=== PATIENT | male | born 1950 | race Caucasian/White ===

== ENCOUNTER → 2017-08-10 | Day surgery (SDC) | payer OTHER ==
[2017-07-25 13:10] VITALS: Ht 180.3 cm; Wt 79.5 kg
[~2017-08-10] VITALS: Ht 180.3 cm; Wt 79.5 kg
[~2017-08-10] MED LIST: ASPI81TA21 PO; ATOR-22 PO; DEXL60CA4 PO; IBUP-1050 PO; LIDOCAINE HCL 2% 2 ML VIAL (20MG/ML) ONE; LOSA50TA6 PO; NAPR-998 PO; PROPOFOL IV EMULSION 10 MG/ML 20 ML VIAL IV ONE; TAMS0.4C59 PO; TRIATAB3 PO; ZNTT/150 PO
--- NOTE | 2017-08-10 11:57 | Endo History and Physical ---
History & Physical Date of Service: Aug 10, 2017. Chief Complaint: Mart's,Gerd Referring Physician: Dr. 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 Past Medical History Arthritis, Male Genitourinary Prob., Reflux, High Cholesterol, Hypertension Past Surgical History Hx Cardiac Surgery: No Hx Internal Defibrillator: No Hx Pacemaker: No Hx Abdominal Surgery: No Hx of Implantable Prosthesis: No Hx Post-Op Nausea and Vomiting: No Hx Cancer Surgery: No Hx Thoracic Surgery: No Hx Orthopedic: Yes (LOWER BACK SYNOVIAL CYST REMOVAL) Hx Urinary Tract Surgery: No Family History None Social History Smoking Status: Former Smoker Hx Substance Use: No Hx Alcohol Use: No Allergies Coded Allergies: No Known Allergies (Verified , 08/10/17) Current Medications Reported Home Medications Medications Dose Route/Sig Max Daily Dose Days Date Category Dose Instructions Advil (Ibuprofen) 200 Mg Tab 400-600 Mg PO Q6H PRN 07/25/17 Reported Aleve Pm 220-25 mg (Naproxen Sodium-Diphenhydramin) 1 Tab Tab 2 Tabs PO HS 07/25/17 Reported Zantac (Ranitidine HCl) 150 Mg Tab 150 Mg PO HS 07/25/17 Reported Dexilant (Dexlansoprazole) 60 Mg Cap 60 Mg PO QAM 01/08/14 Reported TAKE 1/2HOUR PRIOR TO BREAKFAST Cozaar (Losartan Potassium) 50 Mg Tab 50 Mg PO QAM 06/04/13 Reported Flomax (Tamsulosin Hcl) 0.4 Mg Cap 0.4 Mg PO QAM 05/27/13 Reported Ecotrin Or Generic (Aspirin) 81 Mg Tab 81 Mg PO HS 05/27/13 Reported Lipitor (Atorvastatin Calcium) 20 Mg Tab 20 Mg PO QAM 05/27/13 Reported Triamterene/Hctz 37.5-25MG (Triamterene/HCTZ) 1 Tab Tab 0.5 Tab PO QAM 05/27/13 Reported Vital Signs Weight (Kilograms): 79.55 Height (Feet): 5 Height (Inches): 11 Date Time Temp Pulse Resp B/P (MAP) Pulse Ox O2 Delivery O2 Flow Rate FiO2 08/10/17 11:29 36.5 83 16 145/84 (104) 97 Room Air Physical Exam General Appearance: WD/WN, no apparent distress Respiratory/Chest: Auscultation: breath sounds normal Cardiovascular: Heart Auscultation: RRR Abdomen: Bowel Sounds: normal Inspection & Palpation: soft, non-distended, no tenderness, guarding & rebound Assessment and Plan Assessment: 67 yo CM who presents for 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 Plan: Proceed with EGD
--- NOTE | 2017-08-10 12:58 | GI REPORT ---
Procedure Date: 08/10/2017 12:35 PM Procedure: Upper GI endoscopy Indications: Follow-up of Mart's esophagus Medicines: Monitored Anesthesia Care Complications: No immediate complications. Estimated Blood Loss: Estimated blood loss: none. Procedure: Pre-Anesthesia Assessment: - Prior to the procedure, a History and Physical was performed, and patient medications and allergies were reviewed. The patient's tolerance of previous anesthesia was also reviewed. The risks and benefits of the procedure and the sedation options and risks were discussed with the patient. All questions were answered, and informed consent was obtained. Prior Anticoagulants: The patient has taken aspirin, last dose was 2 days prior to procedure. ASA Grade Assessment: III - A patient with severe systemic disease. After reviewing the risks and benefits, the patient was deemed in satisfactory condition to undergo the procedure. After obtaining informed consent, the endoscope was passed under direct vision. Throughout the procedure, the patient's blood pressure, pulse, and oxygen saturations were monitored continuously. The scope was introduced through the mouth, and advanced to the second part of duodenum. The upper GI endoscopy was accomplished without difficulty. The patient tolerated the procedure well. Findings: There were esophageal mucosal changes consistent with short-segment Mart's esophagus present at the gastroesophageal junction. The maximum longitudinal extent of these mucosal changes was 2 cm in length. Mucosa was biopsied with a cold forceps for histology. One specimen bottle was sent to pathology. A small hiatus hernia was present. A single 8 mm mucosal papule (nodule) with no bleeding and no stigmata of recent bleeding was found in the cardia. Biopsies were taken with a cold forceps for histology. The examined duodenum was normal. Impression: - Esophageal mucosal changes consistent with short-segment Mart's esophagus. Biopsied. - Small hiatus hernia. - A single mucosal papule (nodule) found in the stomach. Biopsied. - Normal examined duodenum. Recommendation: - Resume previous diet. - Continue present medications. - Await pathology results. - Return to primary care physician as previously scheduled. Mesfin Corral DO 08/10/2017 12:57:38 PM This report has been signed electronically. Note Initiated On: 08/10/2017 12:35 PM I attest to the content of the Intraoperative Record and orders documented therein, exceptions below
--- NOTE | 2017-08-10 13:14 | Anesthesiology Progress Note ---
Anesthesia Post Op Note Date & Time Aug 10, 2017 at 13:13 Vital Signs Pain Intensity: 0 Vital Signs Past 12 Hours Date Time Temp Pulse Resp B/P (MAP) Pulse Ox O2 Delivery O2 Flow Rate FiO2 08/10/17 13:09 86 16 118/86 (97) 96 Room Air 08/10/17 12:59 84 16 115/59 (77) 93 Room Air 08/10/17 11:29 36.5 83 16 145/84 (104) 97 Room Air Notes Mental Status: alert / awake / arousable, participated in evaluation Pt Amnestic to Procedure: Yes Nausea / Vomiting: adequately controlled Pain: adequately controlled Airway Patency, RR, SpO2: stable & adequate BP & HR: stable & adequate Hydration State: stable & adequate Anesthetic Complications: no major complications apparent
[2017-08-10 13:24] VITALS: BP 142/95; PULSE 70; O2SAT 96
--- NOTE | 2017-08-10 13:58 | Discharge Instructions ---
Endoscopy Patient Instructions Date / Procedure(s) Performed Aug 10, 2017. EGD Allergy Information Coded Allergies: No Known Allergies (Verified , 08/10/17) Discharge Date / Findings Aug 10, 2017. Gastric nodule s/p biopsies Mart's Esophagus s/p biopsies Medication Instructions Stopped Medication(s): took ASA last night OK to resume all medications today as prescribed Reported Home Medications Medications Dose Route/Sig Max Daily Dose Days Date Category Dose Instructions Advil (Ibuprofen) 200 Mg Tab 400-600 Mg PO Q6H PRN 07/25/17 Reported Aleve Pm 220-25 mg (Naproxen Sodium-Diphenhydramin) 1 Tab Tab 2 Tabs PO HS 07/25/17 Reported Zantac (Ranitidine HCl) 150 Mg Tab 150 Mg PO HS 07/25/17 Reported Dexilant (Dexlansoprazole) 60 Mg Cap 60 Mg PO QAM 01/08/14 Reported TAKE 1/2HOUR PRIOR TO BREAKFAST Cozaar (Losartan Potassium) 50 Mg Tab 50 Mg PO QAM 06/04/13 Reported Flomax (Tamsulosin Hcl) 0.4 Mg Cap 0.4 Mg PO QAM 05/27/13 Reported Ecotrin Or Generic (Aspirin) 81 Mg Tab 81 Mg PO HS 05/27/13 Reported Lipitor (Atorvastatin Calcium) 20 Mg Tab 20 Mg PO QAM 05/27/13 Reported Triamterene/Hctz 37.5-25MG (Triamterene/HCTZ) 1 Tab Tab 0.5 Tab PO QAM 05/27/13 Reported Provider Instructions Activity Restrictions - No exercising or heavy lifting for 24 hours. - Do not drink alcohol the day of the procedure. - Do not drive a car or operate machinery until the day after the procedure. - Do not make any important decisions or sign important papers in 24 hours after the procedure. Following Day: - Return to full activity which may include returning to work/school. Diet Start your diet with liquids and light foods (jello, soup, juice, toast). Then eat your usual diet if not nauseated. Treatment For Common After Affects For mild abdominal pain, bloating, or excessive gas: - Rest - Eat lightly - Lie on right side Follow-Up Information Follow-up with Dr. Callejas as scheduled Anesthesia Information What You Should Know You have had a procedure that required some medicine to reduce anxiety and discomfort. This treatment is called moderate sedation. After receiving the treatment, you may be sleepy, but you will be able to breathe on your own. The effects of the treatment may last for several hours. Follow these instructions along with Activity/Diet recommendations noted above: * Do NOT do anything where dizziness or clumsiness would be dangerous. * Rest quietly at home today, then you can be up and about tomorrow. * Have a responsible person stay with you the rest of today. * You may have had an I.V. today. If so, you may take the dressing off later today. Recommendations Call your doctor if: * Trouble breathing * Continuous vomiting for more than 24 hours * Temperature above 101 degrees * Severe abdominal pain or bloating * Pain not relieved by pain medicine ordered * There is increased drainage or redness from any incision * A large amount of rectal bleeding greater than 2-3 tablespoons. (If you had a polyp/s removed or have hemorrhoids, a small amount of blood - from the rectum is to be expected.) * You have any unanswered questions or concerns. IN THE EVENT OF A SERIOUS EMERGENCY, GO TO THE NEAREST EMERGENCY ROOM Your discharge instructions were prepared by provider Mesfin Corral. Patient Instructions Signature Page Brando Badillo Patient (or Guardian) Signature/Date: I have read and understand the instructions given to me by my caregivers. Caregiver/RN/Doctor Signature/Date: The above-named patient and/or guardian has received patient instructions on this date. + Original Patient Signature Page (only) stays with chart. Please make copy for patient.
== END | disposition home or self-care (01) ==
LOC: C.GI 11:06
PROVIDERS: ATTEND Internal Medicine
DX: K22.70 Barrett's esophagus without dysplasia (principal); K21.9 Gastro-esophageal reflux disease without esophagitis; K31.9 Disease of stomach and duodenum, unspecified; M19.90 Unspecified osteoarthritis, unspecified site; E78.00 Pure hypercholesterolemia, unspecified; I10 Essential (primary) hypertension; Z87.891 Personal history of nicotine dependence; Z79.82 Long term (current) use of aspirin; K44.9 Diaphragmatic hernia without obstruction or gangrene

== ENCOUNTER → 2017-11-01 | Outpatient (CLI) | payer OTHER ==
[~2017-11-01] MED LIST changes: -LIDOCAINE HCL 2% 2 ML VIAL (20MG/ML) ONE; -PROPOFOL IV EMULSION 10 MG/ML 20 ML VIAL IV ONE
[2017-11-01 13:29] LABS: BASO % 0.2 %; BASO ABS # 0.01 K/uL (0-0.2); COMPLETE YES; EOS % 1.7 %; HEMATOCRIT 44.2 % (42-52); IG% 0.2 %; LYMPH % 21.9 %; LYMPH ABS # 1.31 K/uL (1.2-3.4); MEAN CORPUSCULAR HEMOGLOBIN 31.1 pg (25-34); MEAN CORPUSCULAR HGB CONC 35.3 g/dl (32-36); MEAN PLATELET VOLUME 10.7 fL (7.4-10.4); MONO % 7.9 %; NEUT % 68.1 %; PLATELET COUNT 177 K/uL (130-400); RED BLOOD COUNT 5.02 M/uL (4.7-6.1); WHITE BLOOD COUNT 5.98 K/uL (4.8-10.8)
[2017-11-01 13:46] LABS: ALT/SGPT 39 U/L (12-78); AST/SGOT 23 U/L (15-37); BLOOD UREA NITROGEN 20 mg/dl (7-18); BUN/CREATININE RATIO 20.1 (10-20); CARBON DIOXIDE 28 mmol/L (21-32); CHLORIDE 106 mmol/L (98-107); GLUCOSE 98 mg/dl (70-99); MAGNESIUM 2.4 mg/dl (1.8-2.4); POTASSIUM 3.6 mmol/L (3.5-5.1); SODIUM 139 mmol/L (136-145)
[2017-11-01 13:50] LABS: ALB/GLOB RATIO 1.1 (0.9-2); ALKALINE PHOSPHATASE 125 U/L (45-117); CHOLESTEROL 150 mg/dl (0-200); CHOLESTEROL/HDL RATIO 2.5; HDL CHOLESTEROL 59 mg/dl; TRIGLYCERIDES 85 mg/dl (0-150); VERY LOW DENSITY LIPOPROT CALC 17 mg/dl
[2017-11-01 14:15] LABS: ESTIMATED AVERAGE GLUCOSE 105 mg/dl; HA1C FLAG Normal (Normal)
== END | disposition home or self-care (01) ==
LOC: C.LABSPEC 12:32
PROVIDERS: ATTEND Internal Medicine
DX: I10 Essential (primary) hypertension (principal); E78.5 Hyperlipidemia, unspecified; R73.9 Hyperglycemia, unspecified

== ENCOUNTER → 2018-01-13 | Outpatient (CLI) | payer OTHER ==
[~2018-01-13] MED LIST changes: +RANI150T85 PO; -ZNTT/150 PO
[2018-01-18 15:36] LABS: FECAL OCCULT BLOOD #1 NEGATIVE (NEGATIVE); FECAL OCCULT BLOOD #2 NEGATIVE (NEGATIVE); FECAL OCCULT BLOOD #3 NEGATIVE (NEGATIVE)
== END | disposition home or self-care (01) ==
LOC: C.LABSPEC 15:00
PROVIDERS: ATTEND Internal Medicine
DX: Z12.11 Encounter for screening for malignant neoplasm of colon (principal)

== ENCOUNTER 2019-12-15 00:56 | Observation (INO) ==
[2019-12-15 02:25] LABS: Basophils # (auto) 0.01 K/uL (0-0.2); Basophils % (auto) 0.2 %; Eosinophils # (auto) 0.18 K/uL (0-0.5); Eosinophils % (auto) 2.7 %; Hematocrit (blood only) 39.8 % (42-52); Hemoglobin 13.4 g/dL (14.0-18.0); Immature Granulocytes # (auto) 0.01 K/uL (0.00-0.02); Immature Granulocytes % (auto) 0.2 %; Lymphocytes % (auto) 24.1 %; Mean Corpuscular Hgb Conc 33.7 g/dL (32-36); Mean Corpuscular Volume 86.1 fL (80-100); Mean Platelet Volume 10.3 fL (7.4-10.4); Monocytes # (auto) 0.61 K/uL (0.11-0.59); Monocytes % (auto) 9.2 %; Neutrophils # (auto) 4.23 K/uL (1.4-6.5); Neutrophils % (auto) 63.6 %; Platelet Count 168 K/uL (130-400); RDW Coefficient of Variation 13.4 % (11.5-14.5); RDW Standard Deviation 41.9 fL (36.4-46.3); Red Blood Count 4.62 M/uL (4.7-6.1); White Blood Count 6.64 K/uL (4.8-10.8)
[2019-12-15 02:33] LABS: Albumin Level 3.3 gm/dl (3.4-5.0); BUN Creatinine Ratio 18.7 (10-20); Calcium 8.3 mg/dl (8.5-10.1); Creatinine Clr Calc Pharmacy 67.2 ml/min; Est GFR (African American) 79.3; Est GFR (Non-African American) 68.4; Potassium 3.5 mmol/L (3.5-5.1)
[2019-12-15 02:39] LABS: Bilirubin,Total 0.5 mg/dl (0.2-1); Globulin 3.2 gm/dl (2.5-4.0); Total Protein 6.5 gm/dl (6.4-8.2); Troponin I 0.055 ng/ml (0-0.045)
[2019-12-15 02:40] LABS: Partial Thromboplastin Time 26.6 Seconds (21.0-31.0); Prothrombin Time 10.7 Seconds (9.0-12.0)
[2019-12-15] MEDS ORDERED: FUROSEMIDE 40 MG/4 ML VIAL IV STA (02:41)
[2019-12-15] MEDS ORDERED: ASPIRIN CHEW 324 MG PO STA (02:41)
[2019-12-15] MEDS ORDERED: HEPARIN SODIUM/DEXTROSE 25,000 UNITS/500 ML BAG IV SCH (02:45)
[2019-12-15] MEDS ORDERED: HEPARIN SOD 5,000 UNIT/0.5 ML VIAL ONE (02:50)
[2019-12-15] MEDS ORDERED: Heparin BOLUS **ED Use Only IV STA (03:35)
[2019-12-15] MEDS ORDERED: Heparin Adult STANDARD Wt-Based Dextrose 5% 25,000 units/500 mL IV SCH (03:45)
[2019-12-15 03:57] LABS: Appearance Urine Cloudy (Clear); Bacteria Urine Automated Negative (Negative); Bilirubin Urine Negative (Negative); Blood Urine Negative (Negative); Cast Urine Automated 0 /lpf (0-5); Color Urine Yellow; Epithelial Cell Urine Auto 0-5 /lpf (0-5); Glucose Urine UA Negative (Negative); Ketones Urine Negative (Negative); Leukocyte Esterase Urine Negative (Negative); Nitrite Urine Negative (Negative); Protein Urine Negative (Negative); RBC Urine Automated 0-4 /hpf (0-4); Specific Gravity Urine 1.009 (1.000-1.030); Urobilinogen Urine Negative (Negative); WBC Urine Automated 0 /hpf (0-5); pH Urine 6.5 (4.5-7.5)
--- NOTE | 2019-12-15 04:19 | History & Physical Report ---
Date of Service December 15, 2019 Assessment & Plan (1) Orthopnea: Brando Arnold is a 69 y/o male with past medical history of HTN, BPH, HLD, GERD, Insomnia who presents with CC of Orthopnea. - Received Lasix 20mg IV in ED, clinically no further indication to repeat - CXR in ED performed without rad interpretation, possible there could be some pulmonary edema, but no overt pulmonary congestion, follow up on interpretation - This could be CHF based on symptoms, and will get a Transthoracic echo - mildly elevated trop 0.055 and will trend - if normal TTE, consider possible orthopnea caused by reflux as also noting chronic cough, but need to rule out/investgate CHF - Was started on Heparin Bolus in ED and thus continue with Heparin - okay to continue with home ASA 81mg daily - Nitro SL for chest pain PRN - cardiac monitoring - doubt PE as oxygenating well and no pleuritic chest pain, feels better s/p Lasix Code: Full FENGI: NPO as of now, PPI for GI coverage DVT ppx: Heparin Dispo: Obs to med/surg tele (2) Elevated troponin: as above (3) Hypertension: - continue with home losartan 50mg qday - continue with home triamterene-HCTZ daily (4) HLD (hyperlipidemia): - continue with home Atorvastatin 20mg daily (5) BPH (benign prostatic hyperplasia): - continue with home Tamsulosin 0.4mg daily (6) Difficulty sleeping: - continue with home Trazodone 50mg qHS History of Present Illness Chief Complaint: Orthopnea Primary Care Provider: Kieran Callejas MD Brando Arnold is a 69 y/o male with past medical history of HTN, BPH, HLD, GERD, Insomnia who presents with CC of Orthopnea. He notes for the past 3 days, he has been unable to lay supine without awakening short of breath. He notes that he has had a chronic cough for the past 3 weeks with productive clear sputum. He denies any chest pain or shortness of breath at rest while sitting up or with exertion. He denies any previous PR, CAD or heart disease. He notes several years ago he had an exercise cardiac stress test which was negative. He denies any nausea, vomiting, diaphoresis. He was given Lasix in the ED and notes feeling improved. He also had a slightly elevated trop at 0.055. He notes he did get the influenza vaccine and hasn't had any recent cold like symptoms. He denies any lower extremity edema or abdominal distention or weight gain. He notes he was a former smoker in his 20's without significant smoking history. Allergies Allergy/AdvReac Type Severity Reaction Status Date / Time No Known Allergies Allergy Verified 12/15/19 01:48 Home Medications Home Medications Medication Instructions Recorded Confirmed Type trazodone 50 mg tablet 50 mg PO HS 09/25/19 12/15/19 History aspirin 81 mg PO DAILY 12/15/19 12/15/19 History atorvastatin 20 mg PO DAILY 12/15/19 12/15/19 History dexlansoprazole [Dexilant] 60 mg PO DAILY 12/15/19 12/15/19 History losartan 50 mg PO DAILY 12/15/19 12/15/19 History tamsulosin 0.4 mg PO DAILY 12/15/19 12/15/19 History triamterene-hydrochlorothiazid 1 tab PO DAILY 12/15/19 12/15/19 History Past Med/Surg History Medical History Herniated nucleus pulposus, lumbar (Inactive) Hypertension Surgical History No pertinent past surgical history Social History Preferred Language: [place] Communication Ability: Effective 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 Beliefs That Will Affect Care: None Current Living Situation: Spouse Other Information That Helps Us Care for You: No Feels Safe at Home: Yes Safety Concerns: Feels Safe At This Time Smoking Status: Never smoker Do You Dip or Chew Tobacco: No ; Second Hand Exposure: No ; Hx Alcohol Use: Yes Alcohol type: other Hx Substance Use: No Review of Systems Review of Systems: All systems reviewed & are unremarkable except as noted in HPI & below Constitutional: no fever and no chills Eyes: no diplopia and no worsening vision Ear, Nose, Mouth, Throat: + nasal congestion; no sore throat Respiratory: + cough; no pain on inspiration Cardiovascular: no chest pain and no dyspnea at rest Gastrointestinal: no abdominal pain, no nausea and no vomiting Musculoskeletal: no back pain and no neck pain Neurologic: no generalized weakness and no headache(s) Physical Exam Constitutional: WD/WN, vitals as above comfortable and + combative; not ill appearing Eyes: PERRL, conjunctivae normal, anicteric sclerae ENMT: external ear and nose normal, oropharynx normal Neck: normal visual inspection and trachea midline Respiratory: normal respiratory effort; no respiratory distress and does not use accessory muscles Auscultation: + wheezes (mild posterior left lung base) Cardiovascular: Rate/Rhythm: regular rate and regular rhythm (w/occasional PVCs) Extremities: no edema Gastrointestinal (Abdomen): Inspection/Auscultation: normal bowel sounds; abdomen not distended Percussion/Palpation: abdomen soft; abdomen nontender, no guarding and abdomen not rigid Musculoskeletal: Head/Neck/Chest: normocephalic and head atraumatic Skin: no rashes, warm and dry Neurologic: moves all extremities and awake Psychiatric: A+Ox3, euthymic affect Results & Data Vital Signs (Past 12 Hours) Vital Signs Temp Pulse Resp BP Pulse Ox 12/15/19 02:29 94 H 23 144/96 H 95 12/15/19 02:01 94 12/15/19 00:58 36.7 C 83 19 154/97 H 94 Laboratory Results Laboratory Results - last 24 hr 12/15/19 12/15/19 12/15/19 01:39 01:39 01:39 WBC 6.64 RBC 4.62 L Hgb 13.4 L Hct 39.8 L MCV 86.1 MCH 29.0 MCHC 33.7 RDW Std Deviation 41.9 RDW Coeff of Stefanie 13.4 Plt Count 168 MPV 10.3 Immature Gran % (Auto) 0.2 Neut % (Auto) 63.6 Lymph % (Auto) 24.1 [place] % (Auto) 9.2 Eos % (Auto) 2.7 Baso % (Auto) 0.2 Immature Gran # (Auto) 0.01 Neut # (Auto) 4.23 Lymph # (Auto) 1.60 [place] # (Auto) 0.61 H Eos # (Auto) 0.18 Baso # (Auto) 0.01 PT 10.7 INR 1.0 APTT 26.6 PTT Ratio 1.0 Sodium 143 Potassium 3.5 Chloride 111 H Carbon Dioxide 27 Anion Gap 5.0 BUN 20 H Creatinine 1.09 Est Cr Clr Drug Dosing 67.2 Est GFR ( Amer) 79.3 Est GFR (Non-Af Amer) 68.4 BUN/Creatinine Ratio 18.7 Glucose 104 H Calcium 8.3 L Total Bilirubin 0.5 AST 19 ALT 31 Alkaline Phosphatase 106 Troponin I 0.055 H* NT-Pro-B Natriuret Pep 1215 H Total Protein 6.5 Albumin 3.3 L Globulin 3.2 Albumin/Globulin Ratio 1.0 Urine Color Urine Appearance Urine pH Ur Specific [place] Urine Protein Urine Glucose (UA) Urine Ketones Urine Blood Urine Nitrite Urine Bilirubin Urine Urobilinogen Ur Leukocyte Esterase Urine WBC (Auto) Urine RBC (Auto) U Hyaline Cast (Auto) U Epithel Cells (Auto) Urine Bacteria (Auto) 12/15/19 03:45 WBC RBC Hgb Hct MCV MCH MCHC RDW Std Deviation RDW Coeff of Stefanie Plt Count MPV Immature Gran % (Auto) Neut % (Auto) Lymph % (Auto) [place] % (Auto) Eos % (Auto) Baso % (Auto) Immature Gran # (Auto) Neut # (Auto) Lymph # (Auto) [place] # (Auto) Eos # (Auto) Baso # (Auto) PT INR APTT PTT Ratio Sodium Potassium Chloride Carbon Dioxide Anion Gap BUN Creatinine Est Cr Clr Drug Dosing Est GFR ( Amer) Est GFR (Non-Af Amer) BUN/Creatinine Ratio Glucose Calcium Total Bilirubin AST ALT Alkaline Phosphatase Troponin I NT-Pro-B Natriuret Pep Total Protein Albumin Globulin Albumin/Globulin Ratio Urine Color Yellow Urine Appearance Cloudy A Urine pH 6.5 Ur Specific [place] 1.009 Urine Protein Negative Urine Glucose (UA) Negative Urine Ketones Negative Urine Blood Negative Urine Nitrite Negative Urine Bilirubin Negative Urine Urobilinogen Negative Ur Leukocyte Esterase Negative Urine WBC (Auto) 0 Urine RBC (Auto) 0-4 U Hyaline Cast (Auto) 0 U Epithel Cells (Auto) 0-5 Urine Bacteria (Auto) Negative Medications Administered Heparin Sodium/Dextrose (Heparin Sodium/Dextrose) 25,000 units in 500 mls @ 0.02 mls/hr IV .Q24H [facility]; Protocol Stop: 01/14/20 02:44 Last Admin: 12/15/19 02:55 Dose: 1,400 units/hr, 28 mls/hr Documented by: [id number] Cosigned by: [id number] Heparin Sodium/Dextrose (Heparin Sodium/Dextrose) 25,000 units in 500 mls @ 28 mls/hr IV .[id number] [facility]; Protocol Stop: 01/14/20 03:44 Last Admin: 12/15/19 03:38 Dose: Not Given Documented by: [id number] Code Status & VTE Plan Code Status full code VTE Prophylaxis Plan VTE Prophylaxis will be ordered: Yes Supervising Physician Co-Signing Physician Notes Attending addendum: I have physically seen this patient, have supervised the medical residents activities, and agree with the H&P unless as otherwise noted. Assessment and Plan: Elevated troponin/pulmonary edema/hypertension- The patient will be admitted to telemetry for serial cardiac enzymes, serial EKG's, cardiac rhythm monitoring and a 2-D echocardiogram with Dopplers. Follow response to Lasix 20 mg IV, and re-dose as needed. Patient has already received heparin 6000 IV bolus and then started on standard heparin drip protocol by the ED staff. Continue Nitropaste 1 inch anterior chest wall every 6 hours Will continue heparin drip for now, consult cardiology for their opinion. Continue aspirin 81 mg p.o. daily, losartan 50 mg p.o. daily and triamterene HCTZ 1 tablet p.o. daily. If heart rate stays at present rate in 80s to low 90s, would start metoprolol succinate 25 mg p.o. twice daily. Did have discussion with patient regarding low-sodium diet, as he admits to having excessive amounts of sodium over the last few months Remainder of orders and notations as noted. Resident Activity Tracking Resident Involvement: Resident Care Provided Care Provided: Adult Hospital Medicine
[2019-12-15] MEDS ORDERED: ACETAMINOPHEN 325 MG TAB PO PRN (05:11)
[2019-12-15] MEDS ORDERED: ALUMINUM/MAGNESIUM SUSP 30 ML UDC PO PRN (05:11)
[2019-12-15] MEDS ORDERED: NITROGLYCERIN SL 0.4 MG/TAB TAB SL PRN (05:11)
[2019-12-15] MEDS ORDERED: ONDANSETRON INJ 2 MG/ML 2 ML VIAL IV PRN (05:11)
[2019-12-15] MEDS ORDERED: POLYETHYLENE (MIRALAX) 17 GM PACK PO PRN (05:11)
[2019-12-15] MEDS ORDERED: MAGNESIUM HYDROXIDE SUSP 30 ML UDC PO PRN (05:11)
--- NOTE | 2019-12-15 06:00 | Billing Data ---
Date of Service December 15, 2019 Coding Level of Care Code 34021 Initial Inpt Care Lvl 3
--- NOTE | 2019-12-15 06:26 | Emergency Department Note ---
Entered by Tangela Esqueda acting as a scribe for History of Present Illness General Chief complaint: Respiratory Problems Stated complaint: HAVING TROUBLE BREATHING Time Seen by Provider: 12/15/19 01:06 Source: patient History of Present Illness Provider complaint: shortness of breath Onset (ago): day(s) 3 Location: chest Radiation: non-radiation Pain Consistency: + intermittent Maximum Pain Intensity: 1 Relieved By: + other (sitting up ) Exacerbated By: + other (lying flat) Associated symptoms: + denies other symptoms, + chest pain and + other (back pain ) The patient is a 69 y/o male who presents to the emergency department for evaluation of intermittent shortness of breath that began three days ago. The patient states that for the past three nights he has been experiencing shortness of breath when he lays flat. He notes he has intermittent chest pain as well as some upper back pain. The patient denies abdominal pain, and any other symptoms. Home Medications Home Medications Medication Instructions Recorded Confirmed Type trazodone 50 mg tablet 50 mg PO HS 09/25/19 12/15/19 History aspirin 81 mg PO DAILY 12/15/19 12/15/19 History atorvastatin 20 mg PO DAILY 12/15/19 12/15/19 History dexlansoprazole [Dexilant] 60 mg PO DAILY 12/15/19 12/15/19 History losartan 50 mg PO DAILY 12/15/19 12/15/19 History tamsulosin 0.4 mg PO DAILY 12/15/19 12/15/19 History triamterene-hydrochlorothiazid 1 tab PO DAILY 12/15/19 12/15/19 History Allergies Allergy/AdvReac Type Severity Reaction Status Date / Time No Known Allergies Allergy Verified 12/15/19 01:48 Past Med/Surg History Medical History Herniated nucleus pulposus, lumbar (Inactive) Hypertension Surgical History No pertinent past surgical history Social History Preferred Language: Gibraltarian Communication Ability: Effective Vehicle Washer Required: No Beliefs That Will Affect Care: None Current Living Situation: Spouse Other Information That Helps Us Care for You: No Feels Safe at Home: Yes Safety Concerns: Feels Safe At This Time Smoking Status: Never smoker Do You Dip or Chew Tobacco: No ; Second Hand Exposure: No ; Hx Alcohol Use: Yes Alcohol type: other Hx Substance Use: No Review of Systems See HPI for pertinent positives & negatives. and A total of 10 systems reviewed and were otherwise negative Physical Exam Vital Signs Vital Signs - 24 hr 12/15/19 00:58 12/15/19 02:01 12/15/19 02:29 Temperature 36.7 C Temperature Source Oral Pulse Rate 83 94 H Pulse Rate from SpO2 Sensor 98 H Respiratory Rate 19 23 Respiratory Effort / Characteristics Non-Labored Respiratory Depth Normal Blood Pressure 154/97 H 144/96 H Blood Pressure Mean 116 101 Pulse Oximetry 94 94 95 Oxygen Delivery Method Room Air Room Air Sepsis Recent Fever Within 48 Hours No Sepsis Action Taken by Nursing No Action Required HEENT: Head - normocephalic and atraumatic Pupils are equal, round, and reactive to light. Extraocular eye muscles are intact, and sclera are anicteric. Nose - moist nasal mucosa without discharge. Mouth - moist buccal mucosa. Oropharynx is nonerythematous and there is no tonsillar exudate or edema noted. Neck: Supple; no JVD, nuchal rigidity, cervical lymphadenopathy, or auscultated bruits. Heart: Regular rate and irregular rhythm. There is a normal S1 and S2 with no murmurs, clicks, or gallops appreciated. Lungs: No wheezes or rhonchi. Rales noted. Abdomen: Soft, completely nontender, nondistended, with good bowel sounds. There are no palpable pulsatile masses or hepatosplenomegaly. There is no guarding, rigidity, or rebound noted. Extremities: No evidence of cyanosis, clubbing, or edema. There are easily palpable peripheral pulses. Skin: warm and dry with good turgor and no rashes. Course Course 0112: Past medical records reviewed. The patient was evaluated in room B08. A complete history and physical exam was performed. A twelve-lead EKG was obtained. An IV lock was initiated and labs are drawn as above. An order was placed for continuous cardiac monitoring. The patient remains in a normal sinus rhythm at 90. 0241: I checked on the patient and updated him on his results. He is agreeable to admission. I ordered heparin sodium 500 ml IV, aspirin 324 mg PO, and Lasix 20 mg IV. 0340: I [place]. [place] [facility]. He will evaluate for further management. Administered Medications Heparin Sodium/Dextrose (Heparin Sodium/Dextrose) 25,000 units in 500 mls @ 0.02 mls/hr IV .Q24H [facility]; Protocol Stop: 01/14/20 02:44 Last Titration: 12/15/19 06:01 Dose: 1,400 units/hr, 28 mls/hr Documented by: [id number] Cosigned by: [id number] Admin: 12/15/19 02:55 Dose: 1,400 units/hr, 28 mls/hr Documented by: [id number] Cosigned by: [id number] Heparin Sodium/Dextrose (Heparin Sodium/Dextrose) 25,000 units in 500 mls @ 28 mls/hr IV .[id number] [facility]; Protocol Stop: 01/14/20 03:44 Last Admin: 12/15/19 03:38 Dose: Not Given Documented by: [id number] Discontinued Medications Aspirin (Aspirin) 324 mg PO NOW STA Stop: 12/15/19 02:42 Last Admin: 12/15/19 02:53 Dose: 324 mg Documented by: [id number] Furosemide (Lasix) 20 mg IV NOW STA Stop: 12/15/19 02:42 Last Admin: 12/15/19 02:55 Dose: 20 mg Documented by: [id number] Heparin Sodium (Porcine) (Heparin Sodium (Porcine)) Confirm Administered Dose 10,000 units .ROUTE .[facility] Stop: 12/15/19 02:51 Last Admin: 12/15/19 02:55 Dose: 10,000 units Documented by: [id number] Cosigned by: [id number] Heparin Sodium (Porcine) (Heparin Iv Bolus) 6,000 units IV NOW STA Stop: 12/15/19 03:36 Last Admin: 12/15/19 03:38 Dose: Not Given Documented by: [id number] Heparin Sodium/Dextrose () 1 ea IV NOW STA; Protocol Stop: 12/15/19 02:42 Last Admin: 12/15/19 02:55 Dose: 1 ea Documented by: [id number] Critical Care Time Critical Care Time: Yes Total Critical Care Time: 45 I have personally spent 45 minutes of critical care time in the direct management of this patient. This includes bedside care, interpretation of diagnostic studies, and testing, discussion with consultants, patient, and family members, and other required patient management activities. This 45 minutes is in excess of all separately billable procedures. Medical Decision Making Differential Diagnosis Differential diagnosis: orthopnea, STEMI, acute coronary syndrome, CHF, GERD, pneumonia. Medical Records Attestation: I reviewed the patient's medical records. Home Medications Current Medication List: was personally reviewed by me Laboratory Data Attestation: I reviewed the patient's lab results. Result diagrams: 12/15/19 01:39 12/15/19 01:39 Lab Results 12/15/19 12/15/19 12/15/19 Range/Units 01:39 01:39 01:39 WBC 6.64 (4.8-10.8) K/uL RBC 4.62 L (4.7-6.1) M/uL Hgb 13.4 L (14.0-18.0) g/dL Hct 39.8 L (42-52) % MCV 86.1 (80-100) fL MCH 29.0 (25-34) pg MCHC 33.7 (32-36) g/dL RDW Std Deviation 41.9 (36.4-46.3) fL RDW Coeff of Stefanie 13.4 (11.5-14.5) % Plt Count 168 (130-400) K/uL MPV 10.3 (7.4-10.4) fL Immature Gran % (Auto) 0.2 % Neut % (Auto) 63.6 % Lymph % (Auto) 24.1 % [place] % (Auto) 9.2 % Eos % (Auto) 2.7 % Baso % (Auto) 0.2 % Immature Gran # (Auto) 0.01 (0.00-0.02) K/uL Neut # (Auto) 4.23 (1.4-6.5) K/uL Lymph # (Auto) 1.60 (1.2-3.4) K/uL [place] # (Auto) 0.61 H (0.11-0.59) K/uL Eos # (Auto) 0.18 (0-0.5) K/uL Baso # (Auto) 0.01 (0-0.2) K/uL PT 10.7 (9.0-12.0) Seconds INR 1.0 (0.9-1.1) APTT 26.6 (21.0-31.0) Seconds PTT Ratio 1.0 Sodium 143 (136-145) mmol/L Potassium 3.5 (3.5-5.1) mmol/L Chloride 111 H (98-107) mmol/L Carbon Dioxide 27 (21-32) mmol/L Anion Gap 5.0 (3-11) BUN 20 H (7-18) mg/dl Creatinine 1.09 (0.6-1.4) mg/dl Est Cr Clr Drug Dosing 67.2 ml/min Est GFR ( Amer) 79.3 Est GFR (Non-Af Amer) 68.4 BUN/Creatinine Ratio 18.7 (10-20) Glucose 104 H (70-99) mg/dl Calcium 8.3 L (8.5-10.1) mg/dl Total Bilirubin 0.5 (0.2-1) mg/dl AST 19 (15-37) U/L ALT 31 (12-78) U/L Alkaline Phosphatase 106 (45-117) U/L Troponin I 0.055 H* (0-0.045) ng/ml NT-Pro-B Natriuret Pep 1215 H (0-900) pg/ml Total Protein 6.5 (6.4-8.2) gm/dl Albumin 3.3 L (3.4-5.0) gm/dl Globulin 3.2 (2.5-4.0) gm/dl Albumin/Globulin Ratio 1.0 (0.9-2) Urine Color Urine Appearance (Clear) Urine pH (4.5-7.5) Ur Specific Laurel (1.000-1.030) Urine Protein (Negative) Urine Glucose (UA) (Negative) Urine Ketones (Negative) Urine Blood (Negative) Urine Nitrite (Negative) Urine Bilirubin (Negative) Urine Urobilinogen (Negative) Ur Leukocyte Esterase (Negative) Urine WBC (Auto) (0-5) /hpf Urine RBC (Auto) (0-4) /hpf U Hyaline Cast (Auto) (0-5) /lpf U Epithel Cells (Auto) (0-5) /lpf Urine Bacteria (Auto) (Negative) 12/15/19 Range/Units 03:45 WBC (4.8-10.8) K/uL RBC (4.7-6.1) M/uL Hgb (14.0-18.0) g/dL Hct (42-52) % MCV (80-100) fL MCH (25-34) pg MCHC (32-36) g/dL RDW Std Deviation (36.4-46.3) fL RDW Coeff of Stefanie (11.5-14.5) % Plt Count (130-400) K/uL MPV (7.4-10.4) fL Immature Gran % (Auto) % Neut % (Auto) % Lymph % (Auto) % [place] % (Auto) % Eos % (Auto) % Baso % (Auto) % Immature Gran # (Auto) (0.00-0.02) K/uL Neut # (Auto) (1.4-6.5) K/uL Lymph # (Auto) (1.2-3.4) K/uL [place] # (Auto) (0.11-0.59) K/uL Eos # (Auto) (0-0.5) K/uL Baso # (Auto) (0-0.2) K/uL PT (9.0-12.0) Seconds INR (0.9-1.1) APTT (21.0-31.0) Seconds PTT Ratio Sodium (136-145) mmol/L Potassium (3.5-5.1) mmol/L Chloride (98-107) mmol/L Carbon Dioxide (21-32) mmol/L Anion Gap (3-11) BUN (7-18) mg/dl Creatinine (0.6-1.4) mg/dl Est Cr Clr Drug Dosing ml/min Est GFR ( Amer) Est GFR (Non-Af Amer) BUN/Creatinine Ratio (10-20) Glucose (70-99) mg/dl Calcium (8.5-10.1) mg/dl Total Bilirubin (0.2-1) mg/dl AST (15-37) U/L ALT (12-78) U/L Alkaline Phosphatase (45-117) U/L Troponin I (0-0.045) ng/ml NT-Pro-B Natriuret Pep (0-900) pg/ml Total Protein (6.4-8.2) gm/dl Albumin (3.4-5.0) gm/dl Globulin (2.5-4.0) gm/dl Albumin/Globulin Ratio (0.9-2) Urine Color Yellow Urine Appearance Cloudy A (Clear) Urine pH 6.5 (4.5-7.5) Ur Specific [place] 1.009 (1.000-1.030) Urine Protein Negative (Negative) Urine Glucose (UA) Negative (Negative) Urine Ketones Negative (Negative) Urine Blood Negative (Negative) Urine Nitrite Negative (Negative) Urine Bilirubin Negative (Negative) Urine Urobilinogen Negative (Negative) Ur Leukocyte Esterase Negative (Negative) Urine WBC (Auto) 0 (0-5) /hpf Urine RBC (Auto) 0-4 (0-4) /hpf U Hyaline Cast (Auto) 0 (0-5) /lpf U Epithel Cells (Auto) 0-5 (0-5) /lpf Urine Bacteria (Auto) Negative (Negative) Imaging Data Attestation: I personally reviewed and interpreted this imaging study as follows: My Impression: Chest x-ray: Showed cardiomegaly and acute pulmonary edema. ECG Data Attestation: I personally reviewed and interpreted this ECG as follows: Indication: + SOB/dyspnea Rate (beats per minute): 99 Rhythm: + sinus rhythm ECG Findings: + PVCs (frequent multifocal ) Blood Pressure Blood Pressure Findings: Elevated blood pressure Blood Pressure Disposition: further management by hospitalist MDM Narrative The patient is a 69 y/o male who presents to the emergency department for evaluation of intermittent shortness of breath that began three days ago. The patient describes extreme orthopnea. He also describes intermittent episodes of substernal chest discomfort. EKG showed multifocal PVCs but no ischemic changes. Patient had a positive troponin and elevated BNP. Chest x-ray shows obvious pulmonary edema. Patient was medicated with IV heparin and oral aspirin. He also received IV Lasix and began to diurese. The patient remained hemodynamically stable. I discussed the case with the [facility] Hospitalist and they will evaluate for further management. Impression & Plan Non-ST elevation AK (NSTEMI), CHF (congestive heart failure), Orthopnea Discharge Plan Visit Data *Final* Discharge Date/Time: 12/15/19 04:18 Chief Complaint: Respiratory Problems Stated Complaint: HAVING TROUBLE BREATHING ED Provider: Lorena Mckeon Discharge Problem: Non-ST elevation AK (NSTEMI), CHF (congestive heart failure), Orthopnea Patient Disposition: Admitted As Inpatient Discharge Instructions Interventions: ED Discharge Assessment Last Done: 12/15/19 04:18 Discharge Problem: CHF (congestive heart failure) Qualifiers: Heart failure type: unspecified Heart failure chronicity: unspecified Qualified Code(s): I50.9 - Heart failure, unspecified The scribe's documentation has been prepared under my direction and personally reviewed by me in its entirety. I confirm that the note above accurately reflects all work, treatment, procedures, and medical decision making performed by me.
--- NOTE | 2019-12-15 06:39 | XRay Report ---
XR chest 1V portable CLINICAL HISTORY: Dyspnea COMPARISON STUDY: Chest radiograph May 17, 2015. FINDINGS: Lung volumes are normal. There is no pneumothorax or pleural effusion. Minimal left basilar opacity favors atelectasis. There is pulmonary vascular congestion with possible mild pulmonary christian a. Mild cardiomegaly is noted. IMPRESSION: Pulmonary vascular congestion with possible mild pulmonary edema. ACT 112: Negative or not required by law. Electronically signed by: Art Castillo M.D. 12/15/2019 6:38 AM
[2019-12-15] MEDS: PANTOprazole 40 MG TAB PO SCH (08:28)
[2019-12-15] MEDS: TAMSULOSIN HCL 0.4 MG CAP PO SCH (08:28)
[2019-12-15] MEDS: ATORVASTATIN 20 MG TAB PO SCH (08:28)
[2019-12-15] MEDS: LOSARTAN POTASSIUM 50 MG TAB PO SCH (08:28)
[2019-12-15] MEDS ORDERED: TRIAMTERENE/HCTZ 37.5/25MG TAB PO SCH (09:00)
[2019-12-15 09:33] LABS: Partial Thromboplastin Ratio 4.5
[2019-12-15 09:38] LABS: Partial Thromboplastin Time 122.1 Seconds (21.0-31.0)
--- NOTE | 2019-12-15 10:37 | XCELERA ---
[id number] \\[email or web address]\[id number]
--- NOTE | 2019-12-15 11:54 | Cardiology Consultation ---
Date of Consultation December 15, 2019 Assessment & Plan (1) Orthopnea: 69 yo M with PMH BPH, HLD, HTN, NSTEMI, CHF who presented to the ED for orthopnea x 3 days and was admitted to the hospital for workup and evaluation. 1) CHF with reduced EF - 2015 echo showed LVEF 50-55%. TTE this admission showing LVEF closer to 30% with global hypokinesis and moderate mitral regurgitation. - EKG showing left ventricular hypertrophy with widened QRS and prolonged QT. - possible coronary blockage causing decompensation of LVEF vs conduction abnormality. Will consider cath tomorrow vs. electrical study. - CXR showing mild pulmonary edema - I/Os and daily weights ordered - discussed at length with patient the importance of a low sodium diet in order to reduce retention of fluid and strain on heart. - diet ordered for today 2) HTN - continue home losartan 50 mg daily and Triamterene/HCTZ 37.5/25 daily. 3) Elevated troponin (downtrending) - 0.055 on admission, down to 0.051 on repeat. - unimpressive for PA (2) CHF (congestive heart failure): (3) Elevated troponin: (4) Hypertension: Supervising Physician Co-Signing Physician Notes Saw examined this patient at the bedside with Dr. Sellers and agree with the do cumentation noted above. Briefly, the patient has a several day history of orthopnea. Last night due to symptoms of severe breathing difficulty presented to the emergency room was felt to have an element of pulmonary edema. He was administered some diuretic with improvement in his breathing. It seems that prior to the past 3 days he has been feeling well. He claims to be an active individual who was able to cut wood and perform moderate activity without limiting dyspnea. He has not report any reduction in his exercise tolerance over the past year. He does appear to have a high sodium intake. However he is not changes sodium intake recently. He has no symptoms of exertional chest pain. He does have rare and fleeting episodes of chest discomfort and has been aware of some palpitations recently. He denies symptoms of dizziness, lightheadedness or syncope. No swelling in his lower extremities or peripheral edema of which he has been aware. He denies significant alcohol abuse. He has a cardiomyopathy of undetermined etiology. All he certainly in a demographic where ischemic heart disease needs to be considered, his lack of significant chest pain or angina with activity Radu me to believe he likely has a nonischemic etiology for his reduced LV function. No focal wall motion abnormalities on his echocardiogram either. No viral syndrome to suggest that ideology. No known tachy arrhythmias although he does have frequent PVCs which have been known to reduced LV function in certain individuals. No significant history of alcohol abuse. He continues to have an element of dyspnea and likely still has some pulmonary vascular congestion. I would Mr. additional dose of diuretic. We discussed options for evaluation of coronary disease and elected to undergo cardiac catheterization tomorrow. Will also measure left ventricular end- diastolic pressure which will guide diuresis. The absence of significant coronary disease or need for revascularization we will institute more intense medical therapy. We will stop his triamterene hydrochlorothiazide and initiate beta-blockade. Once euvolemic he likely would be a good candidate for changed from losartan to Entresto While his biomarkers are detectable for ischemia, I do not believe this represents an acute coronary syndrome. No recent history to suggest infarct in the recent past. His heparin will be discontinued. History of Present Illness Reason for Consultation: orthopnea Attending Physician: Viraj Vergara MD History of Present Illness 69 yo M with PMH HTN, HLD, NSTEMI, CHF who presented to the ED yesterday with acute orthopnea. Says in past 48 hours has been feeling acutely short of breath when laying flat that improves considerably when sitting up. Attests to periodic dull, achy chest pain in sternal region that does not radiate. Pain is not induced by exercise or follow any noticeable pattern. He is able to walk the dog, go up and down flights of stairs without shortness of breath or chest discomfort. He attests to having periodic palpitations that were significantly stronger and faster yesterday. He states that he has a history of an abnormal heart rhythm however I do not see anything in the chart regarding this, nor any blood thinners other than daily 81 mg ASA. Patient states that he does not follow a low sodium diet, with family members noting that he "loves salty foods". In ED he received a heparin bolus, ASA 325 and lasix 20 mg IV after CXR showed pulmonary edema. Allergies Allergy/AdvReac Type Severity Reaction Status Date / Time No Known Allergies Allergy Verified 12/15/19 01:48 Home Medications Home Medications Medication Instructions Recorded Confirmed Type trazodone 50 mg tablet 50 mg PO HS 09/25/19 12/15/19 History aspirin 81 mg PO DAILY 12/15/19 12/15/19 History atorvastatin 20 mg PO DAILY 12/15/19 12/15/19 History dexlansoprazole [Dexilant] 60 mg PO DAILY 12/15/19 12/15/19 History losartan 50 mg PO DAILY 12/15/19 12/15/19 History tamsulosin 0.4 mg PO DAILY 12/15/19 12/15/19 History triamterene-hydrochlorothiazid 1 tab PO DAILY 12/15/19 12/15/19 History Patient History Medical History Herniated nucleus pulposus, lumbar (Inactive) Hypertension Surgical History No pertinent past surgical history Social History Preferred Language: Fijian Communication Ability: Effective Car Top Bolter Required: No Beliefs That Will Affect Care: None Current Living Situation: Spouse Other Information That Helps Us Care for You: No Feels Safe at Home: Yes Safety Concerns: Feels Safe At This Time Smoking Status: Never smoker Do You Dip or Chew Tobacco: No ; Second Hand Exposure: No ; Hx Alcohol Use: Yes Alcohol type: other Hx Substance Use: No Review of Systems Constitutional: no fever and no chills Respiratory: + cough; no dyspnea, no dyspnea on exertion and no pain on inspiration Cardiovascular: + chest pain, + chest pain at rest, + orthopnea and + palpit ations; no chest pain with activity, no dyspnea on exertion and no lightheadedness Physical Exam Constitutional: cooperative; no acute distress and not ill appearing Neck: normal visual inspection Respiratory: normal respiratory effort and able to speak in complete sentences; no respiratory distress, no labored breathing, no retractions, no cough and no audible wheezes Auscultation: lungs clear to auscultation bilaterally; no crackles, no rales, no rhonchi and no wheezes Cardiovascular: Rate/Rhythm: regular rate and regular rhythm Heart Sounds: normal S1 and normal S2; no gallop, no murmur and no cardiac rub Vessels: posterior tibial pulses present Extremities: no pedal edema Results & Data Vital Signs (Past 12 Hours) Vital Signs Temp Pulse Pulse Resp BP BP Pulse Ox 12/15/19 11:20 36.6 C 99 H 20 131/88 93 12/15/19 07:35 36.7 C 91 H 18 117/82 96 12/15/19 05:11 36.1 C L 93 H 18 145/95 H 96 12/15/19 04:03 90 16 148/105 H 100 12/15/19 02:29 94 H 23 144/96 H 95 12/15/19 02:01 94 12/15/19 00:58 36.7 C 83 19 154/97 H 94 Cardiac Enzymes 12/15/19 12/15/19 Range/Units 01:39 08:56 AST 19 (15-37) U/L Troponin I 0.055 H* 0.051 H* (0-0.045) ng/ml Coagulation 12/15/19 12/15/19 Range/Units 01:39 08:56 PT 10.7 (9.0-12.0) Seconds APTT 26.6 122.1 H* (21.0-31.0) Seconds CBC 12/15/19 Range/Units 01:39 WBC 6.64 (4.8-10.8) K/uL RBC 4.62 L (4.7-6.1) M/uL Hgb 13.4 L (14.0-18.0) g/dL Hct 39.8 L (42-52) % Plt Count 168 (130-400) K/uL Neut # (Auto) 4.23 (1.4-6.5) K/uL Lymph # (Auto) 1.60 (1.2-3.4) K/uL [place] # (Auto) 0.61 H (0.11-0.59) K/uL Eos # (Auto) 0.18 (0-0.5) K/uL Baso # (Auto) 0.01 (0-0.2) K/uL Comprehensive Metabolic Panel 12/15/19 Range/Units 01:39 Sodium 143 (136-145) mmol/L Potassium 3.5 (3.5-5.1) mmol/L Chloride 111 H (98-107) mmol/L Carbon Dioxide 27 (21-32) mmol/L BUN 20 H (7-18) mg/dl Creatinine 1.09 (0.6-1.4) mg/dl Glucose 104 H (70-99) mg/dl Calcium 8.3 L (8.5-10.1) mg/dl AST 19 (15-37) U/L ALT 31 (12-78) U/L Alkaline Phosphatase 106 (45-117) U/L Total Protein 6.5 (6.4-8.2) gm/dl Albumin 3.3 L (3.4-5.0) gm/dl Intake and Output 12/14/19 12/15/19 12/15/19 22:59 06:59 14:59 Intake Total 108.733 / 108.733 80.267 / 80.267 Output Total 450 / 450 Balance -341.267 / -341.267 80.267 / 80.267 Intake: IV 108.733 / 108.733 80.267 / 80.267 HEPARIN SODIUM/DEXTROSE 25,000 108.733 / 108.733 80.267 / 80.267 units In 500 ml @ 1 UNITS/HR 0. 02 mls/hr IV .Q24H KEESHA Rx#: [id number] Output: Urine 450 / 450 Other: Weight 82.6 kg PG Care Time/CCT Total # of Minutes Spent Total Time Spent with Patient: Total time spent is greater than 50% in coordination of care (as documented) at patient's floor/unit and/or counseling patient: Coding Level of Care Code 09661 Initial Inpt Care Lvl 3 Diagnoses Orthopnea R06.01 CHF (congestive heart failure) I50.9 Heart failure chronicity: unspecified Heart failure type: unspecified Elevated troponin R79.89 Hypertension I10 Resident Activity Tracking Resident Involvement: Resident Care Provided Care Provided: Adult Hospital Medicine (1) CHF (congestive heart failure) Heart failure chronicity: unspecified Heart failure type: unspecified Qualified Code(s): I50.9 - Heart failure, unspecified
[2019-12-15] MEDS ORDERED: POTASSIUM CHLORIDE 20 MEQ TABCR PO ONE (17:00)
[2019-12-15] MEDS ORDERED: FUROSEMIDE 40 MG in SYRINGE 0 ML IV ONE (17:15)
[2019-12-15 17:33] LABS: Partial Thromboplastin Ratio 1.4; Partial Thromboplastin Time 39.2 Seconds (21.0-31.0)
--- NOTE | 2019-12-15 18:43 | Hospitalist Progress Note ---
Date of Service December 15, 2019 Assessment & Plan (1) Orthopnea: 69 yo M with PMH BPH, HLD, HTN, NSTEMI, CHF who presented to the ED for orthopnea x 3 days and was admitted to the hospital for workup and evaluation cardiology consulted and appreciating recs. 1) CHF with reduced EF - IV lasix 20 mg in the ED - CXR pulmonary congestion w/ mild pulmonary edema - 2015 echo showed LVEF 50-55%. TTE this admission showing LVEF closer to 30% with global hypokinesis and moderate mitral regurgitation. - EKG showing left ventricular hypertrophy with widened QRS and prolonged QT. - possible coronary blockage causing decompensation of LVEF vs conduction abnormality. Will consider cath tomorrow vs. electrical study. - I/Os and daily weights ordered 2) HTN - continue home losartan 50 mg daily and Triamterene/HCTZ 37.5/25 daily. 3) Elevated troponin (downtrending) - 0.055 on admission, down to 0.051 on repeat. - unimpressive for OR - heparin discontinued DVT: Heparin Code: full Dispo: Obs (2) CHF (congestive heart failure): (3) Elevated troponin: as above (4) Hypertension: - continue with home losartan 50mg qday - continue with home triamterene-HCTZ daily Supervising Physician Co-Signing Physician Notes I saw the patient and confirmed gentile portions of the history and exam. I agree with the impression and plan as noted above. Pleasant 69 y/o male who noted a cough about three weeks ago, and then more recently, about a three night history of classic orthopnea. Seat or upright, minimal symptoms and able to speak in full sentences. Supine, he becomes significantly short of breath. Some improvement with diuresis, although still symptomatic. He notes a history of "irregular beats." He reports having a Holter monitor at some point, and was told he did not have a-fib. Echo today shows marked reduction in his EF. The etiology of his cardiomyopathy is not clear. He could be ischemic; it could be viral, especially with his preceding cough. Alternatively, his cardiomyopathy could be longer standing than we think, perhaps experiencing symptoms secondary to cardiomyopathy in a 'rate-related failure.' His troponins did not rise - and no recent chest pain - so do not suspect acute ischemic event. Appreciate cardiology consultation. Tentative plan for cath tomorrow. Subjective Overall improving with less wheezing and no trouble breathing when he is sitting up but if he is to lay flat he feels that he can't get air. He also complains that he is having chronic irregular heart beats. Review of Systems Constitutional: no fever and no chills Respiratory: + cough (dry cough over the last few weeks); no sputum production admits shortness of breath when lying flat Cardiovascular: + palpitations; no chest pain Gastrointestinal: no nausea and no vomiting Genitourinary: no dysuria, no difficulty urinating and no urinary frequency Physical Exam Constitutional: WD/WN, vitals as above Eyes: PERRL, conjunctivae normal, anicteric sclerae ENMT: external ear and nose normal, oropharynx normal Neck: trachea midline, no thyromegaly Respiratory: normal respiratory effort, lungs clear to auscultation Cardiovascular: RRR, no murmur, no edema Extremities: no edema Gastrointestinal (Abdomen): normal bowel sounds, soft, nontender, no hepatosplenomegaly Skin: no rashes, warm and dry Results & Data Vital Signs (Past 12 Hours) Vital Signs Temp Pulse Pulse Resp BP Pulse Ox 12/15/19 15:33 36.6 C 90 21 112/67 95 12/15/19 15:00 93 H 12/15/19 11:20 36.6 C 99 H 20 131/88 93 12/15/19 07:35 36.7 C 91 H 18 117/82 96 Resident Activity Tracking Resident Involvement: Resident Care Provided Care Provided: Adult Hospital Medicine (1) CHF (congestive heart failure) Heart failure chronicity: unspecified Heart failure type: unspecified Qualified Code(s): I50.9 - Heart failure, unspecified
--- NOTE | 2019-12-15 19:58 | Electrocardiogram Report ---
Test Reason : Blood Pressure : / mmHG Vent. Rate : 099 BPM Atrial Rate : 099 BPM P-R Int : 166 ms QRS Dur : 118 ms QT Int : 358 ms P-R-T Axes : 059 -09 082 degrees QTc Int : 459 ms Sinus rhythm with frequent Premature ventricular complexes Possible Left atrial enlargement Nonspecific T wave abnormality Abnormal ECG When compared with ECG of 17-MAY-2015 15:31, Premature ventricular complexes are now Present Confirmed by Parag Del Cid ([id number]) on 12/15/2019 7:58:17 PM Referred By: REFERRED SELF Confirmed By:Bandar Del Cid
--- NOTE | 2019-12-15 20:00 | Electrocardiogram Report ---
Test Reason : Blood Pressure : / mmHG Vent. Rate : 090 BPM Atrial Rate : 090 BPM P-R Int : 176 ms QRS Dur : 118 ms QT Int : 400 ms P-R-T Axes : 055 -12 077 degrees QTc Int : 489 ms Sinus rhythm with marked sinus arrhythmia with frequent Premature ventricular complexes Left ventricular hypertrophy with QRS widening Nonspecific T wave abnormality Prolonged QT Abnormal ECG When compared with ECG of 15-DEC-2019 01:07, (unconfirmed) No significant change was found Confirmed by Parag Del Cid ([id number]) on 12/15/2019 8:00:24 PM Referred By: REFERRED SELF Confirmed By:Bandar Del Cid
[2019-12-15] MEDS ORDERED: TRAZODONE HCL 50 MG TAB PO SCH (21:00)
[2019-12-16 06:16] LABS: Basophils # (auto) 0.01 K/uL (0-0.2); Basophils % (auto) 0.1 %; Eosinophils # (auto) 0.13 K/uL (0-0.5); Eosinophils % (auto) 1.7 %; Hematocrit (blood only) 41.4 % (42-52); Hemoglobin 14.4 g/dL (14.0-18.0); Immature Granulocytes # (auto) 0.01 K/uL (0.00-0.02); Immature Granulocytes % (auto) 0.1 %; Lymphocytes # (auto) 1.49 K/uL (1.2-3.4); Lymphocytes % (auto) 19.5 %; Mean Corpuscular Hemoglobin 29.8 pg (25-34); Mean Corpuscular Hgb Conc 34.8 g/dL (32-36); Mean Corpuscular Volume 85.5 fL (80-100); Mean Platelet Volume 10.4 fL (7.4-10.4); Monocytes # (auto) 0.71 K/uL (0.11-0.59); Monocytes % (auto) 9.3 %; Neutrophils % (auto) 69.3 %; Platelet Count 166 K/uL (130-400); RDW Coefficient of Variation 13.3 % (11.5-14.5); RDW Standard Deviation 41.7 fL (36.4-46.3); Red Blood Count 4.84 M/uL (4.7-6.1); White Blood Count 7.65 K/uL (4.8-10.8)
[2019-12-16 06:29] LABS: Partial Thromboplastin Time 26.1 Seconds (21.0-31.0)
[2019-12-16 06:51] LABS: Albumin Level 3.3 gm/dl (3.4-5.0); BUN Creatinine Ratio 19.7 (10-20); Calcium 8.7 mg/dl (8.5-10.1); Creatinine Clr Calc Pharmacy 59.5 ml/min; Est GFR (African American) 68.5; Est GFR (Non-African American) 59.1; Potassium 3.6 mmol/L (3.5-5.1)
[2019-12-16 06:54] LABS: Albumin Globulin Ratio 0.9 (0.9-2); Bilirubin,Total 0.7 mg/dl (0.2-1); Globulin 3.5 gm/dl (2.5-4.0); Total Protein 6.8 gm/dl (6.4-8.2)
[2019-12-16] MEDS: PANTOprazole 40 MG TAB PO SCH (07:16)
[2019-12-16] MEDS: ATORVASTATIN 20 MG TAB PO SCH (07:16)
[2019-12-16] MEDS: TAMSULOSIN HCL 0.4 MG CAP PO SCH (07:17)
[2019-12-16] MEDS: LOSARTAN POTASSIUM 50 MG TAB PO SCH (07:17)
[2019-12-16] MEDS ORDERED: ASPIRIN 81 MG ECTAB PO SCH (09:00)
[2019-12-16] MEDS ORDERED: NiCARDipine HCL INJ 2.5 MG/ML 10 ML AMP ONE (10:29)
[2019-12-16] MEDS ORDERED: HEPARIN (PORCINE) 1000 UNIT/ML 10 ML (CATH LAB USE ONLY) ONE (10:29)
[2019-12-16] MEDS ORDERED: fentaNYL citrate 100 MCG/2 ML VIAL ONE (10:29)
[2019-12-16] MEDS ORDERED: MIDAZOLAM HCL 1 MG/ML 2ML VIAL ONE (10:30)
[2019-12-16] MEDS ORDERED: NITROGLYCERIN/D5W 100MCG/ML 20ML SYR ONE (10:30)
--- NOTE | 2019-12-16 11:14 | Pre Anesthesia Assessment ---
Date of Service December 16, 2019 Pre Sedation Assessment Vital Signs Temp Pulse Pulse Resp BP BP Pulse Ox 12/16/19 10:55 36.8 C 98 H 18 128/94 97 12/16/19 07:41 36.6 C 76 18 119/78 91 12/16/19 04:17 36.6 C 80 16 125/86 92 12/15/19 23:45 81 12/15/19 23:13 36.7 C 78 16 111/71 97 12/15/19 15:33 36.6 C 90 21 112/67 95 12/15/19 15:00 93 H 12/15/19 11:20 36.6 C 99 H 20 131/88 93 Cardiovascular RRR, no murmur, no edema Respiratory + respiratory effort normal Pre-Sedation Airway Assessment Smoking Status: Never smoker Hx Sleep Apnea: No Hx Difficult Intubation: No Short, Thick Neck: No Thyromental Distance: > or= 3.5 Finger Breadths Oral Cavity: + WNL Mallampati Class: III ASA: ASA2 NPO Status Date of Last Intake of Fluids: 12/16/19 Time of Last Intake of Fluids: 07:00 Date of Last Intake of Solid Food: 12/15/19 Time of Last Intake of Solid Foods: 18:00 Procedure Planning Contraindications for Sedation: none Current Medications Reviewed: Yes Notes The planned sedation has been discussed with the patient. Informed Consent was obtained. I have identified the patient, determined the appropriateness of sedation and have assessed the patient immediately prior to the procedure. All medicine(s) and interventions are by my order.
--- NOTE | 2019-12-16 11:57 | Cardiac Catheterization ---
[facility] Data: Dope Firer Cardiac Status Clinical evaluation leading to the procedure CAD Presenation: No Sxs, No angina Diagnostic Physicians Name: Parag Del Cid MD Closure Device Recommendations: Medical Therapy and/or Counseling Cardiac Cath Procedure Full Procedure Date December 16, 2019 Pre-Procedure Diagnosis Pre-Procedure Diagnosis: CHF and Cardiomyopathy AUC Score AUC Score: 7 Post-Procedure Diagnosis Post-Procedure Diagnosis: Mild CAD Procedure(s) Performed Procedure(s) Performed: Coronary Angiography and Left Heart Cath Staff Command And Control Officer Parag Del Cid MD Estimated Blood Loss Estimated Blood Loss: 5cc Medication(s) Medication(s): Fentanyl, Heparin, Lidocaine 1%, Nicardipine, Nitroglycerin and Versed Summary of Findings Procedure performed via right radial artery Equipment used: 5 [place] 4 Coronary angiography: Left main: Left main was normal in size and caliber and bifurcated normally into left anterior descending and left circumflex arteries. No significant disease in this vessel Left anterior descending: Left anterior descending was a normal sized transapical vessel with some luminal irregularities in its proximal portion prior to the takeoff of the first diagonal branch. There did appear to be approximately 50% stenosis at the origin of the first diagonal which was a medium sized vessel. There were several smaller diagonal branches more distally. There were no other discrete lesions in this vessel Left circumflex: Left circumflex was a nondominant vessel. It produced a very small first OM branch and a large second OM system. The ongoing AV groove vessel was large in caliber and produced some diminutive additional obtuse marginal branches. There were no discrete lesions in this vessel. Right coronary artery: The right coronary artery was a dominant vessel. It did have some luminal irregularities in 2 discrete stenosis. 1 stenosis in the mid vessel approximately 30%. An additional stenosis slightly more distally approximately 20%. Hemodynamics Rest Ao:: 85/56 mmHg Final Ao: 105/69 mmHg LV: 105/1 mmHg with left ventricular end-diastolic pressure of 10 mmHg Recommendations Recommendations: Medical Therapy and/or Counseling Radiation Exposure (mGy) q Contrast (mls) 25 cc Procedural Complication(s) None Disposition Dope Firer Holding/Recovery I attest to the content of the Intraoperative Record and any orders documented therein. Any exceptions are noted below. [employer] Card Cath Procedure Codes Cardiac Catheterization Procedure 1: Cardiovascular Cath Procedures: 38284 Coronaries and LHC (+/-LV) Moderate Sedation Procedure 1: Sedation/Anesthesia: 82505 Mod Sedation by the same physician;Init15 Min Child Age 5 & Up PG Care Time/CCT Total # of Minutes Spent Total Time Spent with Patient: Total time spent is greater than 50% in coordination of care (as documented) at patient's floor/unit and/or counseling patient:
--- NOTE | 2019-12-16 11:58 | Post Anesthesia Assessment ---
Date of Service December 16, 2019 Post Sedation Assessment Vital Signs Temp Pulse Pulse Resp BP BP Pulse Ox 12/16/19 10:55 36.8 C 98 H 18 128/94 97 12/16/19 07:41 36.6 C 76 18 119/78 91 12/16/19 04:17 36.6 C 80 16 125/86 92 12/15/19 23:45 81 12/15/19 23:13 36.7 C 78 16 111/71 97 12/15/19 15:33 36.6 C 90 21 112/67 95 12/15/19 15:00 93 H Recovery Score Activity: Moves 4 extremities Respiration: Deep Breath/Cough Circulation: +/-20% PreAnes Value Consciousness: Fully Awake Oxygen Saturation: > 92% On Room Air Discharge Sedation Level of Care: Fast Track Phase II Post Sedation Plan On clinical assessment, the patient appears to have tolerated the sedation without complications. Patient is recovering as anticipated. Patient will continue to be monitored by nursing and may be discharged when sedation discharge criteria are met per below protocol. Upon Completions of procedure up to 15 minutes continue every 5 minute vital signs and the P.A.R. score; then discharge to a Phase I or Fast Track to Phase II per the following guidelines: * Discharge Patient to appropriate Phase II area if PAR is 8 or greater or return to pre- procedure baseline. The post - procedure orders will be as directed. * If PAR score is less than 8 or not return to pre-procedure baseline then patient will follow Phase I monitoring till PAR is reached for Phase II. The Phase I may be done in procedure room or may call to secure a Phase I area. * If naloxone or flumazenil are used for reversal, hold in Phase I for continued monitoring from when last reversal dose was given for a minimum of 60 minutes or longer pending the nurse and/or physician discretion of patient condition before discharge to Phase II. Please call the Sedation Physician to re-evaluate and complete post-note for discharge to Phase II area. Do NOT discharge from procedure sedation or Phase 1 until post- sedation evaluation note is complete by procedure /sedation MD Sedation Discharge Instructions to be given to the patient at discharge to home.
--- NOTE | 2019-12-16 14:09 | Cardiology Progress Note ---
Date of Service December 16, 2019 Assessment & Plan (1) Nonischemic cardiomyopathy: Patient does not have coronary disease as the etiology of his reduced LV systolic function. The true etiology is unknown. It is possible this related to PVCs. I think we will need to initiate medical therapy with carvedilol and Entresto. I think a bit started on low-dose carvedilol 3.125 mg twice daily. I think his losartan can be switched to low-dose Entresto. We can monitor his heart rates, blood pressures and LV function over time. His LVEDP was normal today. I do not know if he requires a daily diuretic. I think if he keeps track of his weights and reduces the sodium in his diet we can simply monitor him and use as needed diuretics. I would intensify his atorvastatin to at least 40 mg daily. Continue daily aspirin. (2) Frequent PVCs: Hopefully with some gradual increase in beta-blockade we will see fewer PVCs. Unclear if this is an etiology or result of his cardiomyopathy. Subjective This afternoon patient generally feeling well. His breathing seems to be better and he is able to lie flat. No symptoms of chest pain. Occasional palpitations. Review of Systems Review of Systems: Per HPI Physical Exam Physical Exam: The patient is alert and oriented. Mood and affect appeared normal. He answered all questions appropriately. HEENT: Pupils are equal and reactive to light and accommodation. Extraocular movements are intact. The sclerae are anicteric. Neuro: Cranial nerves intact Lungs: Clear to auscultation bilaterally. He has good air movement without use of accessory muscles. No rales wheezes or rhonchi. Cardiac: Heart demonstrates a regular rate and rhythm. Normal S1 and S2. No murmurs on examination. Pulses: The patient has palpable radial pulses bilaterally that are equal in i ntensity Extremities: There was no evidence of hypoperfusion. There is no cyanosis or clubbing. There is no edema. Skin: I did not appreciate any rashes on examination today. Atrial fibrillation Results & Data Vital Signs (Past 12 Hours) Vital Signs Temp Pulse Pulse Resp BP BP Pulse Ox 12/16/19 13:12 75 18 122/79 94 12/16/19 13:00 81 18 112/78 96 12/16/19 12:42 88 18 125/89 95 12/16/19 12:30 94 H 12/16/19 12:27 36.4 C L 75 18 124/84 92 12/16/19 12:15 88 18 112/88 95 12/16/19 12:10 88 18 114/81 95 12/16/19 12:05 88 18 115/79 95 12/16/19 12:00 92 H 18 133/87 94 12/16/19 10:55 36.8 C 98 H 18 128/94 97 12/16/19 07:41 36.6 C 76 18 119/78 91 12/16/19 04:17 36.6 C 80 16 125/86 92 Laboratory Results Abnormal Lab Results 12/15/19 12/16/19 12/16/19 17:08 05:52 05:52 WBC 7.65 RBC 4.84 Hgb 14.4 Hct 41.4 L MCV 85.5 MCH 29.8 MCHC 34.8 RDW Std Deviation 41.7 RDW Coeff of Stefanie 13.3 Plt Count 166 MPV 10.4 Immature Gran % (Auto) 0.1 Neut % (Auto) 69.3 Lymph % (Auto) 19.5 [place] % (Auto) 9.3 Eos % (Auto) 1.7 Baso % (Auto) 0.1 Immature Gran # (Auto) 0.01 Neut # (Auto) 5.30 Lymph # (Auto) 1.49 [place] # (Auto) 0.71 H Eos # (Auto) 0.13 Baso # (Auto) 0.01 APTT 39.2 H 26.1 PTT Ratio 1.4 1.0 Sodium Potassium Chloride Carbon Dioxide Anion Gap BUN Creatinine Est Cr Clr Drug Dosing Est GFR ( Amer) Est GFR (Non-Af Amer) BUN/Creatinine Ratio Glucose Calcium Total Bilirubin AST ALT Alkaline Phosphatase Total Protein Albumin Globulin Albumin/Globulin Ratio 12/16/19 05:52 WBC RBC Hgb Hct MCV MCH MCHC RDW Std Deviation RDW Coeff of Stefanie Plt Count MPV Immature Gran % (Auto) Neut % (Auto) Lymph % (Auto) [place] % (Auto) Eos % (Auto) Baso % (Auto) Immature Gran # (Auto) Neut # (Auto) Lymph # (Auto) [place] # (Auto) Eos # (Auto) Baso # (Auto) APTT PTT Ratio Sodium 141 Potassium 3.6 Chloride 109 H Carbon Dioxide 26 Anion Gap 6.0 BUN 24 H Creatinine 1.23 Est Cr Clr Drug Dosing 59.5 Est GFR ( Amer) 68.5 Est GFR (Non-Af Amer) 59.1 BUN/Creatinine Ratio 19.7 Glucose 101 H Calcium 8.7 Total Bilirubin 0.7 AST 17 ALT 31 Alkaline Phosphatase 117 Total Protein 6.8 Albumin 3.3 L Globulin 3.5 Albumin/Globulin Ratio 0.9 Diagnostic Findings Coronary angiography performed today revealed the absence of significant obstructive coronary disease. Normal left ventricular filling pressures. ECG Additional Comments: Telemetry revealed normal sinus rhythm with frequent PVCs. PG Care Time/CCT Total # of Minutes Spent Total Time Spent with Patient: Total time spent is greater than 50% in coordination of care (as documented) at patient's floor/unit and/or counseling patient: Coding Level of Care Code 18465 Subseq Hosp Care Lvl 3 Diagnoses Nonischemic cardiomyopathy I42.8 Frequent PVCs I49.3
--- NOTE | 2019-12-16 19:59 | Discharge Summary ---
Date of Service December 16, 2019 Admission HPI Per Admitting Provider Brando Arnold is a 69 y/o male with past medical history of HTN, BPH, HLD, GERD, Insomnia who presents with CC of Orthopnea. He notes for the past 3 days, he has been unable to lay supine without awakening short of breath. He notes that he has had a chronic cough for the past 3 weeks with productive clear sputum. He denies any chest pain or shortness of breath at rest while sitting up or with exertion. He denies any previous NH, CAD or heart disease. He notes several years ago he had an exercise cardiac stress test which was negative. He denies any nausea, vomiting, diaphoresis. He was given Lasix in the ED and notes feeling improved. He also had a slightly elevated trop at 0.055. He notes he did get the influenza vaccine and hasn't had any recent cold like symptoms. He denies any lower extremity edema or abdominal distention or weight gain. He notes he was a former smoker in his 20's without significant smoking history. Admission Exam Per Admitting Provider Constitutional: WD/WN, vitals as above comfortable and + combative; not ill appearing Eyes: PERRL, conjunctivae normal, anicteric sclerae ENMT: external ear and nose normal, oropharynx normal Neck: normal visual inspection and trachea midline Respiratory: normal respiratory effort; no respiratory distress and does not use accessory muscles Auscultation: + wheezes (mild posterior left lung base) Cardiovascular: Rate/Rhythm: regular rate and regular rhythm (w/occasional PVCs) Extremities: no edema Gastrointestinal (Abdomen): Inspection/Auscultation: normal bowel sounds; abdomen not distended Percussion/Palpation: abdomen soft; abdomen nontender, no guarding and abdomen not rigid Musculoskeletal: Head/Neck/Chest: normocephalic and head atraumatic Skin: no rashes, warm and dry Neurologic: moves all extremities and awake Psychiatric: A+Ox3, euthymic affect Principal Diagnosis CHF w/ reduced EF HTN HLD Discharge Exam Constitutional: well developed well nourished HEENT: PERRL, conjunctiva normal, anicteric sclera, external ear and nose normal, trachea midline Respiratory: normal respiratory effort, lungs are clear to auscultation Cardiovascular: RRR, no m/r/g, no edema GI: normal bowel sounds, soft, nTTP, no hepatosplenomegaly Skin: no rashes, w/d/i Discharge Data Allergies Allergy/AdvReac Type Severity Reaction Status Date / Time No Known Allergies Allergy Verified 12/15/19 01:48 Consultations 12/15/19 03:42 ED Decision to Admit Stat 12/15/19 09:55 Consult Cardiology Routine Procedures Performed Operation Date: 12/16/19 11:00 Actual Procedures p Cath, Left with Cors and Vent - Jaguar Del Cid MD s Cineradiography w/Routine Exam - Jaguar Del Cid MD Ordered Studies 12/16/19 09:34 CL Cath Imgs for PACS use only Routine Hospital Course (1) Orthopnea: 69 yo M with PMH BPH, HLD, HTN, NSTEMI, CHF who presented to the ED for orthopnea x 3 days and was admitted to the hospital for workup and evaluation with cardiology. CHF with reduced EF - given IV lasix 20 mg in the ED - CXR pulmonary congestion w/ mild pulmonary edema - 2015 echo showed LVEF 50-55%. TTE this admission showing LVEF closer to 30% with global hypokinesis and moderate mitral regurgitation. - EKG showing left ventricular hypertrophy with widened QRS and prolonged QT. - cardiac cath showed 50% stenosis at the origin of the first diagonal. and 30% stenosis of mid RCA as well as 20% stenosis of distal RCA. Overall mild CAD with no intervention indicated at this time. Patient does not have coronary disease as the etiology of his reduced LV systolic function. The true etiology is unknown. It is possible this related to PVCs. - started on low-dose carvedilol 3.125 mg twice daily - Losartan switched to low-dose Entresto. - We can monitor his heart rates, blood pressures and LV function over time. - His LVEDP was normal today. - unclear if he requires a daily diuretic. - keeps track of his weights and reduces the sodium in his diet we can simply monitor him and use as needed diuretics. - Intensified atorvastatin to 40 mg daily - continue daily aspirin. Frequent PVCs Hopefully with some gradual increase in beta-blockade we will see fewer PVCs. Unclear if this is an etiology or result of his cardiomyopathy. HTN - switch HTN medications as above Elevated troponin (downtrending) - 0.055 on admission, down to 0.051 on repeat. - unimpressive for NH per cardiology (2) CHF (congestive heart failure): (3) Elevated troponin: as above (4) Hypertension: - continue as above Total Time Total Time Spent Total Time Spent (In Minutes): Discharge Plan Discharge Items Patient Disposition: Home - Self-Care Reason For Visit: DYSPNEA Discharge Diagnosis: CHF w/ reduced EF HTN Activity: Per Instructions section Non-emergency contact: Primary Care Provider and Principal Military Analyst Call non-emergency contact if: your symptoms worsen Follow-up/Referrals: Kieran Callejas MD [Primary Care Provider] - Diet: Regular Addtl Attending Provider Instructions: You were admitted for trouble breathing when he was laying flat. You had improvement after receiving Lasix which helped to reduce the amount of fluid in your lungs. You had a Echo or ultrasound of your heart that showed that your heart's function was decreased from the last Echo that was done in 2016. You had a catheterization of your heart and that showed that you had mild coronary artery disease with nothing that required intervention. In order to help with your hearts function we will stop taking Losartan and Triamterene-HCTZ. You will start you on Carvedilol, Entresto, and increase your Atorvastatin. Some patients have trouble with getting Entresto authorized and if this is the case you can restart the Losartan and Triamterin-HCTZ that you were previously on. You will weigh yourself every day and we will follow up with Dr. Del Cid the mud car worker. Pending Studies at Discharge: No Stand-Alone Forms: My [facility], Smoking Cessation Medications and DC Order Prescriptions: New carvedilol 3.125 mg tablet 3.125 mg PO BID Qty: 60 RF: 0 Entresto 24-26 mg tablet 1 tab PO BID Qty: 60 RF: 0 atorvastatin 40 mg tablet 40 mg PO DAILY Qty: 30 RF: 0 Continued trazodone 50 mg tablet 50 mg PO HS RF: 0 aspirin 81 mg Tablet,Delayed Release (Dr/Ec) 81 mg PO DAILY RF: 0 tamsulosin 0.4 mg Capsule 0.4 mg PO DAILY RF: 0 Dexilant 60 mg capsule,biphase delayed releas 60 mg PO DAILY RF: 0 Discontinued losartan 50 mg tablet 50 mg PO DAILY RF: 0 atorvastatin 20 mg tablet 20 mg PO DAILY RF: 0 triamterene-hydrochlorothiazid 37.5-25 mg Tablet 1 tab PO DAILY RF: 0 Discharge Orders: Discharge Order (Routine); Ordered 12/16/19 Ordered By: Fletcher Cobian/Other Patient Handouts: Cath Cardiac Dc Admission Data Admit Date/Time: 12/15/19 03:58 Attending Provider: Kishore Zhao Admit Provider: Son Burk Primary Care Provider: Kieran Callejas Other Providers: Viraj Vergara ; Jaguar Del Cid Other Interventions: Discharge Summary Assessment (RN) Last Done: 12/16/19 17:17 DC Date/Time DO NOT enter until pt leaves facility: 12/16/19 18:20 Supervising Physician Co-Signing Physician Notes I saw the patient and confirmed gentile portions of the history and exam. I agree with the impression and plan as noted above. I also discussed the patient with cardiology. He feels well today. No dyspnea nor orthopnea. Cardiac cath showed mild disease. The etiology of his cardiomyopathy is not clear; viral or secondary to PVC burden. He seems euvolemic today, so hold addition Lasix. Stop ARB and thiazide in favor of Entresto. Start Coreg 3.125 mg BID Increase atorvastatin to 40 mg. Cardiology follow up. Resident Activity Tracking Resident Involvement: Resident Care Provided Care Provided: Adult Hospital Medicine
== END 2019-12-16 18:20 | disposition home or self-care (01) ==
LOC: ED 00:56 → 2W 00:56 → SUATTDRO 03:58 → 2W 04:18 → 2S 12-16 12:36

== ENCOUNTER 2022-07-29 19:12 | Inpatient (IN) ==
[2022-07-29] MEDS ORDERED: MIDAZOLAM HCL 1 MG/ML 2ML VIAL ONE (19:27)
[2022-07-29] MEDS ORDERED: fentaNYL citrate 100 MCG/2 ML VIAL ONE (19:27)
[2022-07-29] MEDS ORDERED: DEXTROSE 50% 50 ML SYRINGE IV ONE ×2 (19:32)
[2022-07-29] MEDS ORDERED: POTASSIUM CHLORIDE 10 MEQ / 100ML WTR IV ONE (19:38)
[2022-07-29] MEDS ORDERED: MAGNESIUM SULFATE 1GM / D5W BAG IV ONE (19:38)
[2022-07-29] MEDS ORDERED: MAGNESIUM SULFATE / D5W 1 GM/100 ML BAG IV STA (19:39)
[2022-07-29] MEDS ORDERED: POTASSIUM CHLORIDE CRTAB 20 MEQ TABCR PO STA (19:39)
[2022-07-29] MEDS ORDERED: POTASSIUM CHLORIDE / WTR 10 MEQ/100 ML PLCT IV SCH (19:45)
--- NOTE | 2022-07-29 19:49 | Emergency Department Note ---
History of Present Illness General Chief complaint: Cardiac Assessment Source: patient and EMS Mode of arrival: EMS Limitations: no limitations History of Present Illness Provider complaint: Chest pain, palpitations This is a 71-year-old male presents emergency department with complaint of chest pain. EMS was contacted as patient does have a prior history of chest pain and was diagnosed with atrial fibrillation approximately 1 month ago. EMS initially reported heart rate was in the 220s, however patient did have a systolic blood pressure of 109 at that time. IV was established, and they called for medical c ommand. Patient's blood pressure then dropped, and EMS gave IV fluids and withheld Cardizem or other medications due to hypotension. Patient was still awake and talking, alert and oriented. On arrival here patient able to give history. States with prior episode his atrial fibrillation was found to be due to low potassium. Patient states he also has a history of recurrent low blood sugar. 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 Patient states he does take potassium and magnesium supplementation daily. He states he is not changed or missed any of his medications. Pt seen during a time of high acuity and national emergency pandemic while wearing PPE. Home Medications Medication Instructions Recorded Confirmed Type diphenhydramine 25 1 tab PO HS 04/20/21 07/29/22 History mg-acetaminophen 500 mg tablet (Tylenol PM Extra Strength) hyoscyamine sulfate 0.125 mg tablet 0.125 mg PO HS PRN abdominal pain 05/05/21 07/29/22 Rx #90 tabs tamsulosin 0.4 mg capsule 0.4 mg PO HS 08/29/21 07/29/22 History pantoprazole 40 mg tablet,delayed 40 mg PO BID #180 tabs 10/18/21 07/29/22 Rx release atorvastatin 40 mg tablet 40 mg PO QAM #90 tabs 01/16/22 07/29/22 Rx carvedilol 25 mg tablet 25 mg PO BID #180 tabs 04/14/22 07/29/22 Rx sacubitril 97 mg-valsartan 103 mg 1 tab PO BID #180 tabs 04/14/22 07/29/22 Rx tablet (Entresto) amlodipine 5 mg tablet 5 mg PO HS 05/17/22 07/29/22 History finasteride 5 mg tablet 5 mg PO QAM 05/17/22 07/29/22 History mirabegron 50 mg tablet,extended 50 mg PO QAM 05/17/22 07/29/22 History release 24 hr (Myrbetriq) oxybutynin chloride 5 mg 5 mg PO QAM 05/17/22 07/29/22 History tablet,extended release 24 hr apixaban 5 mg tablet 5 mg PO BID #60 tabs 07/03/22 07/29/22 Rx magnesium 200 mg tablet 200 mg PO DAILY 07/17/22 07/29/22 History mirtazapine 7.5 mg tablet 7.5 mg PO DAILY #90 tabs 07/25/22 07/29/22 Rx potassium 99 mg tablet 99 mg PO BID 07/29/22 07/29/22 History Allergies Allergy/AdvReac Type Severity Reaction Status Date / Time No Known Allergies Allergy Verified 07/17/22 15:46 Past Med/Surg History Medical History (Updated 07/30/22 @ 16:38 by Allison Chaves MD) Barretts esophagus BPH with obstruction/lower urinary tract symptoms Congestive heart failure Diverticular disease GERD (gastroesophageal reflux disease) Herniated nucleus pulposus, lumbar Hiatal hernia History of COVID-19 12/2021 - congestion - home test and public testing - no hospitalization - resolved Hyperlipidemia Hypertension Myocardial Infarction 11/2019--had heart cath @ [facility]--per pt reason for AR was CHF?--follows Dr. Del Cid Osteoarthritis PVC's (premature ventricular contractions) SVT (supraventricular tachycardia) Syncope Surgical History History of cardiac cath 11/2019 @ [facility]--no stents placed History of colonoscopy (04/25/21) History of esophagogastroduodenoscopy (EGD) (08/02/20) History of hernia repair at age 11 History of prostate biopsy benign History of removal of cyst off lumbar back History of right cataract surgery History of surgical procedure on mouth dental implants History of tooth extraction Family History Other No family history of adverse response to anesthesia Denies family history of Ovarian cancer Prostate cancer Breast cancer Lung cancer Colorectal cancer Social History Smoking Status: Never smoker Tobacco Type: Cigarettes Second Hand Exposure: No; Do You Dip or Chew Tobacco: No; Tobacco Cessation Education Requested by Patient: No Hx Alcohol Use: No Hx Substance Use: No Preferred Language: Cymraes Communication Ability: Effective Dye House Helper Required: No Beliefs That Will Affect Care: None marital status: Current Living Situation: Spouse current occupational status: retired 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 All systems reviewed & are unremarkable except as noted in HPI & below Physical Exam Vital Signs Vital Signs - 24 hr 07/29/22 19:58 07/29/22 19:18 07/29/22 19:28 Temperature Temperature Source Pulse Rate 231 H 230 H Respiratory Rate 29 H 28 H Blood Pressure 71/52 L 100/47 L Blood Pressure Mean 58 64 Pulse Oximetry 98 99 96 Oxygen Delivery Method Room Air Non-rebreather Non-rebreather Non-rebreather Oxygen Flow Rate 15 15 15 Sepsis Recent Fever Within 48 Hours Sepsis New/Unexplained Change in Mental Status Sepsis Action Taken by Nursing Oxygen Flow Rate - Titration 2 Pulse Oximetry Post Tiitration 94 07/29/22 19:35 07/29/22 19:40 07/29/22 20:00 Temperature Temperature Source Pulse Rate 61 52 L 52 L Respiratory Rate 26 H 16 18 Blood Pressure 92/57 L 84/56 L 85/63 L Blood Pressure Mean 68 65 70 Pulse Oximetry 98 95 93 Oxygen Delivery Method Non-rebreather Non-rebreather Nasal Cannula Oxygen Flow Rate 15 15 3 Sepsis Recent Fever Within 48 Hours Sepsis New/Unexplained Change in Mental Status Sepsis Action Taken by Nursing Oxygen Flow Rate - Titration Pulse Oximetry Post Tiitration 07/29/22 19:15 07/29/22 20:09 07/29/22 20:21 Temperature 36.5 C Temperature Source Oral Pulse Rate 57 L 55 L Respiratory Rate 22 20 Blood Pressure 94/69 L 93/59 L Blood Pressure Mean 77 70 Pulse Oximetry 92 93 Oxygen Delivery Method Nasal Cannula Nasal Cannula Oxygen Flow Rate 3 3 Sepsis Recent Fever Within 48 Hours No Sepsis New/Unexplained Change in Mental Status N/A Sepsis Action Taken by Nursing No Action Required Oxygen Flow Rate - Titration Pulse Oximetry Post Tiitration 07/29/22 20:31 07/29/22 20:46 07/29/22 21:14 Temperature Temperature Source Pulse Rate 56 L 54 L 55 L Respiratory Rate 20 22 24 Blood Pressure 87/55 L 99/75 L 123/72 Blood Pressure Mean 65 83 89 Pulse Oximetry 93 96 96 Oxygen Delivery Method Nasal Cannula Nasal Cannula Nasal Cannula Oxygen Flow Rate 3 3 3 Sepsis Recent Fever Within 48 Hours Sepsis New/Unexplained Change in Mental Status Sepsis Action Taken by Nursing Oxygen Flow Rate - Titration Pulse Oximetry Post Tiitration 07/29/22 21:30 07/29/22 22:00 07/29/22 22:01 Temperature Temperature Source Pulse Rate 52 L 55 L 53 L Respiratory Rate 20 15 18 Blood Pressure 101/69 100/66 102/70 Blood Pressure Mean 79 77 80 Pulse Oximetry 96 93 95 Oxygen Delivery Method Nasal Cannula Nasal Cannula Nasal Cannula Oxygen Flow Rate 2 2 2 Sepsis Recent Fever Within 48 Hours Sepsis New/Unexplained Change in Mental Status Sepsis Action Taken by Nursing Oxygen Flow Rate - Titration Pulse Oximetry Post Tiitration 07/29/22 22:15 Temperature Temperature Source Pulse Rate 62 Respiratory Rate 20 Blood Pressure 107/74 Blood Pressure Mean 85 Pulse Oximetry 94 Oxygen Delivery Method Nasal Cannula Oxygen Flow Rate 2 Sepsis Recent Fever Within 48 Hours Sepsis New/Unexplained Change in Mental Status Sepsis Action Taken by Nursing Oxygen Flow Rate - Titration Pulse Oximetry Post Tiitration GENERAL: alert, unwell appearing, well nourished, no distress, non-toxic EYE EXAM: normal conjunctiva, PERRL and EOM's grossly intact OROPHARYNX: no exudate, no erythema, lips, buccal mucosa, and tongue normal and mucous membranes are moist NECK: supple, no nuchal rigidity, no adenopathy, non-tender LUNGS: Clear to auscultation. Normal chest wall mechanics, no w/r/r HEART: no murmurs, S1 normal and S2 normal, tachycardic at 223 ABDOMEN: abdomen soft, non-tender, normo-active bowel sounds, no masses, no rebound or guarding. BACK: Back is symmetrical on inspection and there is no deformity, no midline tenderness, no CVA tenderness. SKIN: no rashes and no bruising UPPER EXTREMITIES: upper extremities are grossly normal. FROM. LOWER EXTREMITIES: No pitting edema. FROM. NEURO EXAM: Normal sensorium, cranial nerves II-XII grossly intact, normal speech, no gross weakness of arms, no gross weakness of legs. Gross sensation intact. Procedures Free Text Procedures Indication: Dysrhythmia, unstable Written consent was obtained after the risks and benefits were explained, including but not limited to pain, thermal burn, allergic reaction, aspiration, airway obstruction, laryngospasm, infection, hypotension, and cardiorespiratory arrest. At this time, the risks of the procedure are less than the risks of NOT performing the procedure. A time out was taken and the correct patient and procedure identified. The patient was on 100% via NC prior to the procedure. Suction, airway equipment, medications, respiratory equipment, ACLS cart, and appropriate personnel were prepared prior to the initiation of the procedure. Sedation was achieved utilizing versed and fentanyl. The biphasic defibrillator was set to 200 joules of energy and synched. After confirmation of sedation and "all clear" safety check the synchronized shock was delivered. This resulted in successful conversion of the dysrhythmia back into sinus rhythm. See nursing notes for dosages and times. There were no complications and the patient recovered uneventfully from the procedure. Course Administered Medications Apixaban (Apixaban 5 Mg Tablet) 5 mg PO BID [facility] Stop: 08/28/22 23:19 Last Admin: 07/30/22 20:14 Dose: 5 mg Documented By: Admin: 07/30/22 08:43 Dose: 5 mg Documented By: Admin: 07/29/22 23:36 Dose: 5 mg Documented By: THELMA Atorvastatin Calcium (Atorvastatin 40 Mg Tab) 40 mg PO QAM KEESHA Stop: 08/29/22 08:59 Last Admin: 07/30/22 08:43 Dose: 40 mg Documented By: Carvedilol (Carvedilol 25 Mg Tab) 25 mg PO BID KEESHA Stop: 08/28/22 23:19 Last Admin: 07/30/22 20:15 Dose: 25 mg Documented By: Admin: 07/30/22 08:41 Dose: 25 mg Documented By: Admin: 07/29/22 23:33 Dose: 25 mg Documented By: THELMA Finasteride (Finasteride 5 Mg Tab) 5 mg PO QAM KEESHA Stop: 08/29/22 08:59 Last Admin: 07/30/22 08:41 Dose: 5 mg Documented By: Flecainide Acetate (Flecainide Acetate 100 Mg Tablet) 50 mg PO Q12 KEESHA Stop: 08/29/22 11:49 Last Admin: 07/30/22 20:16 Dose: 50 mg Documented By: Admin: 07/30/22 12:28 Dose: 50 mg Documented By: Mirtazapine (Mirtazapine Tab 15 Mg Tab) 7.5 mg PO HS KEESHA Stop: 08/28/22 23:19 Last Admin: 07/30/22 20:17 Dose: 7.5 mg Documented By: Y Admin: 07/29/22 23:33 Dose: 7.5 mg Documented By: CF Oxybutynin Chloride (Oxybutynin Chloride Xl 5 Mg Tabcr) 5 mg PO QAM KEESHA Stop: 08/29/22 08:59 Last Admin: 07/30/22 08:41 Dose: 5 mg Documented By: Pantoprazole Sodium (Pantoprazole 40 Mg Tab) 40 mg PO BID KEESHA Stop: 08/28/22 23:19 Last Admin: 07/30/22 20:19 Dose: 40 mg Documented By: Admin: 07/30/22 08:41 Dose: 40 mg Documented By: Admin: 07/29/22 23:34 Dose: 40 mg Documented By: THELMA Sacubitril/Valsartan (Valsartan/Sacubitril 103/97mg Tab) 1 tab PO BID KEESHA Stop: 08/28/22 23:19 Last Admin: 07/30/22 20:21 Dose: 1 tab Documented By: Admin: 07/30/22 08:41 Dose: 1 tab Documented By: Admin: 07/29/22 23:35 Dose: 1 tab Documented By: THELMA Tamsulosin HCl (Tamsulosin Hcl 0.4 Mg Cap) 0.4 mg PO HS KEESHA Stop: 08/28/22 23:19 Last Admin: 07/30/22 20:20 Dose: 0.4 mg Documented By: Admin: 07/29/22 23:34 Dose: 0.4 mg Documented By: THELMA Discontinued Medications Dextrose (Dextrose 50% 50 Ml Syringe) Confirm Administered Dose 50 ml IV .STK- MED ONE Stop: 07/29/22 19:33 Last Admin: 07/29/22 19:32 Dose: 50 ml Documented By: LATANYA Dextrose (Dextrose 50% 50 Ml Syringe) Confirm Administered Dose 50 ml IV .STK- MED ONE Stop: 07/29/22 19:33 Last Admin: 07/29/22 19:58 Dose: Not Given Documented By: LATANYA Fentanyl Citrate (Fentanyl Citrate 100 Mcg/2 Ml Vial) Confirm Administered Dose 100 mcg .ROUTE .STK-MED ONE Stop: 07/29/22 19:28 Last Increment: 07/29/22 19:30 Dose: 50 mcg Documented By: LATANYA Potassium Chloride (K Primo / Wtr) 10 meq in 100 mls @ 100 mls/hr IV Q1H KEESHA; Protocol Stop: 07/29/22 21:44 Last Admin: 07/29/22 19:57 Dose: Not Given Documented By: LATANYA Magnesium Sulfate/Dextrose (Magnesium Sulfate / D5w) 1 gm in 100 mls @ 100 mls/hr IV NOW STA Stop: 07/29/22 20:38 Last Infusion: 07/29/22 22:25 Dose: 0 mls/hr Documented By: Admin: 07/29/22 21:25 Dose: 100 mls/hr Documented By: LATANYA Sodium Chloride (Nss 1000ml) 1,000 mls @ 999 mls/hr IV .Q1H1M ONE Stop: 07/29/22 21:35 Last Infusion: 07/29/22 20:36 Dose: 0 mls/hr Documented By: Admin: 07/29/22 19:36 Dose: 999 mls/hr Documented By: LATANYA Sodium Chloride (Nss 1000ml) 1,000 mls @ 125 mls/hr IV .Q8H KEESHA Stop: 08/28/22 21:14 Last Infusion: 07/29/22 22:58 Dose: 0 mls/hr Documented By: Admin: 07/29/22 21:25 Dose: 125 mls/hr Documented By: LATANYA Calcium Gluconate 1,000 mg/ (Dextrose) 60 mls @ 240 mls/hr IV NOW ONE Stop: 07/29/22 23:24 Last Infusion: 07/30/22 00:07 Dose: 0 mls/hr Documented By: Admin: 07/29/22 23:32 Dose: 240 mls/hr Documented By: THELMA Ioversol (Optiray 300 500ml) 97 ml IV ONCE ONE Stop: 07/29/22 21:02 Last Admin: 07/29/22 21:01 Dose: 97 ml Documented By: JEREMIE Magnesium Sulfate/Dextrose (Magnesium Sulfate 1gm / D5w Bag) Confirm Administered Dose 2 gm IV .STK-MED ONE Stop: 07/29/22 19:39 Last Admin: 07/29/22 20:25 Dose: Not Given Documented By: LATANYA Midazolam HCl (Midazolam Hcl 1 Mg/Ml 2ml Vial) Confirm Administered Dose 2 mg .ROUTE .STK-MED ONE Stop: 07/29/22 19:28 Last Increment: 07/29/22 19:30 Dose: 1 mg Documented By: LATANYA Potassium Chloride (Potassium Chloride 10 Meq / 100ml Wtr) Confirm Administered Dose 20 meq IV .STK-MED ONE Stop: 07/29/22 19:39 Last Admin: 07/29/22 19:57 Dose: Not Given Documented By: LATANYA Potassium Chloride (Potassium Chloride Crtab 20 Meq Tabcr) 40 meq PO NOW STA Stop: 07/29/22 19:40 Last Admin: 07/29/22 19:57 Dose: Not Given Documented By: LATANYA Potassium Chloride (Potassium Chloride Crtab 20 Meq Tabcr) 40 meq PO NOW STA Stop: 07/30/22 11:06 Last Admin: 07/30/22 12:28 Dose: 40 meq Documented By: Critical Care Time Critical Care Time: Yes Total Critical Care Time: 62 Critical care of 62 min performed to assess and manage high likelihood of life-threatening unstable dysrhythmia, involving labs and imaging performed with assessment to evaluate unstable diagnosis with frequent reassessment. This time includes bedside time, treatment discussions with patient/family/consultants, documentation time and excludes procedure time. Medical Decision Making Differential Diagnosis Differential diagnosis includes etiologies such as premature contractions, electrolyte abnormality, cardiac dysrhythmia, thyroid dysfunction, pulmonary embolism, infection, gastrointestinal, as well as others were entertained. Medical Records Attestation: I reviewed the patient's medical records. Home Medications Current Medication List: was personally reviewed by me Laboratory Data Attestation: I reviewed the patient's lab results. Result diagrams: 07/30/22 05:44 07/30/22 05:44 Lab Results 07/29/22 07/29/22 07/29/22 Range/Units 19:27 19:27 19:27 WBC Cancelled RBC Cancelled Hgb Cancelled POC Hgb (14.0-18.0) g/dl Hct Cancelled POC Hct (42-52) % MCV Cancelled MCH Cancelled MCHC Cancelled RDW Std Deviation Cancelled RDW Coeff of Stefanie Cancelled Plt Count Cancelled MPV Cancelled Immature Gran % (Auto) Cancelled Neut % (Auto) Cancelled Lymph % (Auto) Cancelled [place] % (Auto) Cancelled Eos % (Auto) Cancelled Baso % (Auto) Cancelled Neut # (Auto) Cancelled Lymph # (Auto) Cancelled [place] # (Auto) Cancelled Eos # (Auto) Cancelled Baso # (Auto) Cancelled Immature Gran # (Auto) Cancelled Absolute Nucleated RBC Cancelled Nucleated RBC % (auto) Cancelled Neutrophils % (Manual) Cancelled Band Neutrophils % Cancelled Lymphocytes % (Manual) Cancelled Prolymphocyte % Cancelled Reactive Lymphs % (Man) Cancelled Monocytes % (Manual) Cancelled Eosinophils % (Manual) Cancelled Basophils % (Manual) Cancelled Metamyelocytes % (Man) Cancelled Myelocytes % (Man) Cancelled Promyelocytes % (Man) Cancelled Blast Cells % (Manual) Cancelled Plasma Cell % (Manual) Cancelled Other Cells % Cancelled Nucleated RBC % Cancelled Neutrophils # (Manual) Cancelled Band Neutrophils # Cancelled Total Absolute Neuts Cancelled Lymphocytes # (Manual) Cancelled Prolymphocyte # Cancelled Reactive Lymphs # Cancelled Total Abs Lymphocytes Cancelled Monocytes # (Manual) Cancelled Eosinophils # (Manual) Cancelled Basophils # (Manual) Cancelled Metamyelocytes # (Man) Cancelled Myelocytes # (Manual) Cancelled Promyelocytes # (Man) Cancelled Blast Cells # (Man) Cancelled Plasma Cell # (Manual) Cancelled Other Cells # Cancelled Nucleated RBCs # (Man) Cancelled Hypersegmented Neuts Cancelled Hyposegmented Neuts Cancelled Hypogranular Neuts Cancelled Large Granular Lymphs Cancelled # Lrg Granular Lymphs Cancelled Hairy Cells Cancelled Smudge Cells Cancelled Toxic Granulation Cancelled Toxic Vacuolation Cancelled Dohle Bodies Cancelled Promise Rods Cancelled Platelet Estimate Cancelled Hypogranular Platelets Cancelled Clumped Platelets Cancelled Giant Platelets Cancelled Platelet Satelliting Cancelled RBC Morphology Cancelled Polychromasia Cancelled Hypochromasia Cancelled Poikilocytosis Cancelled Basophilic Stippling Cancelled Anisocytosis Cancelled Microcytosis Cancelled Macrocytosis Cancelled Spherocytes Cancelled Pappenheimer Bodies Cancelled Sickle Cells Cancelled Target Cells Cancelled Tear Drop Cells Cancelled Ovalocytes Cancelled Stomatocytes Cancelled Marcelino-Fontanet Bodies Cancelled Echinocytes Cancelled Acanthocytes (Spur) Cancelled Rouleaux Cancelled RBC Agglutinates Cancelled Schistocytes Cancelled Sezary Cell Cancelled POC Sodium (135-144) mmol/L Sodium Cancelled POC Potassium (3.3-5.0) mmol/L Potassium Cancelled POC Chloride (101-112) mmol/L Chloride Cancelled Carbon Dioxide Cancelled POC Total CO2 (24-31) mmol/L Anion Gap Cancelled POC Anion Gap (16-25) mmol/L POC BUN (7-18) mg/dl BUN Cancelled Creatinine Cancelled POC Creatinine (0.6-1.3) mg/dl Est Cr Clr Drug Dosing Cancelled Est GFR ( Amer) Cancelled Est GFR (Non-Af Amer) Cancelled BUN/Creatinine Ratio Cancelled Glucose Cancelled POC Glucose (70-99) mg/dl POC Glucose (other) (70-99) mg/dl Calcium Cancelled POC Ioniz Calcium Crystal (1.12-1.32) mmol/l Phosphorus Cancelled Magnesium Cancelled Total Bilirubin Cancelled AST Cancelled ALT Cancelled Alkaline Phosphatase Cancelled Troponin I High Sens Cancelled Total Protein Cancelled Albumin Cancelled Globulin Cancelled Albumin/Globulin Ratio Cancelled Lipase Cancelled TSH Cancelled Free T4 (0.61-1.60) ng/dl SARS-CoV-2, RNA, NAAT (NEGATIVE) Blood Parasites ID Cancelled 07/29/22 07/29/22 07/29/22 Range/Units 19:42 19:43 19:49 WBC RBC Hgb POC Hgb (14.0-18.0) g/dl Hct POC Hct (42-52) % MCV MCH MCHC RDW Std Deviation RDW Coeff of Stefanie Plt Count MPV Immature Gran % (Auto) Neut % (Auto) Lymph % (Auto) [place] % (Auto) Eos % (Auto) Baso % (Auto) Neut # (Auto) Lymph # (Auto) [place] # (Auto) Eos # (Auto) Baso # (Auto) Immature Gran # (Auto) Absolute Nucleated RBC Nucleated RBC % (auto) Neutrophils % (Manual) Band Neutrophils % Lymphocytes % (Manual) Prolymphocyte % Reactive Lymphs % (Man) Monocytes % (Manual) Eosinophils % (Manual) Basophils % (Manual) Metamyelocytes % (Man) Myelocytes % (Man) Promyelocytes % (Man) Blast Cells % (Manual) Plasma Cell % (Manual) Other Cells % Nucleated RBC % Neutrophils # (Manual) Band Neutrophils # Total Absolute Neuts Lymphocytes # (Manual) Prolymphocyte # Reactive Lymphs # Total Abs Lymphocytes Monocytes # (Manual) Eosinophils # (Manual) Basophils # (Manual) Metamyelocytes # (Man) Myelocytes # (Manual) Promyelocytes # (Man) Blast Cells # (Man) Plasma Cell # (Manual) Other Cells # Nucleated RBCs # (Man) Hypersegmented Neuts Hyposegmented Neuts Hypogranular Neuts Large Granular Lymphs # Lrg Granular Lymphs Hairy Cells Smudge Cells Toxic Granulation Toxic Vacuolation Dohle Bodies Promise Rods Platelet Estimate Hypogranular Platelets Clumped Platelets Giant Platelets Platelet Satelliting RBC Morphology Polychromasia Hypochromasia Poikilocytosis Basophilic Stippling Anisocytosis Microcytosis Macrocytosis Spherocytes Pappenheimer Bodies Sickle Cells Target Cells Tear Drop Cells Ovalocytes Stomatocytes Marcelino-Fontanet Bodies Echinocytes Acanthocytes (Spur) Rouleaux RBC Agglutinates Schistocytes Sezary Cell POC Sodium (135-144) mmol/L Sodium POC Potassium (3.3-5.0) mmol/L Potassium POC Chloride (101-112) mmol/L Chloride Carbon Dioxide POC Total CO2 (24-31) mmol/L Anion Gap POC Anion Gap (16-25) mmol/L POC BUN (7-18) mg/dl BUN Creatinine POC Creatinine (0.6-1.3) mg/dl Est Cr Clr Drug Dosing Est GFR ( Amer) Est GFR (Non-Af Amer) BUN/Creatinine Ratio Glucose POC Glucose 341 H* 348 H* (70-99) mg/dl POC Glucose (other) (70-99) mg/dl Calcium POC Ioniz Calcium Crystal (1.12-1.32) mmol/l Phosphorus Magnesium Total Bilirubin AST ALT Alkaline Phosphatase Troponin I High Sens Total Protein Albumin Globulin Albumin/Globulin Ratio Lipase TSH 6.438 H Free T4 1.20 (0.61-1.60) ng/dl SARS-CoV-2, RNA, NAAT (NEGATIVE) Blood Parasites ID 07/29/22 07/29/22 07/29/22 Range/Units 19:49 19:49 19:52 WBC 7.32 RBC 4.11 L Hgb 12.6 L POC Hgb 11.9 L (14.0-18.0) g/dl Hct 37.0 L POC Hct 35 L (42-52) % MCV 90.0 MCH 30.7 MCHC 34.1 RDW Std Deviation 43.0 RDW Coeff of Stefanie 13.1 Plt Count 164 MPV 10.2 Immature Gran % (Auto) 0.3 Neut % (Auto) 68.6 Lymph % (Auto) 21.4 [place] % (Auto) 7.0 Eos % (Auto) 2.3 Baso % (Auto) 0.4 Neut # (Auto) 5.02 Lymph # (Auto) 1.57 [place] # (Auto) 0.51 Eos # (Auto) 0.17 Baso # (Auto) 0.03 Immature Gran # (Auto) 0.02 Absolute Nucleated RBC Nucleated RBC % (auto) Neutrophils % (Manual) Band Neutrophils % Lymphocytes % (Manual) Prolymphocyte % Reactive Lymphs % (Man) Monocytes % (Manual) Eosinophils % (Manual) Basophils % (Manual) Metamyelocytes % (Man) Myelocytes % (Man) Promyelocytes % (Man) Blast Cells % (Manual) Plasma Cell % (Manual) Other Cells % Nucleated RBC % Neutrophils # (Manual) Band Neutrophils # Total Absolute Neuts Lymphocytes # (Manual) Prolymphocyte # Reactive Lymphs # Total Abs Lymphocytes Monocytes # (Manual) Eosinophils # (Manual) Basophils # (Manual) Metamyelocytes # (Man) Myelocytes # (Manual) Promyelocytes # (Man) Blast Cells # (Man) Plasma Cell # (Manual) Other Cells # Nucleated RBCs # (Man) Hypersegmented Neuts Hyposegmented Neuts Hypogranular Neuts Large Granular Lymphs # Lrg Granular Lymphs Hairy Cells Smudge Cells Toxic Granulation Toxic Vacuolation Dohle Bodies Promise Rods Platelet Estimate Hypogranular Platelets Clumped Platelets Giant Platelets Platelet Satelliting RBC Morphology Polychromasia Hypochromasia Poikilocytosis Basophilic Stippling Anisocytosis Microcytosis Macrocytosis Spherocytes Pappenheimer Bodies Sickle Cells Target Cells Tear Drop Cells Ovalocytes Stomatocytes Marcelino-Fontanet Bodies Echinocytes Acanthocytes (Spur) Rouleaux RBC Agglutinates Schistocytes Sezary Cell POC Sodium 137 (135-144) mmol/L Sodium 137 POC Potassium 6.4 H* (3.3-5.0) mmol/L Potassium 4.1 POC Chloride 105 (101-112) mmol/L Chloride 108 H Carbon Dioxide 21 POC Total CO2 23 L (24-31) mmol/L Anion Gap 8 POC Anion Gap 16.0 (16-25) mmol/L POC BUN 27 H (7-18) mg/dl BUN 18 Creatinine 1.10 POC Creatinine 1.1 (0.6-1.3) mg/dl Est Cr Clr Drug Dosing 64.7 Est GFR ( Amer) 77.3 Est GFR (Non-Af Amer) 66.7 BUN/Creatinine Ratio 16.4 Glucose 319 H* POC Glucose (70-99) mg/dl POC Glucose (other) 329 H (70-99) mg/dl Calcium 7.2 L POC Ioniz Calcium Crystal 0.98 L (1.12-1.32) mmol/l Phosphorus 3.1 Magnesium 1.9 Total Bilirubin 0.5 AST 16 ALT 17 Alkaline Phosphatase 98 Troponin I High Sens 8.9 Total Protein 5.0 L Albumin 3.1 L Globulin 1.9 L Albumin/Globulin Ratio 1.6 Lipase 18 TSH Free T4 (0.61-1.60) ng/dl SARS-CoV-2, RNA, NAAT (NEGATIVE) Blood Parasites ID 07/29/22 07/29/22 Range/Units 20:30 21:53 WBC RBC Hgb POC Hgb (14.0-18.0) g/dl Hct POC Hct (42-52) % MCV MCH MCHC RDW Std Deviation RDW Coeff of Stefanie Plt Count MPV Immature Gran % (Auto) Neut % (Auto) Lymph % (Auto) [place] % (Auto) Eos % (Auto) Baso % (Auto) Neut # (Auto) Lymph # (Auto) [place] # (Auto) Eos # (Auto) Baso # (Auto) Immature Gran # (Auto) Absolute Nucleated RBC Nucleated RBC % (auto) Neutrophils % (Manual) Band Neutrophils % Lymphocytes % (Manual) Prolymphocyte % Reactive Lymphs % (Man) Monocytes % (Manual) Eosinophils % (Manual) Basophils % (Manual) Metamyelocytes % (Man) Myelocytes % (Man) Promyelocytes % (Man) Blast Cells % (Manual) Plasma Cell % (Manual) Other Cells % Nucleated RBC % Neutrophils # (Manual) Band Neutrophils # Total Absolute Neuts Lymphocytes # (Manual) Prolymphocyte # Reactive Lymphs # Total Abs Lymphocytes Monocytes # (Manual) Eosinophils # (Manual) Basophils # (Manual) Metamyelocytes # (Man) Myelocytes # (Manual) Promyelocytes # (Man) Blast Cells # (Man) Plasma Cell # (Manual) Other Cells # Nucleated RBCs # (Man) Hypersegmented Neuts Hyposegmented Neuts Hypogranular Neuts Large Granular Lymphs # Lrg Granular Lymphs Hairy Cells Smudge Cells Toxic Granulation Toxic Vacuolation Dohle Bodies Promise Rods Platelet Estimate Hypogranular Platelets Clumped Platelets Giant Platelets Platelet Satelliting RBC Morphology Polychromasia Hypochromasia Poikilocytosis Basophilic Stippling Anisocytosis Microcytosis Macrocytosis Spherocytes Pappenheimer Bodies Sickle Cells Target Cells Tear Drop Cells Ovalocytes Stomatocytes Marcelino-Fontanet Bodies Echinocytes Acanthocytes (Spur) Rouleaux RBC Agglutinates Schistocytes [place] Cell POC Sodium (135-144) mmol/L Sodium POC Potassium (3.3-5.0) mmol/L Potassium POC Chloride (101-112) mmol/L Chloride Carbon Dioxide POC Total CO2 (24-31) mmol/L Anion Gap POC Anion Gap (16-25) mmol/L POC BUN (7-18) mg/dl BUN Creatinine POC Creatinine (0.6-1.3) mg/dl Est Cr Clr Drug Dosing Est GFR ( Amer) Est GFR (Non-Af Amer) BUN/Creatinine Ratio Glucose POC Glucose 172 H (70-99) mg/dl POC Glucose (other) (70-99) mg/dl Calcium POC Ioniz Calcium Crystal (1.12-1.32) mmol/l Phosphorus Magnesium Total Bilirubin AST ALT Alkaline Phosphatase Troponin I High Sens Total Protein Albumin Globulin Albumin/Globulin Ratio Lipase TSH Free T4 (0.61-1.60) ng/dl SARS-CoV-2, RNA, NAAT NEGATIVE (NEGATIVE) Blood Parasites ID Imaging Data Radiologist's Impression: Chest X-Ray 07/29/22 19:36 XR chest 1V portable CLINICAL HISTORY: Atypical chest pain. COMPARISON STUDY: Chest CT July 15, 2021. Chest radiograph January 10, 2022. FINDINGS: Lung volumes are diminished. This likely reflects a hypoventilatory study. Cardiomegaly is noted. Mediastinal widening is accentuated on this hypov entilatory study. No pneumothorax or pleural effusion is present. Right basilar opacities favor atelectasis. There is no consolidation. No evidence for overt pulmonary edema. IMPRESSION: 1. Suspected hypoventilatory study. Cardiomegaly. No definite acute findings. 2. Mediastinal widening, probably technical. ACT 112: Negative or not required by law. Electronically signed by: Art Castillo M.D. 07/29/2022 8:13 PM CTA chest: Findings: Lungs: There is no focal infiltrate. There is no pleural effusion or pneumothorax. The tracheobronchial tree is patent. Dependent atelectasis. Heart: Cardiomegaly. No pericardial effusion the Vasculature: No aortic dissection or inflammation. No intramural hematoma. Thyroid: Within normal limits. Mediastinum and lymph nodes: There are no pathologically enlarged mediastinal, hilar, or axillary lymph nodes. Superior abdomen: Included portions of the superior abdomen are within normal limits. Musculoskeletal: Within normal limits. Impression: No aortic dissection or aneurysm formation. No intramural hematoma. Radiologist: Yao Gilman MD ECG Data Attestation: I personally reviewed and interpreted this ECG as follows: Indication: + chest pain and + palpitations Rate (beats per minute): 231 Rhythm: + atrial fibrillation ECG Intervals/blocks: + IVCD and + Normal QT ECG [place]: + Right axis deviation ECG ST segments: + Nonspecific ST abnormalities Additional Comments: Repeat EKG following emergent cardioversion shows atrial fibrillation at a rate of 59, QRS of 146, QT 452, rightward axis, PVCs, nonspecific ST/T wave changes MDM Narrative An order was placed for continuous cardiac monitoring. The monitor shows a rate of _226_ with _a.fib__ rhythm. This is a 72-year-old male presents emergency department due to concern for chest pain and tachycardia. EMS did try adenosine 6 mg with no improvement. Patient does have prior history of atrial fibrillation. I was called urgently to room a 1 as patient had a heart rate in the 200s and was significantly hypotensive. Patient was still awake and talking, had no respiratory distress, was still complaining of chest pain. Upon obtaining additional brief history from the patient and son, we discussed cardioversion which patient has had done previously. Patient and son were in agreement. Nursing staff was obtaining additional IV access, drawing bloods, and applying pads to patient's chest for cardioversion. IV fluids were running in an attempt to improve his blood pressure in order to give him a small amount of sedation prior to the procedure. Patient did have a minor improvement in his blood pressure, he was given 50 mics of fentanyl and 1 mg of Versed. Patient was then cardioverted with 200 J with successful conversion to a slow atrial fibrillation and blood pressure began to improve. Patient was monitored in the room, and continued to improve and to return to baseline. Patient's heart rate remained in the 50s, blood pressure came up to the 90s over 50s. Initial [id number] BMP drawn by staff revealed significant hypokalemia and hypoglycemia which patient had reported caused his episode previously. Patient was given an amp of D50, and I ordered potassium and magnesium boluses. Upon a recheck BSG following cardioversion, it was significantly elevated at 340, and I discussed with nursing staff possible error. After additional discussion amongst nursing staff in the room and those who performed the blood draw, it was determined that the initial [id number] BMP was likely drawn downstream from an IV that had IV fluids running. Potas sium repletion was stopped and a repeat was obtained. This revealed elevated blood sugar likely from the recent D50 however a mildly elevated potassium. Patient continued to be given IV fluids. I did not leave the room from the time I entered until the patient had returned to baseline following the procedure. Chest x-ray reassuring. Patient reported significant improvement in his chest pain following cardioversion. We discussed continued inpatient evaluation and further monitoring. Patient is anticoagulated. Patient does not use digoxin or amiodarone. No evidence of RYAN. Was noted to have a prior history of prolonged QTC and magnesium infusion was still given. After 2 L of IV fluids and improvement in patient's blood pressure, he was decreased to a maintenance rate. Case discussed with hospitalist for additional evaluation and management. Impression & Plan Cardiac dysrhythmia, Chest pain, Hypotension Discharge Plan Visit Data Chief Complaint: Cardiac Assessment ED Provider: Nola Peterson Discharge Problem: Cardiac dysrhythmia, Chest pain, Hypotension Patient Disposition: Admitted As Inpatient Discharge Instructions Interventions: ED Discharge Assessment Last Done: 07/29/22 22:35
[2022-07-29 20:04] LABS: iSTAT Creatinine 1.1 mg/dl (0.6-1.3); iSTAT Hemoglobin 11.9 g/dl (14.0-18.0); iSTAT Ionized Calcium 0.98 mmol/l (1.12-1.32); iSTAT Potassium 6.4 mmol/L (3.3-5.0)
[2022-07-29 20:06] LABS: Basophils # (auto) 0.03 K/uL (0-0.2); Basophils % (auto) 0.4 %; Eosinophils # (auto) 0.17 K/uL (0-0.50); Eosinophils % (auto) 2.3 %; Hemoglobin 12.6 g/dl (14.0-18.0); Immature Granulocytes # (auto) 0.02 K/uL (0.00-0.02); Immature Granulocytes % (auto) 0.3 %; Lymphocytes # (auto) 1.57 K/uL (1.2-3.4); Lymphocytes % (auto) 21.4 %; Mean Corpuscular Hemoglobin 30.7 pg (25.0-34.0); Mean Corpuscular Hgb Conc 34.1 g/dL (32.0-36.0); Mean Platelet Volume 10.2 fL (9.4-12.4); Monocytes # (auto) 0.51 K/uL (0.24-0.82); Neutrophils # (auto) 5.02 K/uL (1.4-6.5); Neutrophils % (auto) 68.6 %; Platelet Count 164 K/uL (130-400); RDW Coefficient of Variation 13.1 % (11.5-14.5); Red Blood Count 4.11 M/uL (4.63-6.08); White Blood Count 7.32 K/ul (4.8-10.8)
--- NOTE | 2022-07-29 20:16 | XRay Report ---
XR chest 1V portable CLINICAL HISTORY: Atypical chest pain. COMPARISON STUDY: Chest CT July 15, 2021. Chest radiograph January 10, 2022. FINDINGS: Lung volumes are diminished. This likely reflects a hypoventilatory study. Cardiomegaly is noted. Mediastinal widening is accentuated on this hypoventilatory study. No pneumothorax or pleural effusion is present. Right basilar opacities favor atelectasis. There is no consolidation. No evidenc e for overt pulmonary edema. IMPRESSION: 1. Suspected hypoventilatory study. Cardiomegaly. No definite acute findings. 2. Mediastinal widening, probably technical. ACT 112: Negative or not required by law. Electronically signed by: Art Castillo M.D. 07/29/2022 8:13 PM
[2022-07-29] MEDS ORDERED: SODIUM CHLORIDE 0.9% 1000ML 1,000 ML IV ONE (20:35)
[2022-07-29 20:50] LABS: Thyroid Stimulating Hormone 6.438 uIu/ml (0.300-4.500)
[2022-07-29 20:53] LABS: Troponin I High Sensitivity 8.9 pg/ml (0-20)
[2022-07-29 20:59] LABS: Albumin Globulin Ratio 1.6 (0.9-2); Albumin Level 3.1 gm/dl (3.4-5.0); BUN Creatinine Ratio 16.4 (10-20); Bilirubin,Total 0.5 mg/dl (0.2-1.0); Calcium 7.2 mg/dl (8.5-10.1); Creatinine Clr Calc Pharmacy 64.7 ml/min; Est GFR (African American) 77.3 ml/min; Est GFR (Non-African American) 66.7 ml/min; Globulin 1.9 gm/dl (2.5-4.0); Magnesium 1.9 mg/dl (1.7-2.4); Phosphorus 3.1 mg/dl (2.5-4.9); Potassium 4.1 mmol/L (3.5-5.1)
[2022-07-29] MEDS ORDERED: OPTIRAY 300 500mL IV ONE (21:01)
[2022-07-29] MEDS ORDERED: SODIUM CHLORIDE 0.9% 1000ML 1,000 ML IV SCH (21:15)
[2022-07-29 21:22] LABS: T4 Free Thyroxine 1.2 ng/dl (0.61-1.60)
--- NOTE | 2022-07-29 22:17 | History & Physical Report ---
Date of Service July 29, 2022 Assessment & Plan (1) Cardiac dysrhythmia: Plan: 72-year-old male with history of hypertension, hyperlipidemia and nonischemic cardiomyopathy/CHF with resolved ejection fraction presenting with tachycardia arrhythmia, heart rate in the 230s while at home. Patient unstable upon arrival with substernal chest discomfort, shortness of breath and blood pressure in the 70s. He was medicated with midazolam and fentanyl and received synchronized cardioversion with 200 J and subsequent return to rate controlled atrial fibrillation. Patient is anticoagulated on apixaban. Had similar presentation at a hospital in [facility] in June. Patient cardioverted with return to A. fib. Also found to be profoundly hypokalemic which was repleted. Since that time he has been taking oral magnesium as well as potassium and trying to drink Gatorade more frequently for electrolytes. Patient is compliant with his medications. The only change was this morning he took his morning medication at 5:30 AM rather than at 8:00 as per usual. Recently in rate controlled atrial fibrillation. Anticoagulated with apixaban Admit to PCU Continue carvedilol -Electrolyte repletion as needed Cardiology consultation appreciated. Question need for further EP studies, ablation? (2) Nonischemic cardiomyopathy: Plan: Patient with history of nonischemic cardiomyopathy diagnosed several years ago. Prior EF of 50%. Most recent echo performed in [facility] on June 21, 2022 with EF of 57%, normal LV size and function, mildly enlarged left atrial volume and inferior basilar wall hypokinesis. Continue Entresto 1 tab p.o. twice daily Check 2D echo Continue carvedilol 25 mg p.o. twice daily Cardiology consultation appreciated (3) Atrial fibrillation: Plan: Patient with newly diagnosed atrial fibrillation approximately 1 month ago. Continue carvedilol Continue apixaban (4) HLD (hyperlipidemia): Plan: Chronic. Stable. Continue atorvastatin 40 mg p.o. every morning (5) Hypertension: Plan: Initially with hypotension in setting of unstable arrhythmia status post DC cardioversion with return to atrial fibrillation. Blood pressure presently 117/68 Continue carvedilol 25 mg p.o. twice daily with holding parameters Continue Entresto with holding parameters (6) BPH with obstruction/lower urinary tract symptoms: Plan: Chronic. Stable. Continue Flomax 0.4 mg p.o. nightly Continue finasteride 5 mg p.o. every morning Continue oxybutynin 5 mg p.o. every morning (7) GERD (gastroesophageal reflux disease): Plan: . Well-controlled with medications Continue Protonix 40 mg p.o. twice daily Insomniapatient was previously on trazodone which was discontinued during hospitalization and [facility] due to prolonged QT interval. F/E/N Prophylaxisanticoagulated with apixaban Codefull per discussion with patient Dispositionadmit to PCU History of Present Illness Chief Complaint: Arrhythmia Primary Care Provider: Huyen Villa MD Brando Badillo is a pleasant 72-year-old male with history of nonischemic cardiomyopathy with recovered EF, newly diagnosed atrial fibrillation approximately 1 month ago on Eliquis anticoagulation, hypertension, hyperlipidemia, GERD presenting with episode of tachyarrhythmia at home. Patient was in his usual state of health until this evening at 1820 when he had a syncopal event. He had elevated heart rate over 220 while at home with associated chest discomfort and tightness, shortness of breath and dizziness. EMS was called and patient was found to be in atrial fibrillation with a heart rate of [id number]. Patient's blood pressure was initially preserved then decreased. He was administered IV fluids by EMS. Upon arrival to the ER patient with rate of 231 bpm, blood pressure 71/52, respiratory rate of 29 saturating 99% on 15 L of oxygen by nonrebreather. Consent was obtained by ER physician and patient had synchronized cardioversion with 200 J with return to rate controlled atrial fibrillation. During my encounter, patient complaining of feeling tired. He denies further chest pain but still has some shortness of breath. Patient follows with cardiology, Dr. Del Cid. Last seen on 07/03/2022. He had a Holter monitor in the past which revealed frequent PVCsno atrial fibrillation and 2 episodes of SVT. Patient had a similar presentation while in [facility] where he presented with SVT. He was administered adenosine and ultimately received DC cardioversion with return to rate controlled atrial fibrillation. At that time he had significant hypokalemia which was treated. Records from this visit have been scanned into [facility] 06/22/2022. ER course: Midazolam 1 mg, fentanyl 50 mcg, D50 x1 amp (given because initial i- STAT showed severe hypoglycemia which in turn turned out to be a false read), normal saline x2 L, magnesium sulfate x1 g, calcium gluconate x1 g Allergies Allergy/AdvReac Type Severity Reaction Status Date / Time No Known Allergies Allergy Verified 07/17/22 15:46 Home Medications Medication Instructions Recorded Confirmed Type diphenhydramine 25 1 tab PO HS 04/20/21 07/29/22 History mg-acetaminophen 500 mg tablet (Tylenol PM Extra Strength) hyoscyamine sulfate 0.125 mg tablet 0.125 mg PO HS PRN abdominal pain 05/05/21 07/29/22 Rx #90 tabs tamsulosin 0.4 mg capsule 0.4 mg PO HS 08/29/21 07/29/22 History pantoprazole 40 mg tablet,delayed 40 mg PO BID #180 tabs 10/18/21 07/29/22 Rx release atorvastatin 40 mg tablet 40 mg PO QAM #90 tabs 01/16/22 07/29/22 Rx carvedilol 25 mg tablet 25 mg PO BID #180 tabs 04/14/22 07/29/22 Rx sacubitril 97 mg-valsartan 103 mg 1 tab PO BID #180 tabs 04/14/22 07/29/22 Rx tablet (Entresto) amlodipine 5 mg tablet 5 mg PO HS 05/17/22 07/29/22 History finasteride 5 mg tablet 5 mg PO QAM 05/17/22 07/29/22 History mirabegron 50 mg tablet,extended 50 mg PO QAM 05/17/22 07/29/22 History release 24 hr (Myrbetriq) oxybutynin chloride 5 mg 5 mg PO QAM 05/17/22 07/29/22 History tablet,extended release 24 hr apixaban 5 mg tablet 5 mg PO BID #60 tabs 07/03/22 07/29/22 Rx magnesium 200 mg tablet 200 mg PO DAILY 07/17/22 07/29/22 History mirtazapine 7.5 mg tablet 7.5 mg PO DAILY #90 tabs 07/25/22 07/29/22 Rx potassium 99 mg tablet 99 mg PO BID 07/29/22 07/29/22 History Past Med/Surg History Medical History (Updated 07/30/22 @ 02:32 by Natividad Calvillo DO) Barretts esophagus BPH with obstruction/lower urinary tract symptoms Congestive heart failure Diverticular disease GERD (gastroesophageal reflux disease) Herniated nucleus pulposus, lumbar Hiatal hernia History of COVID-19 12/2021 - congestion - home test and public testing - no hospitalization - resolved Hyperlipidemia Hypertension Myocardial Infarction 11/2019--had heart cath @ [facility]--per pt reason for SD was CHF?--follows Dr. Del Cid Osteoarthritis PVC's (premature ventricular contractions) Surgical History History of cardiac cath 11/2019 @ [facility]--no stents placed History of colonoscopy (04/25/21) History of esophagogastroduodenoscopy (EGD) (08/02/20) History of hernia repair at age 11 History of prostate biopsy benign History of removal of cyst off lumbar back History of right cataract surgery History of surgical procedure on mouth dental implants History of tooth extraction Family History Other No family history of adverse response to anesthesia Denies family history of Ovarian cancer Prostate cancer Breast cancer Lung cancer Colorectal cancer Social History Smoking Status: Never smoker Tobacco Type: Cigarettes Second Hand Exposure: No; Do You Dip or Chew Tobacco: No; Tobacco Cessation Education Requested by Patient: No Hx Alcohol Use: No Hx Substance Use: No Preferred Language: Nepali Communication Ability: Effective Battery Tester And Repairer Required: No Beliefs That Will Affect Care: None marital status: Current Living Situation: Spouse current occupational status: retired 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 Other Information That Helps Us Care for You: No Feels Safe at Home: Yes Safety Concerns: Feels Safe At This Time caffeine: Yes Dental Care, Regularly: Yes Physical Activity Frequency: Does not Exercise Seatbelt Use: always Sunscreen Use: No Assistive Devices: Glasses Review of Systems Review of Systems: All systems reviewed & are unremarkable except as noted in HPI & below Physical Exam Physical Exam: General: patient resting comfortably, NAD, non-toxic in appearance, AA&O x 4 Skin: warm, dry, intact, no rashes or lesions HEENT: NC/AT, PERRL, EOMI, anicteric sclera, conjunctiva without injection, external ear normal to inspection and nontender, nares patent, moist mucus membranes, dentition intact, no oropharyngeal lesions, neck supple, trachea midline, no LAD, no thyromegaly, no JVD Heart: +S1/S2, irregularly irregular, no m/r/g Lungs: equal air entry bilaterally, no rales/rhonchi/wheezes Abd: +BS, soft, NT/ND, no masses/organomegaly/ascites Ext: warm, 2+ pulses in UE/LE bilaterally, no clubbing/cyanosis or edema Neuro: nonfocal, patient AA&O x 4, speech intact, no facial droop, moving all extremities on command with equal strength 5/5 Results & Data Results & Data ([facility]) Vital Signs (Past 12 Hours) Vital Signs Temp Pulse Resp BP Pulse Ox O2 Del Method O2 Flow Rate 07/29/22 22:01 53 L 18 102/70 95 Nasal Cannula 2 07/29/22 22:00 55 L 15 100/66 93 Nasal Cannula 2 07/29/22 21:30 52 L 20 101/69 96 Nasal Cannula 2 07/29/22 21:14 55 L 24 123/72 96 Nasal Cannula 3 07/29/22 20:46 54 L 22 99/75 L 96 Nasal Cannula 3 07/29/22 20:31 56 L 20 87/55 L 93 Nasal Cannula 3 07/29/22 20:21 55 L 20 93/59 L 93 Nasal Cannula 3 07/29/22 20:09 57 L 22 94/69 L 92 Nasal Cannula 3 07/29/22 19:15 36.5 C 07/29/22 20:00 52 L 18 85/63 L 93 Nasal Cannula 3 07/29/22 19:40 52 L 16 84/56 L 95 Non-rebreather 15 07/29/22 19:35 61 26 H 92/57 L 98 Non-rebreather 15 07/29/22 19:28 230 H 28 H 100/47 L 96 Non-rebreather 15 07/29/22 19:18 231 H 29 H 71/52 L 99 Non-rebreather 15 07/29/22 19:58 98 Room Air, Non-rebreather 15 Laboratory Results Laboratory Results WBC 7.32 K/ul (4.8-10.8) 07/29/22 19:49 RBC 4.11 M/uL (4.63-6.08) L 07/29/22 19:49 Hgb 12.6 g/dl (14.0-18.0) L 07/29/22 19:49 POC Hgb 11.9 g/dl (14.0-18.0) L 07/29/22 19:52 Hct 37.0 % (40.1-51.0) L 07/29/22 19:49 POC Hct 35 % (42-52) L 07/29/22 19:52 MCV 90.0 fL (80.0-100.0) 07/29/22 19:49 MCH 30.7 pg (25.0-34.0) 07/29/22 19:49 MCHC 34.1 g/dL (32.0-36.0) 07/29/22 19:49 RDW Std Deviation 43.0 fL (36.4-46.3) 07/29/22 19:49 RDW Coeff of Stefanie 13.1 % (11.5-14.5) 07/29/22 19:49 Plt Count 164 K/uL (130-400) 07/29/22 19:49 MPV 10.2 fL (9.4-12.4) 07/29/22 19:49 Immature Gran % (Auto) 0.3 % 07/29/22 19:49 Neut % (Auto) 68.6 % 07/29/22 19:49 Lymph % (Auto) 21.4 % 07/29/22 19:49 [place] % (Auto) 7.0 % 07/29/22 19:49 Eos % (Auto) 2.3 % 07/29/22 19:49 Baso % (Auto) 0.4 % 07/29/22 19:49 Neut # (Auto) 5.02 K/uL (1.4-6.5) 07/29/22 19:49 Lymph # (Auto) 1.57 K/uL (1.2-3.4) 07/29/22 19:49 [place] # (Auto) 0.51 K/uL (0.24-0.82) 07/29/22 19:49 Eos # (Auto) 0.17 K/uL (0-0.50) 07/29/22 19:49 Baso # (Auto) 0.03 K/uL (0-0.2) 07/29/22 19:49 Immature Gran # (Auto) 0.02 K/uL (0.00-0.02) 07/29/22 19:49 Absolute Nucleated RBC Cancelled 07/29/22 19:27 Nucleated RBC % (auto) Cancelled 07/29/22 19:27 Neutrophils % (Manual) Cancelled 07/29/22 19:27 Band Neutrophils % Cancelled 07/29/22 19:27 Lymphocytes % (Manual) Cancelled 07/29/22 19:27 Prolymphocyte % Cancelled 07/29/22 19:27 Reactive Lymphs % (Man) Cancelled 07/29/22 19:27 Monocytes % (Manual) Cancelled 07/29/22 19:27 Eosinophils % (Manual) Cancelled 07/29/22 19:27 Basophils % (Manual) Cancelled 07/29/22 19:27 Metamyelocytes % (Man) Cancelled 07/29/22 19:27 Myelocytes % (Man) Cancelled 07/29/22 19:27 Promyelocytes % (Man) Cancelled 07/29/22 19:27 Blast Cells % (Manual) Cancelled 07/29/22 19:27 Plasma Cell % (Manual) Cancelled 07/29/22 19:27 Other Cells % Cancelled 07/29/22 19:27 Nucleated RBC % Cancelled 07/29/22 19:27 Neutrophils # (Manual) Cancelled 07/29/22 19:27 Band Neutrophils # Cancelled 07/29/22 19:27 Total Absolute Neuts Cancelled 07/29/22 19:27 Lymphocytes # (Manual) Cancelled 07/29/22 19:27 Prolymphocyte # Cancelled 07/29/22 19:27 Reactive Lymphs # Cancelled 07/29/22 19:27 Total Abs Lymphocytes Cancelled 07/29/22 19:27 Monocytes # (Manual) Cancelled 07/29/22 19:27 Eosinophils # (Manual) Cancelled 07/29/22 19:27 Basophils # (Manual) Cancelled 07/29/22 19:27 Metamyelocytes # (Man) Cancelled 07/29/22 19:27 Myelocytes # (Manual) Cancelled 07/29/22 19:27 Promyelocytes # (Man) Cancelled 07/29/22 19:27 Blast Cells # (Man) Cancelled 07/29/22 19:27 Plasma Cell # (Manual) Cancelled 07/29/22 19:27 Other Cells # Cancelled 07/29/22 19:27 Nucleated RBCs # (Man) Cancelled 07/29/22 19:27 Hypersegmented Neuts Cancelled 07/29/22 19:27 Hyposegmented Neuts Cancelled 07/29/22 19:27 Hypogranular Neuts Cancelled 07/29/22 19:27 Large Granular Lymphs Cancelled 07/29/22 19:27 # Lrg Granular Lymphs Cancelled 07/29/22 19:27 Hairy Cells Cancelled 07/29/22 19:27 Smudge Cells Cancelled 07/29/22 19:27 Toxic Granulation Cancelled 07/29/22 19:27 Toxic Vacuolation Cancelled 07/29/22 19:27 Dohle Bodies Cancelled 07/29/22 19:27 Promise Rods Cancelled 07/29/22 19:27 Platelet Estimate Cancelled 07/29/22 19:27 Hypogranular Platelets Cancelled 07/29/22 19:27 Clumped Platelets Cancelled 07/29/22 19:27 Giant Platelets Cancelled 07/29/22 19:27 Platelet Satelliting Cancelled 07/29/22 19:27 RBC Morphology Cancelled 07/29/22 19:27 Polychromasia Cancelled 07/29/22 19:27 Hypochromasia Cancelled 07/29/22 19:27 Poikilocytosis Cancelled 07/29/22 19:27 Basophilic Stippling Cancelled 07/29/22 19:27 Anisocytosis Cancelled 07/29/22 19:27 Microcytosis Cancelled 07/29/22 19:27 Macrocytosis Cancelled 07/29/22 19:27 Spherocytes Cancelled 07/29/22 19:27 Pappenheimer Bodies Cancelled 07/29/22 19:27 Sickle Cells Cancelled 07/29/22 19:27 Target Cells Cancelled 07/29/22 19:27 Tear Drop Cells Cancelled 07/29/22 19:27 Ovalocytes Cancelled 07/29/22 19:27 Stomatocytes Cancelled 07/29/22 19:27 [place] Bodies Cancelled 07/29/22 19:27 Echinocytes Cancelled 07/29/22 19:27 Acanthocytes (Spur) Cancelled 07/29/22 19:27 Rouleaux Cancelled 07/29/22 19:27 RBC Agglutinates Cancelled 07/29/22 19:27 Schistocytes Cancelled 07/29/22 19:27 Sezary Cell Cancelled 07/29/22 19:27 POC Sodium 137 mmol/L (135-144) 07/29/22 19:52 Sodium 137 mmol/L (136-145) 07/29/22 19:49 POC Potassium 6.4 mmol/L (3.3-5.0) H* 07/29/22 19:52 Potassium 4.1 mmol/L (3.5-5.1) 07/29/22 19:49 POC Chloride 105 mmol/L (101-112) 07/29/22 19:52 Chloride 108 mmol/L (98-107) H 07/29/22 19:49 Carbon Dioxide 21 mmol/L (21-32) 07/29/22 19:49 POC Total CO2 23 mmol/L (24-31) L 07/29/22 19:52 Anion Gap 8 (3-11) 07/29/22 19:49 POC Anion Gap 16.0 mmol/L (16-25) 07/29/22 19:52 POC BUN 27 mg/dl (7-18) H 07/29/22 19:52 BUN 18 mg/dl (6-23) 07/29/22 19:49 Creatinine 1.10 mg/dl (0.6-1.4) 07/29/22 19:49 POC Creatinine 1.1 mg/dl (0.6-1.3) 07/29/22 19:52 Est Cr Clr Drug Dosing 64.7 ml/min 07/29/22 19:49 Est GFR ( Amer) 77.3 ml/min 07/29/22 19:49 Est GFR (Non-Af Amer) 66.7 ml/min 07/29/22 19:49 BUN/Creatinine Ratio 16.4 (10-20) 07/29/22 19:49 Glucose 319 mg/dl (70-99(Fasting)) H* 07/29/22 19:49 POC Glucose 172 mg/dl (70-99) H 07/29/22 21:53 POC Glucose (other) 329 mg/dl (70-99) H 07/29/22 19:52 Calcium 7.2 mg/dl (8.5-10.1) L 07/29/22 19:49 POC Ioniz Calcium Crystal 0.98 mmol/l (1.12-1.32) L 07/29/22 19:52 Phosphorus 3.1 mg/dl (2.5-4.9) 07/29/22 19:49 Magnesium 1.9 mg/dl (1.7-2.4) 07/29/22 19:49 Total Bilirubin 0.5 mg/dl (0.2-1.0) 07/29/22 19:49 AST 16 U/L (13-39) 07/29/22 19:49 ALT 17 U/L (7-52) 07/29/22 19:49 Alkaline Phosphatase 98 U/L (34-104) 07/29/22 19:49 Troponin I High Sens 8.9 pg/ml (0-20) 07/29/22 19:49 Total Protein 5.0 gm/dl (6.0-8.3) L 07/29/22 19:49 Albumin 3.1 gm/dl (3.4-5.0) L 07/29/22 19:49 Globulin 1.9 gm/dl (2.5-4.0) L 07/29/22 19:49 Albumin/Globulin Ratio 1.6 (0.9-2) 07/29/22 19:49 Lipase 18 U/L (11-82) 07/29/22 19:49 TSH 6.438 uIu/ml (0.300-4.500) H 07/29/22 19:49 Free T4 1.20 ng/dl (0.61-1.60) 07/29/22 19:49 SARS-CoV-2, RNA, NAAT NEGATIVE (NEGATIVE) 07/29/22 20:30 Blood Parasites ID Cancelled 07/29/22 19:27 Impressions Chest X-Ray 07/29/22 19:36 XR chest 1V portable CLINICAL HISTORY: Atypical chest pain. COMPARISON STUDY: Chest CT July 15, 2021. Chest radiograph January 10, 2022. FINDINGS: Lung volumes are diminished. This likely reflects a hypoventilatory study. Cardiomegaly is noted. Mediastinal widening is accentuated on this hypoventilatory study. No pneumothorax or pleural effusion is present. Right basilar opacities favor atelectasis. There is no consolidation. No evidence for overt pulmonary edema. IMPRESSION: 1. Suspected hypoventilatory study. Cardiomegaly. No definite acute findings. 2. Mediastinal widening, probably technical. ACT 112: Negative or not required by law. Electronically signed by: Art Castillo M.D. 07/29/2022 8:13 PM Diagnostic Findings CTA: Per stat readlungs: There is no focal infiltrate. There is no pleural effusion or pneumothorax. The tracheobronchial tree is patent. Dependent atelectasis. Heart: Cardiomegaly. No pericardial effusion. Vasculature: No aortic dissection or aneurysm formation. No intramural thrombus. Thyroid: Within normal limits. Mediastinum and lymph nodes: There are no pathologically enlarged mediastinal, hilar, or axillary lymph nodes. Superior abdomen: The included portions of the superior abdomen are within normal limits. Musc uloskeletal: Within normal limits Impression: No aortic dissection or aneurysm formation. No intramural hematoma PG Care Time/CCT Total # of Minutes Spent Total Time Spent with Patient: Total time spent is greater than 50% in coordination of care (as documented) at patient's floor/unit and/or counseling patient: Coding Level of Care Code 80022 Initial Inpt Care Lvl 3 Diagnoses Cardiac dysrhythmia I49.9 Nonischemic cardiomyopathy I42.8 Atrial fibrillation I48.91 HLD (hyperlipidemia) E78.5 Hypertension I10 BPH with obstruction/lower urinary tract symptoms N40.1; N13.8 GERD (gastroesophageal reflux disease) K21.9
[2022-07-29] MEDS ORDERED: STAT IV STA (22:57)
[2022-07-29] MEDS ORDERED: ACETAMINOPHEN 325 MG TAB PO PRN (22:57)
[2022-07-29] MEDS ORDERED: CALCIUM GLUCONATE 10% 1,000 MG in DEXTROSE 5% 50 ML IV ONE (23:10)
[2022-07-29] MEDS: MIRTAZAPINE TAB 15 MG TAB PO SCH (23:33)
[2022-07-29] MEDS: carvediloL 25 MG TAB PO SCH (23:33)
[2022-07-29] MEDS: TAMSULOSIN HCL 0.4 MG CAP PO SCH (23:34)
[2022-07-29] MEDS: PANTOprazole 40 MG TAB PO SCH (23:34)
[2022-07-29] MEDS: VALSARTAN/SACUBITRIL 103/97MG TAB PO SCH (23:35)
[2022-07-29] MEDS: APIXABAN 5 MG TABLET PO SCH (23:36)
[2022-07-30 06:49] LABS: Hematocrit (blood only) 35.9 % (40.1-51.0); Hemoglobin 12.3 g/dl (14.0-18.0); Mean Corpuscular Hemoglobin 30.7 pg (25.0-34.0); Mean Corpuscular Hgb Conc 34.3 g/dL (32.0-36.0); Mean Corpuscular Volume 89.5 fL (80.0-100.0); Mean Platelet Volume 10.3 fL (9.4-12.4); Platelet Count 143 K/uL (130-400); RDW Coefficient of Variation 13.2 % (11.5-14.5); RDW Standard Deviation 43.3 fL (36.4-46.3); Red Blood Count 4.01 M/uL (4.63-6.08); White Blood Count 7.61 K/ul (4.8-10.8)
[2022-07-30 06:59] LABS: Albumin Level 3.1 gm/dl (3.4-5.0); BUN Creatinine Ratio 18.6 (10-20); Bilirubin Direct 0.1 mg/dl (0-0.2); Bilirubin,Total 0.4 mg/dl (0.2-1.0); Calcium 7.9 mg/dl (8.5-10.1); Creatinine Clr Calc Pharmacy 81.5 ml/min; Est GFR (African American) 99.7 ml/min; Magnesium 2.3 mg/dl (1.7-2.4); Potassium 3.7 mmol/L (3.5-5.1); Total Protein 5.3 gm/dl (6.0-8.3)
[2022-07-30] MEDS: FINASTERIDE 5 MG TAB PO SCH ×2 (08:41→20:16)
[2022-07-30] MEDS: carvediloL 25 MG TAB PO SCH ×2 (08:41→20:15)
[2022-07-30] MEDS: VALSARTAN/SACUBITRIL 103/97MG TAB PO SCH ×2 (08:41→20:21)
[2022-07-30] MEDS: PANTOprazole 40 MG TAB PO SCH ×2 (08:41→20:19)
[2022-07-30] MEDS: OXYBUTYNIN CHLORIDE XL 5 MG TABCR PO SCH (08:41)
[2022-07-30] MEDS: APIXABAN 5 MG TABLET PO SCH ×2 (08:43→20:14)
[2022-07-30] MEDS: ATORVASTATIN 40 MG TAB PO SCH (08:43)
[2022-07-30] MEDS ORDERED: APIXABAN 5 MG TABLET PO SCH (09:00)
[2022-07-30] MEDS ORDERED: PANTOprazole 40 MG TAB PO SCH (09:00)
[2022-07-30] MEDS ORDERED: carvediloL 25 MG TAB PO SCH (09:00)
[2022-07-30] MEDS ORDERED: VALSARTAN/SACUBITRIL 103/97MG TAB PO SCH (09:00)
--- NOTE | 2022-07-30 09:39 | CT Scan Report ---
CT ANGIOGRAPHY OF THE CHEST DISSECTION PROTOCOL CLINICAL HISTORY: Chest pain, dysrhythmia, abn cxr COMPARISON STUDY: Chest CT July 15, 2021. Chest radiograph performed earlier today. TECHNIQUE: Before and following the IV administration of 97 mL of Optiray, helical axial images of th e chest were obtained. Maximal intensity projections and sagittal and coronal reformats were viewed on an independent 3D workstation. IV contrast was administered without complication. Automated expo sure control was utilized for the study. A dose lowering technique was utilized adhering to the prin ciples of VLADIMIR. CT DOSE: 787.53 mGy.cm FINDINGS: Caliber of the thoracic aorta is normal. There is no intramural hematoma. There is no thor acic aortic dissection. Mild cardiomegaly is noted. There is no pericardial effusion. No central pulm onary emboli. Remainder of pulmonary arteries suboptimally assessed. No pneumothorax or pleural effus ion is present. Mild interlobular septal thickening is present. Subpleural opacities within lungs fav or atelectasis. There is no consolidation to suggest pneumonia. There are no suspicious pulmonary nod ules. No acute fractures within the visualized bony thorax. Visualized portions of the upper abdomen are unremarkable. IMPRESSION: 1. No thoracic aortic dissection. 2. Mild cardiomegaly. 3. Mild interstitial pulmonary edema. ACT 112: Negative or not required by law. Electronically signed by: Art Castillo M.D. 07/30/2022 9:36 AM
[2022-07-30] MEDS ORDERED: POTASSIUM CHLORIDE CRTAB 20 MEQ TABCR PO STA (11:05)
--- NOTE | 2022-07-30 11:38 | Cardiology Consultation ---
Date of Consultation July 30, 2022 History of Present Illness Reason for Consultation: Symptomatic atrial fibrillation Attending Physician: Allison Chaves MD History of Present Illness Patient had atrial fibrillation 6 weeks ago in [place] and was transferred to [place] for November work-up. It sounds like he converted back to sinus rhythm on his own that did not require cardioversion. He had a stress echo and an echo which normal. He was placed on beta-blockers. He saw Dr. Del Cid in after discharge who recommended he remain on anticoagulation. When he has atrial fibrillation he tends to have lightheaded and tunnel presyncopal. She had an episode again yesterday and out of the blue. In the emergency room he was in atrial fibrillation overnight using alert and back to sinus rhythm. He was also noted to have PVCs and Short runs of ventricular ectopy. Today he feels back to himself He was he was in no acute distress. He denies any chest pain or chest pressure. Denies any shortness of breath. He does appear to have signs and symptoms of obstructive sleep apnea. He snores, not well rested in the morning, and needs a nap in the afternoon. At times it sounds like he has caught himself obstructing his airway when he has been breathing. He has no lower extremity edema. Denies any claudication. He denies any orthopnea. Vascular system otherwise negative Allergies Allergy/AdvReac Type Severity Reaction Status Date / Time No Known Allergies Allergy Verified 07/17/22 15:46 Home Medications Medication Instructions Recorded Confirmed Type diphenhydramine 25 1 tab PO HS 04/20/21 07/29/22 History mg-acetaminophen 500 mg tablet (Tylenol PM Extra Strength) hyoscyamine sulfate 0.125 mg tablet 0.125 mg PO HS PRN abdominal pain 05/05/21 07/29/22 Rx #90 tabs tamsulosin 0.4 mg capsule 0.4 mg PO HS 08/29/21 07/29/22 History pantoprazole 40 mg tablet,delayed 40 mg PO BID #180 tabs 10/18/21 07/29/22 Rx release atorvastatin 40 mg tablet 40 mg PO QAM #90 tabs 01/16/22 07/29/22 Rx carvedilol 25 mg tablet 25 mg PO BID #180 tabs 04/14/22 07/29/22 Rx sacubitril 97 mg-valsartan 103 mg 1 tab PO BID #180 tabs 04/14/22 07/29/22 Rx tablet (Entresto) amlodipine 5 mg tablet 5 mg PO HS 05/17/22 07/29/22 History finasteride 5 mg tablet 5 mg PO QAM 05/17/22 07/29/22 History mirabegron 50 mg tablet,extended 50 mg PO QAM 05/17/22 07/29/22 History release 24 hr (Myrbetriq) oxybutynin chloride 5 mg 5 mg PO QAM 05/17/22 07/29/22 History tablet,extended release 24 hr apixaban 5 mg tablet 5 mg PO BID #60 tabs 07/03/22 07/29/22 Rx magnesium 200 mg tablet 200 mg PO DAILY 07/17/22 07/29/22 History mirtazapine 7.5 mg tablet 7.5 mg PO DAILY #90 tabs 07/25/22 07/29/22 Rx potassium 99 mg tablet 99 mg PO BID 07/29/22 07/29/22 History Patient History Medical History Barretts esophagus BPH with obstruction/lower urinary tract symptoms Congestive heart failure Diverticular disease GERD (gastroesophageal reflux disease) Herniated nucleus pulposus, lumbar Hiatal hernia History of COVID-19 12/2021 - congestion - home test and public testing - no hospitalization - resolved Hyperlipidemia Hypertension Myocardial Infarction 11/2019--had heart cath @ [facility]--per pt reason for CT was CHF?--follows Dr. Del Cid Osteoarthritis PVC's (premature ventricular contractions) Surgical History History of cardiac cath 11/2019 @ [facility]--no stents placed History of colonoscopy (04/25/21) History of esophagogastroduodenoscopy (EGD) (08/02/20) History of hernia repair at age 11 History of prostate biopsy benign History of removal of cyst off lumbar back History of right cataract surgery History of surgical procedure on mouth dental implants History of tooth extraction Family History Other No family history of adverse response to anesthesia Denies family history of Ovarian cancer Prostate cancer Breast cancer Lung cancer Colorectal cancer Social History Smoking Status: Never smoker Tobacco Type: Cigarettes Second Hand Exposure: No; Do You Dip or Chew Tobacco: No; Tobacco Cessation Education Requested by Patient: No Hx Alcohol Use: No Hx Substance Use: No Preferred Language: Swazi Communication Ability: Effective Customer Project Manager Required: No Beliefs That Will Affect Care: None marital status: Current Living Situation: Spouse current occupational status: retired 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 HEENT: 2+ upstrokes no evidence of carotid bruits Lungs: Clear to auscultation bilaterally no rales rhonchi wheezing HEART: Heart sounds are regular, no murmur or gallop or rub is heard. Abdomen soft nontender nondistended positive bowel sounds Extremities: No clubbing cyanosis or edema Assessment and Plan (1) Nonischemic cardiomyopathy: Resolved (2) Frequent PVCs: (3) CHF (congestive heart failure): (4) Atrial fibrillation: His LV function appears preserved based on his echocardiogram. Outpatient stress Was normal. He is clearly very symptomatic with his atrial fibrillation. I would consider an antiarrhythmic at this point. I will discuss Flecainide with Dr. Del Cid as this would be able reasonable option along with his ongoing use of beta-blockers. Not only with this suppresses atrial fibrillation but also suppresses ventricular ectopy. He is back in sinus rhythm today. He will remain on anticoagulation. They had a long list of questions which I helped answer for them. He denies any heart failure symptoms. he will need an outpatient sleep study as he clearly has obstructive sleep apnea. He is willing to complete this. Further recommendations will be forthcoming
[2022-07-30] MEDS: FLECAINIDE ACETATE 100 MG TABLET PO SCH ×2 (12:28→20:16)
--- NOTE | 2022-07-30 15:05 | Electrocardiogram Report ---
Test Reason : Blood Pressure : / mmHG Vent. Rate : 059 BPM Atrial Rate : 081 BPM P-R Int : 000 ms QRS Dur : 146 ms QT Int : 452 ms P-R-T Axes : 000 218 160 degrees QTc Int : 447 ms Atrial fibrillation with slow ventricular response with premature ventricular or aberrantly conducted complexes Right bundle branch block T wave abnormality, consider inferior ischemia Abnormal ECG When compared with ECG of 15-JUL-2021 14:28, Atrial fibrillation has replaced Sinus rhythm Right bundle branch block is now Present Confirmed by Maxx Olivo ([id number]) on 07/30/2022 3:05:04 PM Referred By: REFERRED SELF Confirmed By:Maxx Olivo
--- NOTE | 2022-07-30 16:39 | Hospitalist Progress Note ---
Date of Service July 30, 2022 Assessment & Plan (1) SVT (supraventricular tachycardia): Plan: 72-year-old male with history of hypertension, hyperlipidemia and nonischemic cardiomyopathy/CHF with resolved ejection fraction presenting with tachycardia arrhythmia, heart rate in the 230s while at home. Patient unstable upon arrival with substernal chest discomfort, shortness of breath and blood pressure in the 70s. He was medicated with midazolam and fentanyl and received synchronized cardioversion with 200 J and subsequent return to rate controlled atrial fibrillation. Patient is anticoagulated on apixaban. Had similar presentation at a hospital in [facility] in June. Patient cardioverted with return to A. fib. Also found to be profoundly hypokalemic which was repleted. Since that time he has been taking oral magnesium as well as potassium and trying to drink Gatorade more frequently for electrolytes. Patient is compliant with his medications. The only change was this morning he took his morning medication at 5:30 AM rather than at 8:00 as per usual. -presented with SVT and syncope, unstable and had urgent DCCV in ER with return to Afib and then back to NSR later This is second time he required urgent CV in the last month for similar ECHO with mildly reduced EF, anterior wall motion abnormality Appreciate Cardio consult--eval for EP study needed start flecainide will keep lytes optimized -continue ELiquis for afib -continue Coreg (2) Atrial fibrillation: Plan: Patient with newly diagnosed atrial fibrillation approximately 1 month ago. Continue carvedilol Continue apixaban (3) Syncope: Plan: as above, 2/2 unstable tachyarrhythmia (4) Nonischemic cardiomyopathy: Plan: Patient with history of nonischemic cardiomyopathy diagnosed several years ago. Prior EF of 50%. Most recent echo performed in [facility] on June 21, 2022 with EF of 57%, normal LV size and function, mildly enlarged left atrial volume and inferior basilar wall hypokinesis. Continue Entresto 1 tab p.o. twice daily Continue carvedilol 25 mg p.o. twice daily Cardiology consultation appreciated (5) HLD (hyperlipidemia): Plan: Chronic. Stable. Continue atorvastatin 40 mg p.o. every morning (6) Hypertension: Plan: Initially with hypotension in setting of unstable arrhythmia status post DC cardioversion with return to atrial fibrillation. Blood pressure now normal Continue carvedilol 25 mg p.o. 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 Stable. Continue Flomax 0.4 mg p.o. nightly Continue finasteride 5 mg p.o. every morning Continue oxybutynin 5 mg p.o. every morning (8) GERD (gastroesophageal reflux disease): Plan: . Well-controlled with medications Continue Protonix 40 mg p.o. twice daily Insomniapatient was previously on trazodone which was discontinued during hospitalization and [facility] due to prolonged QT interval. Prophylaxisanticoagulated with apixaban Codefull per discussion with patient Dispositionadmit to PCU Admission and Anticipated Discharge Date Admission Date: July 29, 2022 Subjective Pt reports feeling better, no CP or OSB, no nauusea. Tele with NSR normal rates Discussed care with Cardiology Review of Systems Review of Systems: All systems reviewed & are unremarkable except as noted in HPI & below Physical Exam Constitutional: WD/WN, vitals as above ENMT: external ear and nose normal, oropharynx normal Neck: trachea midline, no thyromegaly Respiratory: normal respiratory effort, lungs clear to auscultation Cardiovascular: RRR, no murmur, no edema Chest (Breasts): Chest: normal inspection of chest Gastrointestinal (Abdomen): normal bowel sounds, soft, nontender, no hepatosplenomegaly Musculoskeletal: Extremities: extremities normal to inspection; no cyanosis and no clubbing Skin: no rashes, warm and dry Neurologic: moves all extremities and awake; no focal motor deficits Psychiatric: A+Ox3, euthymic affect Lymphatic: no lymphedema Results & Data Results & Data ([facility]) Vital Signs (Past 12 Hours) Vital Signs Temp Pulse Pulse Resp BP Pulse Ox O2 Del Method 07/30/22 15:38 78 18 115/73 94 Room Air 07/30/22 12:22 36.6 C 79 18 112/75 95 Room Air 07/30/22 08:00 36.9 C 79 18 129/86 94 Room Air 07/30/22 08:00 75 Laboratory Results 07/30/22 07/30/22 07/29/22 Range/Units 05:44 05:44 21:53 WBC 7.61 RBC 4.01 L Hgb 12.3 L POC Hgb (14.0-18.0) g/dl Hct 35.9 L POC Hct (42-52) % MCV 89.5 MCH 30.7 MCHC 34.3 RDW Std Deviation 43.3 RDW Coeff of Stefanie 13.2 Plt Count 143 MPV 10.3 Immature Gran % (Auto) Neut % (Auto) Lymph % (Auto) Bill[place] % (Auto) Eos % (Auto) Baso % (Auto) Neut # (Auto) Lymph # (Auto) Bill[place] # (Auto) Eos # (Auto) Baso # (Auto) Immature Gran # (Auto) Absolute Nucleated RBC Nucleated RBC % (auto) Neutrophils % (Manual) Band Neutrophils % Lymphocytes % (Manual) Prolymphocyte % Reactive Lymphs % (Man) Monocytes % (Manual) Eosinophils % (Manual) Basophils % (Manual) Metamyelocytes % (Man) Myelocytes % (Man) Promyelocytes % (Man) Blast Cells % (Manual) Plasma Cell % (Manual) Other Cells % Nucleated RBC % Neutrophils # (Manual) Band Neutrophils # Total Absolute Neuts Lymphocytes # (Manual) Prolymphocyte # Reactive Lymphs # Total Abs Lymphocytes Monocytes # (Manual) Eosinophils # (Manual) Basophils # (Manual) Metamyelocytes # (Man) Myelocytes # (Manual) Promyelocytes # (Man) Blast Cells # (Man) Plasma Cell # (Manual) Other Cells # Nucleated RBCs # (Man) Hypersegmented Neuts Hyposegmented Neuts Hypogranular Neuts Large Granular Lymphs # Lrg Granular Lymphs Hairy Cells Smudge Cells Toxic Granulation Toxic Vacuolation Dohle Bodies Promise Rods Platelet Estimate Hypogranular Platelets Clumped Platelets Giant Platelets Platelet Satelliting RBC Morphology Polychromasia Hypochromasia Poikilocytosis Basophilic Stippling Anisocytosis Microcytosis Macrocytosis Spherocytes Pappenheimer Bodies Sickle Cells Target Cells Tear Drop Cells Ovalocytes Stomatocytes Marcelino-Bairdford Bodies Echinocytes Acanthocytes (Spur) Rouleaux RBC Agglutinates Schistocytes Sezary Cell POC Sodium (135-144) mmol/L Sodium 139 POC Potassium (3.3-5.0) mmol/L Potassium 3.7 POC Chloride (101-112) mmol/L Chloride 111 H Carbon Dioxide 24 POC Total CO2 (24-31) mmol/L Anion Gap 4 POC Anion Gap (16-25) mmol/L POC BUN (7-18) mg/dl BUN 16 Creatinine 0.86 POC Creatinine (0.6-1.3) mg/dl Est Cr Clr Drug Dosing 81.5 Est GFR ( Amer) 99.7 Est GFR (Non-Af Amer) 86.0 BUN/Creatinine Ratio 18.6 Glucose 159 H POC Glucose 172 H (70-99) mg/dl POC Glucose (other) (70-99) mg/dl Calcium 7.9 L POC Ioniz Calcium Crystal (1.12-1.32) mmol/l Phosphorus Magnesium 2.3 Total Bilirubin 0.4 Direct Bilirubin 0.1 (0-0.2) mg/dl AST 13 ALT 16 Alkaline Phosphatase 98 Troponin I High Sens Total Protein 5.3 L Albumin 3.1 L Globulin Albumin/Globulin Ratio Lipase TSH Free T4 (0.61-1.60) ng/dl SARS-CoV-2, RNA, NAAT (NEGATIVE) Blood Parasites ID 07/29/22 07/29/22 07/29/22 Range/Units 20:30 19:52 19:49 WBC 7.32 RBC 4.11 L Hgb 12.6 L POC Hgb 11.9 L (14.0-18.0) g/dl Hct 37.0 L POC Hct 35 L (42-52) % MCV 90.0 MCH 30.7 MCHC 34.1 RDW Std Deviation 43.0 RDW Coeff of Stefanie 13.1 Plt Count 164 MPV 10.2 Immature Gran % (Auto) 0.3 Neut % (Auto) 68.6 Lymph % (Auto) 21.4 Billings % (Auto) 7.0 Eos % (Auto) 2.3 Baso % (Auto) 0.4 Neut # (Auto) 5.02 Lymph # (Auto) 1.57 Billings # (Auto) 0.51 Eos # (Auto) 0.17 Baso # (Auto) 0.03 Immature Gran # (Auto) 0.02 Absolute Nucleated RBC Nucleated RBC % (auto) Neutrophils % (Manual) Band Neutrophils % Lymphocytes % (Manual) Prolymphocyte % Reactive Lymphs % (Man) Monocytes % (Manual) Eosinophils % (Manual) Basophils % (Manual) Metamyelocytes % (Man) Myelocytes % (Man) Promyelocytes % (Man) Blast Cells % (Manual) Plasma Cell % (Manual) Other Cells % Nucleated RBC % Neutrophils # (Manual) Band Neutrophils # Total Absolute Neuts Lymphocytes # (Manual) Prolymphocyte # Reactive Lymphs # Total Abs Lymphocytes Monocytes # (Manual) Eosinophils # (Manual) Basophils # (Manual) Metamyelocytes # (Man) Myelocytes # (Manual) Promyelocytes # (Man) Blast Cells # (Man) Plasma Cell # (Manual) Other Cells # Nucleated RBCs # (Man) Hypersegmented Neuts Hyposegmented Neuts Hypogranular Neuts Large Granular Lymphs # Lrg Granular Lymphs Hairy Cells Smudge Cells Toxic Granulation Toxic Vacuolation Dohle Bodies Promise Rods Platelet Estimate Hypogranular Platelets Clumped Platelets Giant Platelets Platelet Satelliting RBC Morphology Polychromasia Hypochromasia Poikilocytosis Basophilic Stippling Anisocytosis Microcytosis Macrocytosis Spherocytes Pappenheimer Bodies Sickle Cells Target Cells Tear Drop Cells Ovalocytes Stomatocytes Marcelino-Bairdford Bodies Echinocytes Acanthocytes (Spur) Rouleaux RBC Agglutinates Schistocytes Sezary Cell POC Sodium 137 (135-144) mmol/L Sodium POC Potassium 6.4 H* (3.3-5.0) mmol/L Potassium POC Chloride 105 (101-112) mmol/L Chloride Carbon Dioxide POC Total CO2 23 L (24-31) mmol/L Anion Gap POC Anion Gap 16.0 (16-25) mmol/L POC BUN 27 H (7-18) mg/dl BUN Creatinine POC Creatinine 1.1 (0.6-1.3) mg/dl Est Cr Clr Drug Dosing Est GFR ( Amer) Est GFR (Non-Af Amer) BUN/Creatinine Ratio Glucose POC Glucose (70-99) mg/dl POC Glucose (other) 329 H (70-99) mg/dl Calcium POC Ioniz Calcium Crystal 0.98 L (1.12-1.32) mmol/l Phosphorus Magnesium Total Bilirubin Direct Bilirubin (0-0.2) mg/dl AST ALT Alkaline Phosphatase Troponin I High Sens Total Protein Albumin Globulin Albumin/Globulin Ratio Lipase TSH Free T4 (0.61-1.60) ng/dl SARS-CoV-2, RNA, NAAT NEGATIVE (NEGATIVE) Blood Parasites ID 07/29/22 07/29/22 07/29/22 Range/Units 19:49 19:49 19:43 WBC RBC Hgb POC Hgb (14.0-18.0) g/dl Hct POC Hct (42-52) % MCV MCH MCHC RDW Std Deviation RDW Coeff of Stefanie Plt Count MPV Immature Gran % (Auto) Neut % (Auto) Lymph % (Auto) Bill[place] % (Auto) Eos % (Auto) Baso % (Auto) Neut # (Auto) Lymph # (Auto) [place] # (Auto) Eos # (Auto) Baso # (Auto) Immature Gran # (Auto) Absolute Nucleated RBC Nucleated RBC % (auto) Neutrophils % (Manual) Band Neutrophils % Lymphocytes % (Manual) Prolymphocyte % Reactive Lymphs % (Man) Monocytes % (Manual) Eosinophils % (Manual) Basophils % (Manual) Metamyelocytes % (Man) Myelocytes % (Man) Promyelocytes % (Man) Blast Cells % (Manual) Plasma Cell % (Manual) Other Cells % Nucleated RBC % Neutrophils # (Manual) Band Neutrophils # Total Absolute Neuts Lymphocytes # (Manual) Prolymphocyte # Reactive Lymphs # Total Abs Lymphocytes Monocytes # (Manual) Eosinophils # (Manual) Basophils # (Manual) Metamyelocytes # (Man) Myelocytes # (Manual) Promyelocytes # (Man) Blast Cells # (Man) Plasma Cell # (Manual) Other Cells # Nucleated RBCs # (Man) Hypersegmented Neuts Hyposegmented Neuts Hypogranular Neuts Large Granular Lymphs # Lrg Granular Lymphs Hairy Cells Smudge Cells Toxic Granulation Toxic Vacuolation Dohle Bodies Promise Rods Platelet Estimate Hypogranular Platelets Clumped Platelets Giant Platelets Platelet Satelliting RBC Morphology Polychromasia Hypochromasia Poikilocytosis Basophilic Stippling Anisocytosis Microcytosis Macrocytosis Spherocytes Pappenheimer Bodies Sickle Cells Target Cells Tear Drop Cells Ovalocytes Stomatocytes Marcelino-Bairdford Bodies Echinocytes Acanthocytes (Spur) Rouleaux RBC Agglutinates Schistocytes Sezary Cell POC Sodium (135-144) mmol/L Sodium 137 POC Potassium (3.3-5.0) mmol/L Potassium 4.1 POC Chloride (101-112) mmol/L Chloride 108 H Carbon Dioxide 21 POC Total CO2 (24-31) mmol/L Anion Gap 8 POC Anion Gap (16-25) mmol/L POC BUN (7-18) mg/dl BUN 18 Creatinine 1.10 POC Creatinine (0.6-1.3) mg/dl Est Cr Clr Drug Dosing 64.7 Est GFR ( Amer) 77.3 Est GFR (Non-Af Amer) 66.7 BUN/Creatinine Ratio 16.4 Glucose 319 H* POC Glucose 348 H* (70-99) mg/dl POC Glucose (other) (70-99) mg/dl Calcium 7.2 L POC Ioniz Calcium Crystal (1.12-1.32) mmol/l Phosphorus 3.1 Magnesium 1.9 Total Bilirubin 0.5 Direct Bilirubin (0-0.2) mg/dl AST 16 ALT 17 Alkaline Phosphatase 98 Troponin I High Sens 8.9 Total Protein 5.0 L Albumin 3.1 L Globulin 1.9 L Albumin/Globulin Ratio 1.6 Lipase 18 TSH 6.438 H Free T4 1.20 (0.61-1.60) ng/dl SARS-CoV-2, RNA, NAAT (NEGATIVE) Blood Parasites ID 07/29/22 07/29/22 07/29/22 Range/Units 19:42 19:27 19:27 WBC RBC Hgb POC Hgb (14.0-18.0) g/dl Hct POC Hct (42-52) % MCV MCH MCHC RDW Std Deviation RDW Coeff of Stefanie Plt Count MPV Immature Gran % (Auto) Neut % (Auto) Lymph % (Auto) Bill[place] % (Auto) Eos % (Auto) Baso % (Auto) Neut # (Auto) Lymph # (Auto) [place] # (Auto) Eos # (Auto) Baso # (Auto) Immature Gran # (Auto) Absolute Nucleated RBC Nucleated RBC % (auto) Neutrophils % (Manual) Band Neutrophils % Lymphocytes % (Manual) Prolymphocyte % Reactive Lymphs % (Man) Monocytes % (Manual) Eosinophils % (Manual) Basophils % (Manual) Metamyelocytes % (Man) Myelocytes % (Man) Promyelocytes % (Man) Blast Cells % (Manual) Plasma Cell % (Manual) Other Cells % Nucleated RBC % Neutrophils # (Manual) Band Neutrophils # Total Absolute Neuts Lymphocytes # (Manual) Prolymphocyte # Reactive Lymphs # Total Abs Lymphocytes Monocytes # (Manual) Eosinophils # (Manual) Basophils # (Manual) Metamyelocytes # (Man) Myelocytes # (Manual) Promyelocytes # (Man) Blast Cells # (Man) Plasma Cell # (Manual) Other Cells # Nucleated RBCs # (Man) Hypersegmented Neuts Hyposegmented Neuts Hypogranular Neuts Large Granular Lymphs # Lrg Granular Lymphs Hairy Cells Smudge Cells Toxic Granulation Toxic Vacuolation Dohle Bodies Promise Rods Platelet Estimate Hypogranular Platelets Clumped Platelets Giant Platelets Platelet Satelliting RBC Morphology Polychromasia Hypochromasia Poikilocytosis Basophilic Stippling Anisocytosis Microcytosis Macrocytosis Spherocytes Pappenheimer Bodies Sickle Cells Target Cells Tear Drop Cells Ovalocytes Stomatocytes Marcelino-Bairdford Bodies Echinocytes Acanthocytes (Spur) Rouleaux RBC Agglutinates Schistocytes Sezary Cell POC Sodium (135-144) mmol/L Sodium Cancelled POC Potassium (3.3-5.0) mmol/L Potassium Cancelled POC Chloride (101-112) mmol/L Chloride Cancelled Carbon Dioxide Cancelled POC Total CO2 (24-31) mmol/L Anion Gap Cancelled POC Anion Gap (16-25) mmol/L POC BUN (7-18) mg/dl BUN Cancelled Creatinine Cancelled POC Creatinine (0.6-1.3) mg/dl Est Cr Clr Drug Dosing Cancelled Est GFR ( Amer) Cancelled Est GFR (Non-Af Amer) Cancelled BUN/Creatinine Ratio Cancelled Glucose Cancelled POC Glucose 341 H* (70-99) mg/dl POC Glucose (other) (70-99) mg/dl Calcium Cancelled POC Ioniz Calcium Crystal (1.12-1.32) mmol/l Phosphorus Cancelled Magnesium Cancelled Total Bilirubin Cancelled Direct Bilirubin (0-0.2) mg/dl AST Cancelled ALT Cancelled Alkaline Phosphatase Cancelled Troponin I High Sens Cancelled Total Protein Cancelled Albumin Cancelled Globulin Cancelled Albumin/Globulin Ratio Cancelled Lipase Cancelled TSH Cancelled Free T4 (0.61-1.60) ng/dl SARS-CoV-2, RNA, NAAT (NEGATIVE) Blood Parasites ID 07/29/22 Range/Units 19:27 WBC Cancelled RBC Cancelled Hgb Cancelled POC Hgb (14.0-18.0) g/dl Hct Cancelled POC Hct (42-52) % MCV Cancelled MCH Cancelled MCHC Cancelled RDW Std Deviation Cancelled RDW Coeff of Stefanie Cancelled Plt Count Cancelled MPV Cancelled Immature Gran % (Auto) Cancelled Neut % (Auto) Cancelled Lymph % (Auto) Cancelled Bill[place] % (Auto) Cancelled Eos % (Auto) Cancelled Baso % (Auto) Cancelled Neut # (Auto) Cancelled Lymph # (Auto) Cancelled Bill[place] # (Auto) Cancelled Eos # (Auto) Cancelled Baso # (Auto) Cancelled Immature Gran # (Auto) Cancelled Absolute Nucleated RBC Cancelled Nucleated RBC % (auto) Cancelled Neutrophils % (Manual) Cancelled Band Neutrophils % Cancelled Lymphocytes % (Manual) Cancelled Prolymphocyte % Cancelled Reactive Lymphs % (Man) Cancelled Monocytes % (Manual) Cancelled Eosinophils % (Manual) Cancelled Basophils % (Manual) Cancelled Metamyelocytes % (Man) Cancelled Myelocytes % (Man) Cancelled Promyelocytes % (Man) Cancelled Blast Cells % (Manual) Cancelled Plasma Cell % (Manual) Cancelled Other Cells % Cancelled Nucleated RBC % Cancelled Neutrophils # (Manual) Cancelled Band Neutrophils # Cancelled Total Absolute Neuts Cancelled Lymphocytes # (Manual) Cancelled Prolymphocyte # Cancelled Reactive Lymphs # Cancelled Total Abs Lymphocytes Cancelled Monocytes # (Manual) Cancelled Eosinophils # (Manual) Cancelled Basophils # (Manual) Cancelled Metamyelocytes # (Man) Cancelled Myelocytes # (Manual) Cancelled Promyelocytes # (Man) Cancelled Blast Cells # (Man) Cancelled Plasma Cell # (Manual) Cancelled Other Cells # Cancelled Nucleated RBCs # (Man) Cancelled Hypersegmented Neuts Cancelled Hyposegmented Neuts Cancelled Hypogranular Neuts Cancelled Large Granular Lymphs Cancelled # Lrg Granular Lymphs Cancelled Hairy Cells Cancelled Smudge Cells Cancelled Toxic Granulation Cancelled Toxic Vacuolation Cancelled Dohle Bodies Cancelled Promise Rods Cancelled Platelet Estimate Cancelled Hypogranular Platelets Cancelled Clumped Platelets Cancelled Giant Platelets Cancelled Platelet Satelliting Cancelled RBC Morphology Cancelled Polychromasia Cancelled Hypochromasia Cancelled Poikilocytosis Cancelled Basophilic Stippling Cancelled Anisocytosis Cancelled Microcytosis Cancelled Macrocytosis Cancelled Spherocytes Cancelled Pappenheimer Bodies Cancelled Sickle Cells Cancelled Target Cells Cancelled Tear Drop Cells Cancelled Ovalocytes Cancelled Stomatocytes Cancelled Marcelino-Bairdford Bodies Cancelled Echinocytes Cancelled Acanthocytes (Spur) Cancelled Rouleaux Cancelled RBC Agglutinates Cancelled Schistocytes Cancelled Sezary Cell Cancelled POC Sodium (135-144) mmol/L Sodium POC Potassium (3.3-5.0) mmol/L Potassium POC Chloride (101-112) mmol/L Chloride Carbon Dioxide POC Total CO2 (24-31) mmol/L Anion Gap POC Anion Gap (16-25) mmol/L POC BUN (7-18) mg/dl BUN Creatinine POC Creatinine (0.6-1.3) mg/dl Est Cr Clr Drug Dosing Est GFR ( Amer) Est GFR (Non-Af Amer) BUN/Creatinine Ratio Glucose POC Glucose (70-99) mg/dl POC Glucose (other) (70-99) mg/dl Calcium POC Ioniz Calcium Crystal (1.12-1.32) mmol/l Phosphorus Magnesium Total Bilirubin Direct Bilirubin (0-0.2) mg/dl AST ALT Alkaline Phosphatase Troponin I High Sens Total Protein Albumin Globulin Albumin/Globulin Ratio Lipase TSH Free T4 (0.61-1.60) ng/dl SARS-CoV-2, RNA, NAAT (NEGATIVE) Blood Parasites ID Cancelled PG Care Time/CCT Total # of Minutes Spent Total Time Spent with Patient: Total time spent is greater than 50% in coordination of care (as documented) at patient's floor/unit and/or counseling patient: Coding Level of Care Code 74894 Subseq Hosp Care Lvl 3 Diagnoses SVT (supraventricular tachycardia) I47.1 Atrial fibrillation I48.91 Syncope R55 Nonischemic cardiomyopathy I42.8 HLD (hyperlipidemia) E78.5 Hypertension I10 BPH with obstruction/lower urinary tract symptoms N40.1; N13.8 GERD (gastroesophageal reflux disease) K21.9
[2022-07-30] MEDS: MIRTAZAPINE TAB 15 MG TAB PO SCH (20:17)
[2022-07-30] MEDS: TAMSULOSIN HCL 0.4 MG CAP PO SCH (20:20)
[2022-07-30] MEDS ORDERED: TAMSULOSIN HCL 0.4 MG CAP PO SCH (21:00)
[2022-07-30] MEDS ORDERED: MIRTAZAPINE TAB 15 MG TAB PO SCH (21:00)
--- NOTE | 2022-07-31 01:17 | Emergency Department Note ---
Pre Sedation Assessment Vital Signs HR 230 BP 71/52 Cardiovascular RRR, no murmur, no edema + tachycardic + S1 normal and + S2 normal + PMI normal no JVD no pedal edema Respiratory normal respiratory effort, lungs clear to auscultation + respiratory effort normal; no respiratory distress and no labored breathing + clear to auscultation bilaterally Pre-Sedation Airway Assessment Smoking Status: Never smoker Hx Sleep Apnea: No Hx Difficult Intubation: No Mallampati Class: II ASA: ASA3 Notes Emergent verbal consent obtained for sedation and cardioversion given unstable vital signs with obvious dysrhythmia. Son at bedside also verbalized understanding and was in agreement.
--- NOTE | 2022-07-31 01:19 | Emergency Department Note ---
Post Sedation Assessment Recovery Score Activity: Moves 4 extremities Respiration: Deep Breath/Cough Circulation: +/-20% PreAnes Value Consciousness: Fully Awake Oxygen Saturation: > 92% On Room Air Discharge Sedation Level of Care: Phase I Post Sedation Plan On clinical assessment, the patient appears to have tolerated the sedation without complications. Patient is recovering as anticipated. Patient will continue to be monitored by nursing and may be discharged when sedation discharge criteria are met per below protocol. Upon Completions of procedure up to 15 minutes continue every 5 minute vital signs and the P.A.R. score; then discharge to a Phase I or Fast Track to Phase II per the following guidelines: * Discharge Patient to appropriate Phase II area if PAR is 8 or greater or return to pre- procedure baseline. The post - procedure orders will be as directed. * If PAR score is less than 8 or not return to pre-procedure baseline then patient will follow Phase I monitoring till PAR is reached for Phase II. The Phase I may be done in procedure room or may call to secure a Phase I area. * If naloxone or flumazenil are used for reversal, hold in Phase I for continued monitoring from when last reversal dose was given for a minimum of 60 minutes or longer pending the nurse and/or physician discretion of patient condition before discharge to Phase II. Please call the Sedation Physician to re-evaluate and complete post-note for discharge to Phase II area. Do NOT discharge from procedure sedation or Phase 1 until post- sedation evaluation note is complete by procedure /sedation MD Sedation Discharge Instructions to be given to the patient at discharge to home. Sedation Data Time Out Team Members Agree on the Following: Correct Patient and Correct Procedure Sedation Times Sedation Start Date: 07/29/22 Sedation Start Time: 19:30 Sedation End Date: 07/29/22 Sedation End Time: 19:58 Total Sedation Time: 28 Procedure Times Procedure Start Time:: 19:30 Procedure End Time: 19:33
[2022-07-31] MEDS: APIXABAN 5 MG TABLET PO SCH (08:38)
[2022-07-31] MEDS: FINASTERIDE 5 MG TAB PO SCH (08:38)
[2022-07-31] MEDS: VALSARTAN/SACUBITRIL 103/97MG TAB PO SCH (08:38)
[2022-07-31] MEDS: ATORVASTATIN 40 MG TAB PO SCH (08:38)
[2022-07-31] MEDS: carvediloL 25 MG TAB PO SCH (08:38)
[2022-07-31] MEDS: FLECAINIDE ACETATE 100 MG TABLET PO SCH (08:38)
[2022-07-31] MEDS: OXYBUTYNIN CHLORIDE XL 5 MG TABCR PO SCH (08:38)
[2022-07-31] MEDS: PANTOprazole 40 MG TAB PO SCH (08:39)
[2022-07-31 11:33] LABS: BUN Creatinine Ratio 16.5 (10-20); Calcium 8.5 mg/dl (8.5-10.1); Est GFR (African American) 96.6 ml/min; Est GFR (Non-African American) 83.3 ml/min; Magnesium 2.1 mg/dl (1.7-2.4); Potassium 3.6 mmol/L (3.5-5.1)
[2022-07-31] MEDS ORDERED: POTASSIUM CHLORIDE CRTAB 20 MEQ TABCR PO STA (12:03)
--- NOTE | 2022-07-31 12:57 | Discharge Summary ---
Date of Service July 31, 2022 Admission HPI Per Admitting Provider Brando Badillo is a pleasant 72-year-old male with history of nonischemic cardiomyopathy with recovered EF, newly diagnosed atrial fibrillation approximately 1 month ago on Eliquis anticoagulation, hypertension, h yperlipidemia, GERD presenting with episode of tachyarrhythmia at home. Patient was in his usual state of health until this evening at 1820 when he had a syncopal event. He had elevated heart rate over 220 while at home with associated chest discomfort and tightness, shortness of breath and dizziness. EMS was called and patient was found to be in atrial fibrillation with a heart rate of [id number]. Patient's blood pressure was initially preserved then decreased. He was administered IV fluids by EMS. Upon arrival to the ER patient with rate of 231 bpm, blood pressure 71/52, respiratory rate of 29 saturating 99% on 15 L of oxygen by nonrebreather. Consent was obtained by ER physician and patient had synchronized cardioversion with 200 J with return to rate controlled atrial fibrillation. During my encounter, patient complaining of feeling tired. He denies further chest pain but still has some shortness of breath. Patient follows with cardiology, Dr. Del Cid. Last seen on 07/03/2022. He had a Holter monitor in the past which revealed frequent PVCsno atrial fibrillation and 2 episodes of SVT. Patient had a similar presentation while in [facility] where he presented with SVT. He was administered adenosine and ultimately received DC cardioversion with return to rate controlled atrial fibrillation. At that time he had significant hypokalemia which was treated. Records from this visit have been scanned into [employer] 06/22/2022. ER course: Midazolam 1 mg, fentanyl 50 mcg, D50 x1 amp (given because initial i- STAT showed severe hypoglycemia which in turn turned out to be a false read), normal saline x2 L, magnesium sulfate x1 g, calcium gluconate x1 g Principal Diagnosis SVT, Rapid atrial fibrillation, Syncope Discharge Exam Constitutional WD/WN, vitals as above ENMT external ear and nose normal, oropharynx normal Neck trachea midline, no thyromegaly Respiratory normal respiratory effort, lungs clear to auscultation Cardiovascular RRR, no murmur, no edema Chest (Breasts) Chest: normal inspection of chest Gastrointestinal (Abdomen) normal bowel sounds, soft, nontender, no hepatosplenomegaly Musculoskeletal Extremities: extremities normal to inspection; no cyanosis and no clubbing Skin no rashes, warm and dry Neurologic moves all extremities and awake; no focal motor deficits Psychiatric A+Ox3, euthymic affect Lymphatic no lymphedema Discharge Data Allergies Allergy/AdvReac Type Severity Reaction Status Date / Time No Known Allergies Allergy Verified 08/03/22 23:58 Consultations 07/29/22 22:05 ED Decision to Admit Stat 07/29/22 22:57 Consult Cardiology Routine Ordered Studies 07/29/22 20:26 CT angio chest dissec wo/w con Urgent ECHO Hospital Course (1) SVT (supraventricular tachycardia): 72-year-old male with history of hypertension, hyperlipidemia and nonischemic cardiomyopathy/CHF with resolved ejection fraction presenting with unstable tachyarrhythmia, heart rate in the 230s while at home with an episode of syncope. Patient unstable upon arrival with substernal chest discomfort, shortness of breath and systolic blood pressure in the 70s. He was medicated with midazolam and fentanyl and received synchronized cardioversion with 200 J and subsequent return to rate controlled atrial fibrillation. Patient is anticoagulated on apixaban. Had similar presentation at a hospital in [facility] in June. Patient cardioverted with return to A. fib. Also found to be profoundly hypokalemic which was repleted. Since that time he has been taking oral magnesium as well as potassium and trying to drink Gatorade more frequently for electrolytes. Patient is compliant with his medications. -presented with SVT and syncope, unstable and had urgent DCCV in ER with return to Afib and then back to NSR later This is second time he required urgent CV in the last month for similar ECHO with mildly reduced EF, anterior wall motion abnormality Appreciate Cardio consult--eval for EP study needed-is to be arranged as an outpatient started flecainide as an antiarrhythmic No further episodes of SVT or Afib on tele after admission for 48 hrs will- keep lytes optimized-Rx KCl 20 meq po daily on discharge (was taking OTC KCl which was equivalent of only 2.5 meq daily) -continue ELiquis for afib -continue Coreg -f/u with Dr. Del Cid for EP study and possible ablation as outpt (2) Atrial fibrillation: Patient with newly diagnosed atrial fibrillation approximately 1 month ago. Continue carvedilol Continue apixaban -started on flecainide as above (3) Syncope: as above, 2/2 unstable tachyarrhythmia, hypotension advised no driving (4) Nonischemic cardiomyopathy: Patient with history of nonischemic cardiomyopathy diagnosed several years ago. Prior EF of 50%. Most recent echo performed in [facility] on June 21, 2022 with EF of 57%, normal LV size and function, mildly enlarged left atrial volume and inferior basilar wall hypokinesis. ECHO here as above Continue Entresto 1 tab p.o. twice daily Continue carvedilol 25 mg p.o. twice daily Cardiology consultation appreciated (5) HLD (hyperlipidemia): Chronic. Stable. Continue atorvastatin 40 mg p.o. every morning (6) Hypertension: Initially with hypotension in setting of unstable arrhythmia status post DC cardioversion with return to atrial fibrillation. Blood pressure now normal Continue carvedilol 25 mg p.o. 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 Stable. Continue Flomax 0.4 mg p.o. nightly Continue finasteride 5 mg p.o. every morning Continue oxybutynin 5 mg p.o. every morning -f/u with Urology as outpt (8) GERD (gastroesophageal reflux disease): . Well-controlled with medications Continue Protonix 40 mg p.o. twice daily Insomniapatient was previously on trazodone which was discontinued during hospitalization and [facility] due to prolonged QT interval. Prophylaxisanticoagulated with apixaban Codefull per discussion with patient Dispositiondc to home Total Time Total Time Spent Total Time Spent (In Minutes): 45 min Total Time Includes: Examination of the Patient, Discharge Planning, Medication Reconciliation and Communication With Other Providers (Cardiology) Discharge Plan Discharge Items Patient Disposition: Home - Self-Care Reason For Visit: RAPID ATRIAL FIBRILLATION Discharge Diagnosis: SVT, Rapid atrial fibrillation, Syncope Activity: As commented below Bathing: No limitations Exercise/Sports: As tolerated Driving/Machine Use: No driving Non-emergency contact: Primary Care Provider Call non-emergency contact if: you have any medication questions and your symptoms worsen Follow-up/Referrals: Parag Del Cid MD [Physician] - (Follow up as directed by Dr. Del Cid) Huyen Villa MD [Primary Care Provider] - 08/08/22 12:15 pm (Follow up within 1-2 weeks. With Faby Kuhn) Diet: Heart Healthy and Low Sodium (2gm) Addtl Attending Provider Instructions: You were admitted after passing out from SVT (a heart arrhythmia). You required urgent electrical cardioversion to get your heart back to a normal rhythm. You were started on a medication called flecainide to keep this from happening again, but you may need an Electrophysiologic study to see if there is a more permanent treatment surgically to fix your problem to prevent it from happening again. Your potassium levels to tend to run in the low-normal range and in order to optimize this to prevent arrhythmias, you will be started on a potassium supplement daily. You should also ask your PCP about getting a formal sleep study done to rule out obstructive sleep apnea. This can predispose you to getting atrial fibrillation. Pending Studies at Discharge: No Stand-Alone Forms: My [facility], Smoking Cessation Medications and DC Order Prescriptions: New flecainide 50 mg tablet 50 mg PO Q12H Qty: 60 0RF potassium chloride 20 mEq tablet extended release 20 meq PO DAILY Qty: 30 0RF Continued hyoscyamine sulfate 0.125 mg tablet 0.125 mg PO HS PRN (Reason: abdominal pain) Qty: 90 3RF pantoprazole 40 mg tablet,delayed release (DR/EC) 40 mg PO BID Qty: 180 4RF atorvastatin 40 mg tablet 40 mg PO QAM Qty: 90 3RF carvedilol 25 mg tablet 25 mg PO BID Qty: 180 3RF Rx Instructions: must administer with a meal/food Entresto 97-103 mg tablet 1 tab PO BID Qty: 180 3RF mirtazapine 7.5 mg tablet 7.5 mg PO DAILY Qty: 90 2RF magnesium 200 mg tablet 200 mg PO DAILY tamsulosin 0.4 mg capsule 0.4 mg PO HS diphenhydramine-acetaminophen [Tylenol PM Extra Strength] 25-500 mg Tablet 1 tab PO HS amlodipine 5 mg tablet 5 mg PO HS oxybutynin chloride 5 mg tablet extended release 24 hr 5 mg PO QAM finasteride 5 mg tablet 5 mg PO QAM Myrbetriq 50 mg tablet extended release 24 hr 50 mg PO QAM Discontinued potassium 99 mg Tablet 99 mg PO BID No Action apixaban 5 mg tablet 5 mg PO BID Qty: 180 3RF Discharge Orders: Discharge Order (Routine); Ordered 07/31/22 Ordered By: Allison Chaves Admission Data Admit Date/Time: 07/29/22 22:16 Attending Provider: Allison Chaves Admit Provider: Natividad Calvillo Primary Care Provider: Huyen Villa Other Providers: Natividad Calvillo ; Maxx Olivo Other Interventions: Discharge Summary Assessment (RN) Last Done: 07/31/22 13:02 Coding Level of Care Code D/C DAY MANAGEMENT >30 MINS Diagnoses SVT (supraventricular tachycardia) I47.1 Atrial fibrillation I48.91 Syncope R55 Nonischemic cardiomyopathy I42.8 HLD (hyperlipidemia) E78.5 Hypertension I10 BPH with obstruction/lower urinary tract symptoms N40.1; N13.8 GERD (gastroesophageal reflux disease) K21.9
== END 2022-07-31 17:27 | disposition home or self-care (01) | DRG 309 ==
LOC: ED 19:12 → SUATTDRO 22:16 → 4W 22:16
DX: Z79.01 Long term (current) use of anticoagulants; E87.6 Hypokalemia; N40.1 Benign prostatic hyperplasia with lower urinary tract symptoms; Z79.1 Long term (current) use of non-steroidal anti-inflammatories (NSAID); G47.00 Insomnia, unspecified; I50.20 Unspecified systolic (congestive) heart failure; I11.0 Hypertensive heart disease with heart failure; R55 Syncope and collapse; K21.9 Gastro-esophageal reflux disease without esophagitis; I42.8 Other cardiomyopathies; G47.33 Obstructive sleep apnea (adult) (pediatric); Z79.899 Other long term (current) drug therapy; I48.91 Unspecified atrial fibrillation; I95.89 Other hypotension; E78.5 Hyperlipidemia, unspecified; I47.1 Supraventricular tachycardia; I25.2 Old myocardial infarction

== ENCOUNTER 2022-08-18 16:40 | Observation (INO) ==
[2022-08-18 18:22] LABS: Basophils # (auto) 0.02 K/uL (0-0.2); Basophils % (auto) 0.3 %; Eosinophils # (auto) 0.15 K/uL (0-0.50); Eosinophils % (auto) 2.3 %; Hemoglobin 14.8 g/dl (14.0-18.0); Immature Granulocytes # (auto) 0.01 K/uL (0.00-0.02); Immature Granulocytes % (auto) 0.2 %; Lymphocytes # (auto) 1.57 K/uL (1.2-3.4); Mean Corpuscular Hemoglobin 30.8 pg (25.0-34.0); Mean Corpuscular Hgb Conc 35.2 g/dL (32.0-36.0); Mean Corpuscular Volume 87.3 fL (80.0-100.0); Monocytes # (auto) 0.62 K/uL (0.24-0.82); Monocytes % (auto) 9.5 %; Neutrophils # (auto) 4.18 K/uL (1.4-6.5); Neutrophils % (auto) 63.7 %; Platelet Count 185 K/uL (130-400); RDW Coefficient of Variation 12.9 % (11.5-14.5); RDW Standard Deviation 41.2 fL (36.4-46.3); Red Blood Count 4.81 M/uL (4.63-6.08); White Blood Count 6.55 K/ul (4.8-10.8)
[2022-08-18 18:33] LABS: Albumin Globulin Ratio 1.2 (0.9-2); Albumin Level 4.1 gm/dl (3.4-5.0); BUN Creatinine Ratio 20.5 (10-20); Bilirubin,Total 0.5 mg/dl (0.2-1.0); Creatinine Clr Calc Pharmacy 79.6 ml/min; Est GFR (African American) 98.8 ml/min; Est GFR (Non-African American) 85.2 ml/min; Globulin 3.3 gm/dl (2.5-4.0); Potassium 3.8 mmol/L (3.5-5.1); Total Protein 7.4 gm/dl (6.0-8.3)
[2022-08-18 18:39] LABS: Partial Thromboplastin Ratio 1.2; Partial Thromboplastin Time 31.7 Seconds (21.0-31.0); Prothrombin Time 10.5 Seconds (9.0-12.0)
[2022-08-18 18:50] LABS: Troponin I High Sensitivity 7.8 pg/ml (0-20)
--- NOTE | 2022-08-18 19:18 | Emergency Department Note ---
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 Patient with a 1 month history of issues with tachycardia. He has been cardioverted twice in the last month for SVT. He has plans to follow-up with Briseyda however this week while going on a walk he developed palpitations significant shortness of breath and fatigue. Apple watch at that time did capture arrhythmia. This was reviewed by his PCP and cosmetic sales today who noted that this is highly concerning for ventricular tachycardia and he was sent to the ER for evaluation. On my evaluation patient is calm cooperative no distress. He is not in any tachycardia at the moment. Labs are unremarkable and her troponin is negative. There is no evidence that he is having cardiac ischemia nor is he currently in V. tach. I discussed the case over the phone with Dr. Del Cid who already knows him well. Plan is to hospitalize on monitor overnight, stop the flecainide given the risks of causing V. tach and in morning determine best course of action whether ICD, vest, medication changes. Hospitalist in to evaluate further. Patient has a current shortness of breath or chest pain. Symptoms not consistent with dissection. His medications include Eliquis and with unremarkable vitals I do not feel this is consistent with PE. No evidence of cardiac ischemia. No evidence of infectious etiology at this time either. El ectrolytes stable Prior Medical Record and Triage/Nursing Notes reviewed by Me Additional history obtained from Dr. Del Cid of cardiology Differentials:Premature contractions, electrolyte abnormality, cardiac dysrhythmia, thyroid dysfunction, pulmonary embolism, infection, gastrointestinal, as well as other pathologies. Vital Signs: reviewed and remarkable for no significant abnormalities Labs:Reviewed and remarkable for no significant abnormalities EKG:Indication palpitations. As per my interpretation. Sinus bradycardia at 51 bpm and a QTC of 423. There is no ectopy nor ischemia. There is an intraventricular delay likely right bundle branch block. When compared to EKG from August 03, 2022 the heart rate has decreased but otherwise morphology is similar. Consults:Dr. Del Cid of [facility] cardiology, [facility] Plan: Disposition:Hospitalization. Condition: Good History of Present Illness:72-year-old gentleman arrives for evaluation of arrhythmia. Patient notes that 3 days ago he noted palpitations while going on a walk. This lasted about 20 minutes. He states he felt quite fatigued and short of breath during this. His apple watch showed a tachycardia. He showed the tachycardia to his PCP today who started to a cosmetic sales who advised to come directly to the ER. Patient states he has been feeling tired for the last 2 weeks. He relates this is secondary to having started flecainide after another tacky arrhythmia that required cardioversion. Patient states that he has been dealing with SVT and the plan is to get an ablation at [place] in the next week or 2. He denies any current chest pain, syncope, nausea, vomiting, fevers, chills, shortness of breath, back pain, tia pain or any other concerning signs or symptoms. He has had no recent strokelike symptoms. He is on Eliquis. No recent falls or head injuries. Denies any headache. No change to his medications since this event. He took no medications prior to arrival other than his daily medications. Nothing makes better or worse. ROS: See above HPI for pertinent positives & negatives. A total of 10 systems reviewed and were otherwise negative. Past Medical History:See Below Past Surgical History:See Below Family History:See Below Social History:See Below Home Medications:See Below Allergies:See Below Vitals:Blood Pressure: 135/91, Pulse 76, RR 20, T 36.8C, O2 97% on RA Physical Exam: GENERAL: Patient is well appearing and in no acute distress. EYES: No scleral icterus, unremarkable pupils. ENT: Mucous membranes moist, no nasal congestion. NECK: No masses appreciated, nomeningismus, trachea is midline. RESPIRATORY: No dyspnea. Clear to auscultation and equal bilaterally. No wheeze, no rhonchi. CARDIOVASCULAR: Regular rate and rhythm.No murmurs, rubs, gallops appreciated. GASTROINTESTINAL: Abdomen soft, non-tender, no peritonitis.Bowel sounds positive.No masses appreciated. BACK: No midline tenderness, no CVA tenderness EXTREMITIES: Normal motion all extremities, no cyanosis, no edema. NEUROLOGIC: Alert and oriented, no acute motor or sensory deficits, no focal weakness, cranial nerves grossly intact. SKIN: No rash, no jaundice, no diaphoresis. PSYCH: Appropriate GCS: 15 ED Course: Times/Reassessments: Stable no distress no further palpitation or arrhythmia Pierce Brian MD Past Med/Surg History Medical History Barretts esophagus BPH with obstruction/lower urinary tract symptoms Congestive heart failure Diverticular disease GERD (gastroesophageal reflux disease) Herniated nucleus pulposus, lumbar Hiatal hernia History of COVID-19 Hyperlipidemia Hypertension Myocardial Infarction Osteoarthritis PVC's (premature ventricular contractions) SVT (supraventricular tachycardia) Syncope Surgical History History of cardiac cath History of colonoscopy (04/25/21) History of esophagogastroduodenoscopy (EGD) (08/02/20) History of hernia repair History of prostate biopsy History of removal of cyst History of right cataract surgery History of surgical procedure on mouth History of tooth extraction Family History Other No family history of adverse response to anesthesia Denies family history of Ovarian cancer Prostate cancer Breast cancer Lung cancer Colorectal cancer Social History Smoking Status: Former smoker Tobacco Type: Cigarettes Cigarettes Per Day: 1 Pack Highschool; Second Hand Exposure: Yes; Do You Dip or Chew Tobacco: No; Hx Alcohol Use: Yes Alcohol type: beer Hx Substance Use: No Preferred Language: Belarusian Communication Ability: Effective Adult Services Librarian Required: No Beliefs That Will Affect Care: None marital status: Current Living Situation: Spouse current occupational status: retired 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 Feels Safe at Home: Yes caffeine: Yes Dental Care, Regularly: Yes Physical Activity Frequency: Does not Exercise Seatbelt Use: always Sunscreen Use: No Assistive Devices: None Allergies Allergies Allergy/AdvReac Type Severity Reaction Status Date / Time No Known Allergies Allergy Verified 08/18/22 13:46 Home Meds Home Medications Medication Instructions Recorded Confirmed diphenhydramine 25 1 tab PO HS 04/20/21 08/18/22 mg-acetaminophen 500 mg tablet (Tylenol PM Extra Strength) tamsulosin 0.4 mg capsule 0.4 mg PO HS 08/29/21 08/18/22 amlodipine 5 mg tablet 5 mg PO HS 05/17/22 08/18/22 finasteride 5 mg tablet 5 mg PO QAM 05/17/22 08/18/22 mirabegron 50 mg tablet,extended 50 mg PO QAM 05/17/22 08/18/22 release 24 hr (Myrbetriq) oxybutynin chloride 5 mg 5 mg PO QAM 05/17/22 08/18/22 tablet,extended release 24 hr Previous Rx's Medication Instructions Recorded hyoscyamine sulfate 0.125 mg tablet 0.125 mg PO HS PRN abdominal pain 05/05/21 #90 tabs pantoprazole 40 mg tablet,delayed 40 mg PO BID #180 tabs 10/18/21 release atorvastatin 40 mg tablet 40 mg PO QAM #90 tabs 01/16/22 carvedilol 25 mg tablet 25 mg PO BID #180 tabs 04/14/22 sacubitril 97 mg-valsartan 103 mg 1 tab PO BID #180 tabs 04/14/22 tablet (Entresto) mirtazapine 7.5 mg tablet 7.5 mg PO DAILY #90 tabs 07/25/22 apixaban 5 mg tablet 5 mg PO BID #180 tabs 08/03/22 potassium chloride 20 mEq 20 meq PO DAILY #90 tabs 08/09/22 tablet,extended release flecainide 50 mg tablet 50 mg PO Q12H #180 tabs 08/17/22 Results & Data (ED) Vital Signs Vital Signs - 24 hr 08/18/22 16:40 08/18/22 19:45 08/18/22 20:00 Temperature 36.8 C Temperature Source Temporal Artery Scan Pulse Rate 76 71 Pulse Rate [Apical] 76 Pulse Rate from SpO2 Sensor 68 Respiratory Rate 20 18 13 Respiratory Effort / Characteristics Non-Labored Respiratory Depth Normal Blood Pressure 135/91 Blood Pressure [Right Arm] 160/88 H Blood Pressure Mean 105 Blood Pressure Mean [Right Arm] 112 Pulse Oximetry 97 98 95 Oxygen Delivery Method Room Air Room Air Sepsis Recent Fever Within 48 Hours No Sepsis New/Unexplained Change in Mental Status N/A Sepsis Action Taken by Nursing No Action Required 09/30/22 20:30 Temperature Temperature Source Pulse Rate 81 Pulse Rate [Apical] Pulse Rate from SpO2 Sensor 84 Respiratory Rate 19 Respiratory Effort / Characteristics Respiratory Depth Blood Pressure 161/103 H Blood Pressure [Right Arm] Blood Pressure Mean 122 Blood Pressure Mean [Right Arm] Pulse Oximetry 95 Oxygen Delivery Method Sepsis Recent Fever Within 48 Hours Sepsis New/Unexplained Change in Mental Status Sepsis Action Taken by Nursing Laboratory Data Result diagrams: 08/18/22 17:55 08/18/22 17:55 Lab Results 08/18/22 08/18/22 08/18/22 Range/Units 17:55 17:55 17:55 WBC 6.55 (4.8-10.8) K/ul RBC 4.81 (4.63-6.08) M/uL Hgb 14.8 (14.0-18.0) g/dl Hct 42.0 (40.1-51.0) % MCV 87.3 (80.0-100.0) fL MCH 30.8 (25.0-34.0) pg MCHC 35.2 (32.0-36.0) g/dL RDW Std Deviation 41.2 (36.4-46.3) fL RDW Coeff of Stefanie 12.9 (11.5-14.5) % Plt Count 185 (130-400) K/uL MPV 10.0 (9.4-12.4) fL Immature Gran % (Auto) 0.2 % Neut % (Auto) 63.7 % Lymph % (Auto) 24.0 % Montague % (Auto) 9.5 % Eos % (Auto) 2.3 % Baso % (Auto) 0.3 % Neut # (Auto) 4.18 (1.4-6.5) K/uL Lymph # (Auto) 1.57 (1.2-3.4) K/uL Montague # (Auto) 0.62 (0.24-0.82) K/uL Eos # (Auto) 0.15 (0-0.50) K/uL Baso # (Auto) 0.02 (0-0.2) K/uL Immature Gran # (Auto) 0.01 (0.00-0.02) K/uL PT 10.5 (9.0-12.0) Seconds INR 1.0 (0.9-1.1) APTT 31.7 H (21.0-31.0) Seconds PTT Ratio 1.2 Sodium 137 (136-145) mmol/L Potassium 3.8 (3.5-5.1) mmol/L Chloride 106 (98-107) mmol/L Carbon Dioxide 25 (21-32) mmol/L Anion Gap 6 (3-11) BUN 18 (6-23) mg/dl Creatinine 0.88 (0.6-1.4) mg/dl Est Cr Clr Drug Dosing 79.6 ml/min Est GFR ( Amer) 98.8 ml/min Est GFR (Non-Af Amer) 85.2 ml/min BUN/Creatinine Ratio 20.5 H (10-20) Glucose 101 H (70-99(Fasting)) mg/dl Calcium 9.0 (8.5-10.1) mg/dl Total Bilirubin 0.5 (0.2-1.0) mg/dl AST 18 (13-39) U/L ALT 23 (7-52) U/L Alkaline Phosphatase 136 H (34-104) U/L Troponin I High Sens 7.8 D (0-20) pg/ml Total Protein 7.4 (6.0-8.3) gm/dl Albumin 4.1 (3.4-5.0) gm/dl Globulin 3.3 (2.5-4.0) gm/dl Albumin/Globulin Ratio 1.2 (0.9-2) SARS-CoV-2, RNA, NAAT (NEGATIVE) 08/18/22 Range/Units 19:31 WBC (4.8-10.8) K/ul RBC (4.63-6.08) M/uL Hgb (14.0-18.0) g/dl Hct (40.1-51.0) % MCV (80.0-100.0) fL MCH (25.0-34.0) pg MCHC (32.0-36.0) g/dL RDW Std Deviation (36.4-46.3) fL RDW Coeff of Stefanie (11.5-14.5) % Plt Count (130-400) K/uL MPV (9.4-12.4) fL Immature Gran % (Auto) % Neut % (Auto) % Lymph % (Auto) % Montague % (Auto) % Eos % (Auto) % Baso % (Auto) % Neut # (Auto) (1.4-6.5) K/uL Lymph # (Auto) (1.2-3.4) K/uL Montague # (Auto) (0.24-0.82) K/uL Eos # (Auto) (0-0.50) K/uL Baso # (Auto) (0-0.2) K/uL Immature Gran # (Auto) (0.00-0.02) K/uL PT (9.0-12.0) Seconds INR (0.9-1.1) APTT (21.0-31.0) Seconds PTT Ratio Sodium (136-145) mmol/L Potassium (3.5-5.1) mmol/L Chloride (98-107) mmol/L Carbon Dioxide (21-32) mmol/L Anion Gap (3-11) BUN (6-23) mg/dl Creatinine (0.6-1.4) mg/dl Est Cr Clr Drug Dosing ml/min Est GFR ( Amer) ml/min Est GFR (Non-Af Amer) ml/min BUN/Creatinine Ratio (10-20) Glucose (70-99(Fasting)) mg/dl Calcium (8.5-10.1) mg/dl Total Bilirubin (0.2-1.0) mg/dl AST (13-39) U/L ALT (7-52) U/L Alkaline Phosphatase (34-104) U/L Troponin I High Sens (0-20) pg/ml Total Protein (6.0-8.3) gm/dl Albumin (3.4-5.0) gm/dl Globulin (2.5-4.0) gm/dl Albumin/Globulin Ratio (0.9-2) SARS-CoV-2, RNA, NAAT NEGATIVE (NEGATIVE) Administered Medications Amlodipine Besylate (Amlodipine Besylate 5 Mg Tab) 5 mg PO KEESHA Stop: 09/17/22 22:28 Last Admin: 08/18/22 23:32 Dose: 5 mg Documented By: TMD Atorvastatin Calcium (Atorvastatin 40 Mg Tab) 40 mg PO QA KEESHA Stop: 09/18/22 08:59 Last Admin: 08/19/22 08:00 Dose: 40 mg Documented By: MH Carvedilol (Carvedilol 25 Mg Tab) 25 mg PO BID KEESHA Stop: 09/17/22 22:28 Last Admin: 08/19/22 08:00 Dose: 25 mg Documented By: Admin: 08/18/22 23:33 Dose: 25 mg Documented By: DEANA Finasteride (Finasteride 5 Mg Tab) 5 mg PO QAM KEESHA Stop: 09/18/22 08:59 Last Admin: 08/19/22 07:59 Dose: 5 mg Documented By: JACINTO Mirabegron (Mirabegron Er 25 Mg Tab) 50 mg PO QAM KEESHA Stop: 09/18/22 08:59 Last Admin: 08/19/22 08:00 Dose: 50 mg Documented By: JACINTO Mirtazapine (Mirtazapine Tab 15 Mg Tab) 7.5 mg PO DAILY KEESHA Stop: 09/18/22 08:59 Last Admin: 08/19/22 07:59 Dose: 7.5 mg Documented By: JACINTO Oxybutynin Chloride (Oxybutynin Chloride Xl 5 Mg Tabcr) 5 mg PO QAM KEESHA Stop: 09/18/22 08:59 Last Admin: 08/19/22 07:59 Dose: 5 mg Documented By: JACINTO Pantoprazole Sodium (Pantoprazole 40 Mg Tab) 40 mg PO BID KEESHA Stop: 09/17/22 22:28 Last Admin: 08/19/22 08:01 Dose: 40 mg Documented By: Admin: 08/18/22 23:32 Dose: 40 mg Documented By: DEANA Potassium Chloride (Potassium Chloride Crtab 20 Meq Tabcr) 20 meq PO DAILY KEESHA Stop: 09/18/22 08:59 Last Admin: 08/19/22 08:00 Dose: 20 meq Documented By: JACINTO Sacubitril/Valsartan (Valsartan/Sacubitril 103/97mg Tab) 1 tab PO BID KEESHA Stop: 09/17/22 22:28 Last Admin: 08/19/22 08:00 Dose: 1 tab Documented By: Admin: 08/18/22 23:33 Dose: 1 tab Documented By: DEANA Tamsulosin HCl (Tamsulosin Hcl 0.4 Mg Cap) 0.4 mg PO HS KEESHA Stop: 09/17/22 22:28 Last Admin: 08/18/22 23:34 Dose: 0.4 mg Documented By: DEANA Discharge Plan Visit Data Chief Complaint: Abnormal Labs/Diagnostic Testing Stated Complaint: REF BY , ABNORMAL LABS ED Provider: Pierce Brian Discharge Problem: Ventricular tachycardia (paroxysmal) Patient Disposition: Admitted As Inpatient Discharge Instructions Interventions: ED Discharge Assessment Last Done: 08/18/22 21:48
--- NOTE | 2022-08-18 20:42 | History & Physical Report ---
Date of Service August 18, 2022 Assessment & Plan (1) Atrial fibrillation: Plan: 72yo Male PMH Afib GERD CHF HLD BPH HTN sent to hospital by [employer] out of concern for SVT. Tachycardia -noted on apple watch, sent to ED by cardiology for monitoring -continuous tele monitoring -EKG shows sinus bradycardia -last echo 07/30 EF 50-55% -hold flecainide -hold eliquis in case procedure tomorrow -consulted Cardiology Dr. Del Cid -NPO midnight Afib -eliquis on hold -hold flecainide CHF -continue Entresto -continue carvedilol -continue amlodipine HLD -continue atorvastatin BPH -continue tamsulosin -continue oxybutynin -continue myrbetriq GERD -continue protonix Sleeping Difficulty -continue mirtazapine FENa: NPO midnight Code Status: full DVT PPX: eliquis on hold Dispo: med/tele Reshma Soto Do PGY 2, FCM (2) CHF (congestive heart failure): (3) HLD (hyperlipidemia): (4) GERD (gastroesophageal reflux disease): (5) Hypertension: (6) BPH with obstruction/lower urinary tract symptoms: History of Present Illness Chief Complaint: Arrythmia Primary Care Provider: Huyen Villa MD 72yo Male PMH Afib GERD CHF HLD BPH HTN sent to hospital by [employer] out of concern for SVT. Patient states he has had 4 episodes of elevated heart rate since June as measured by his apple watch. Patient states they have happened while he is ambulating outside and at home, has felt lightheaded in this time, was previously admitted for afib and started on Flecainide by cardiology, has had a 3 day halter monitor without findings. He states his last episode of elevated heart rate to 180's as measured by apple watch was on Sunday, he told his PCP at a routine visit today who consulted with cardiology and sent him to the ED. Patient denies any symptoms at this time, is seated comfortably eating a sandwich. Patient states Dr. Del Cid wanted him on a laboratory monitor and will see him tomorrow. Allergies Allergy/AdvReac Type Severity Reaction Status Date / Time No Known Allergies Allergy Verified 08/18/22 13:46 Home Medications Medication Instructions Recorded Confirmed Type diphenhydramine 25 1 tab PO HS 04/20/21 08/18/22 History mg-acetaminophen 500 mg tablet (Tylenol PM Extra Strength) hyoscyamine sulfate 0.125 mg tablet 0.125 mg PO HS PRN abdominal pain 05/05/21 08/18/22 Rx #90 tabs tamsulosin 0.4 mg capsule 0.4 mg PO HS 08/29/21 08/18/22 History pantoprazole 40 mg tablet,delayed 40 mg PO BID #180 tabs 10/18/21 08/18/22 Rx release atorvastatin 40 mg tablet 40 mg PO QAM #90 tabs 01/16/22 08/18/22 Rx carvedilol 25 mg tablet 25 mg PO BID #180 tabs 04/14/22 08/18/22 Rx sacubitril 97 mg-valsartan 103 mg 1 tab PO BID #180 tabs 04/14/22 08/18/22 Rx tablet (Entresto) amlodipine 5 mg tablet 5 mg PO HS 05/17/22 08/18/22 History finasteride 5 mg tablet 5 mg PO QAM 05/17/22 08/18/22 History mirabegron 50 mg tablet,extended 50 mg PO QAM 05/17/22 08/18/22 History release 24 hr (Myrbetriq) oxybutynin chloride 5 mg 5 mg PO QAM 05/17/22 08/18/22 History tablet,extended release 24 hr mirtazapine 7.5 mg tablet 7.5 mg PO DAILY #90 tabs 07/25/22 08/18/22 Rx apixaban 5 mg tablet 5 mg PO BID #180 tabs 08/03/22 08/18/22 Rx potassium chloride 20 mEq 20 meq PO DAILY #90 tabs 08/09/22 08/18/22 Rx tablet,extended release flecainide 50 mg tablet 50 mg PO Q12H #180 tabs 08/17/22 08/18/22 Rx Past Med/Surg History Medical History Barretts esophagus BPH with obstruction/lower urinary tract symptoms Congestive heart failure Diverticular disease GERD (gastroesophageal reflux disease) Herniated nucleus pulposus, lumbar Hiatal hernia History of COVID-19 Hyperlipidemia Hypertension Myocardial Infarction Osteoarthritis PVC's (premature ventricular contractions) SVT (supraventricular tachycardia) Syncope Surgical History History of cardiac cath History of colonoscopy (04/25/21) History of esophagogastroduodenoscopy (EGD) (08/02/20) History of hernia repair History of prostate biopsy History of removal of cyst History of right cataract surgery History of surgical procedure on mouth History of tooth extraction Family History Other No family history of adverse response to anesthesia Denies family history of Ovarian cancer Prostate cancer Breast cancer Lung cancer Colorectal cancer Social History Smoking Status: Former smoker Tobacco Type: Cigarettes Cigarettes Per Day: 1 Pack Highschool; Second Hand Exposure: Yes; Do You Dip or Chew Tobacco: No; Hx Alcohol Use: Yes Alcohol type: beer Hx Substance Use: No Preferred Language: Central African Communication Ability: Effective Tank Stave Assembler Required: No Beliefs That Will Affect Care: None marital status: Current Living Situation: Spouse current occupational status: 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 Feels Safe at Home: Yes caffeine: Yes Dental Care, Regularly: Yes Physical Activity Frequency: Does not Exercise Seatbelt Use: always Sunscreen Use: No Assistive Devices: None Review of Systems Review of Systems: Negative fever chills Negative headache dizziness Negative chest pain palpitations SOB Negative nausea vomitting diarrhea constipation Negative numbness tingling rash swelling Physical Exam Constitutional: WD/WN, vitals as above Eyes: PERRL, conjunctivae normal, anicteric sclerae ENMT: external ear and nose normal, oropharynx normal Neck: trachea midline, no thyromegaly Respiratory: normal respiratory effort, lungs clear to auscultation Cardiovascular: Rate/Rhythm: regular rate and regular rhythm Chest (Breasts): Chest: normal inspection of chest Gastrointestinal (Abdomen): normal bowel sounds, soft, nontender, no hepatosplenomegaly Skin: no rashes, warm and dry Psychiatric: A+Ox3, euthymic affect Results & Data Results & Data ([facility]) Vital Signs (Past 12 Hours) Vital Signs Temp Pulse Pulse Resp BP BP Pulse Ox 08/18/22 20:30 81 19 161/103 H 95 08/18/22 20:00 71 13 95 09/30/22 19:45 76 18 160/88 H 98 08/18/22 16:40 36.8 C 76 20 135/91 97 O2 Del Method 08/18/22 20:30 08/18/22 20:00 08/18/22 19:45 Room Air 08/18/22 16:40 Room Air Diagnostic Findings Laboratory Results WBC 6.55 K/ul (4.8-10.8) 08/18/22 17:55 RBC 4.81 M/uL (4.63-6.08) 08/18/22 17:55 Hgb 14.8 g/dl (14.0-18.0) 08/18/22 17:55 Hct 42.0 % (40.1-51.0) 08/18/22 17:55 MCV 87.3 fL (80.0-100.0) 08/18/22 17:55 MCH 30.8 pg (25.0-34.0) 08/18/22 17:55 MCHC 35.2 g/dL (32.0-36.0) 08/18/22 17:55 RDW Std Deviation 41.2 fL (36.4-46.3) 08/18/22 17:55 RDW Coeff of Stefanie 12.9 % (11.5-14.5) 08/18/22 17:55 Plt Count 185 K/uL (130-400) 08/18/22 17:55 MPV 10.0 fL (9.4-12.4) 08/18/22 17:55 Immature Gran % (Auto) 0.2 % 08/18/22 17:55 Neut % (Auto) 63.7 % 08/18/22 17:55 Lymph % (Auto) 24.0 % 08/18/22 17:55 [place] % (Auto) 9.5 % 08/18/22 17:55 Eos % (Auto) 2.3 % 08/18/22 17:55 Baso % (Auto) 0.3 % 08/18/22 17:55 Neut # (Auto) 4.18 K/uL (1.4-6.5) 08/18/22 17:55 Lymph # (Auto) 1.57 K/uL (1.2-3.4) 08/18/22 17:55 [place] # (Auto) 0.62 K/uL (0.24-0.82) 08/18/22 17:55 Eos # (Auto) 0.15 K/uL (0-0.50) 08/18/22 17:55 Baso # (Auto) 0.02 K/uL (0-0.2) 08/18/22 17:55 Immature Gran # (Auto) 0.01 K/uL (0.00-0.02) 08/18/22 17:55 PT 10.5 Seconds (9.0-12.0) 08/18/22 17:55 INR 1.0 (0.9-1.1) 08/18/22 17:55 APTT 31.7 Seconds (21.0-31.0) H 08/18/22 17:55 PTT Ratio 1.2 08/18/22 17:55 Sodium 137 mmol/L (136-145) 08/18/22 17:55 Potassium 3.8 mmol/L (3.5-5.1) 08/18/22 17:55 Chloride 106 mmol/L (98-107) 08/18/22 17:55 Carbon Dioxide 25 mmol/L (21-32) 08/18/22 17:55 Anion Gap 6 (3-11) 08/18/22 17:55 BUN 18 mg/dl (6-23) 08/18/22 17:55 Creatinine 0.88 mg/dl (0.6-1.4) 08/18/22 17:55 Est Cr Clr Drug Dosing 79.6 ml/min 08/18/22 17:55 Est GFR ( Amer) 98.8 ml/min 08/18/22 17:55 Est GFR (Non-Af Amer) 85.2 ml/min 08/18/22 17:55 BUN/Creatinine Ratio 20.5 (10-20) H 08/18/22 17:55 Glucose 101 mg/dl (70-99(Fasting)) H 08/18/22 17:55 Calcium 9.0 mg/dl (8.5-10.1) 08/18/22 17:55 Total Bilirubin 0.5 mg/dl (0.2-1.0) 08/18/22 17:55 AST 18 U/L (13-39) 08/18/22 17:55 ALT 23 U/L (7-52) 08/18/22 17:55 Alkaline Phosphatase 136 U/L (34-104) H 08/18/22 17:55 Troponin I High Sens 7.8 pg/ml (0-20) D 08/18/22 17:55 Total Protein 7.4 gm/dl (6.0-8.3) 08/18/22 17:55 Albumin 4.1 gm/dl (3.4-5.0) 08/18/22 17:55 Globulin 3.3 gm/dl (2.5-4.0) 08/18/22 17:55 Albumin/Globulin Ratio 1.2 (0.9-2) 08/18/22 17:55 Supervising Physician Co-Signing Physician Notes Attending addendum: I have physically seen this patient, have supervised the medical residents activities, and agree with the H&P unless as otherwise noted. Assessment and Plan: V. tach/atrial fibrillation/CHF- - Referred by cardiology Dr. Del Cid The patient will be admitted to telemetry for serial cardiac enzymes, serial EKG's, cardiac rhythm monitoring and a 2-D echocardiogram with Dopplers. Echo from 07/30 with ejection fraction 50-55% Holding flecainide and Eliquis as directed N.p.o. except essential medications after midnight Continuing Entresto, carvedilol and amlodipine Hyperlipidemia- Continue atorvastatin Check a fasting lipid panel BPH- Continuing tamsulosin, oxybutynin and Myrbetriq GERD- Continue pantoprazole Remaining orders and notations as noted Resident Activity Tracking Resident Involvement: Resident Care Provided Care Provided: Adult Hospital Medicine (1) CHF (congestive heart failure) Heart failure chronicity: unspecified Heart failure type: unspecified Qualified Code(s): I50.9 - Heart failure, unspecified
[2022-08-18] MEDS ORDERED: ACETAMINOPHEN 325 MG TAB PO PRN (22:29)
[2022-08-18] MEDS ORDERED: POLYETHYLENE (MIRALAX) 17 GM PACK PO PRN (22:29)
[2022-08-18] MEDS: PANTOprazole 40 MG TAB PO SCH (23:32)
[2022-08-18] MEDS: amLODIPine BESYLATE 5 MG TAB PO SCH (23:32)
[2022-08-18] MEDS: VALSARTAN/SACUBITRIL 103/97MG TAB PO SCH (23:33)
[2022-08-18] MEDS: carvediloL 25 MG TAB PO SCH (23:33)
[2022-08-18] MEDS: TAMSULOSIN HCL 0.4 MG CAP PO SCH (23:34)
--- NOTE | 2022-08-19 07:16 | Electrocardiogram Report ---
Test Reason : Blood Pressure : / mmHG Vent. Rate : 051 BPM Atrial Rate : 051 BPM P-R Int : 208 ms QRS Dur : 128 ms QT Int : 460 ms P-R-T Axes : 035 -32 058 degrees QTc Int : 423 ms Sinus bradycardia Left axis deviation Right bundle branch block Nonspecific T wave abnormality Abnormal ECG When compared with ECG of 03-AUG-2022 20:08, Vent. rate has decreased BY 42 BPM Confirmed by Parag Del Cid ([id number]) on 08/19/2022 7:16:48 AM Referred By: Bandar Del Cid Confirmed By:Bandar Del Cid
[2022-08-19] MEDS: carvediloL 25 MG TAB PO SCH ×2 (08:00→20:44)
[2022-08-19] MEDS: VALSARTAN/SACUBITRIL 103/97MG TAB PO SCH ×2 (08:00→20:44)
[2022-08-19] MEDS: PANTOprazole 40 MG TAB PO SCH ×2 (08:01→20:44)
[2022-08-19] MEDS ORDERED: POTASSIUM CHLORIDE CRTAB 20 MEQ TABCR PO SCH (09:00)
[2022-08-19] MEDS ORDERED: ATORVASTATIN 40 MG TAB PO SCH (09:00)
[2022-08-19] MEDS ORDERED: OXYBUTYNIN CHLORIDE XL 5 MG TABCR PO SCH (09:00)
[2022-08-19] MEDS ORDERED: MIRABEGRON ER 25 MG TAB PO SCH (09:00)
[2022-08-19] MEDS ORDERED: MIRTAZAPINE TAB 15 MG TAB PO SCH (09:00)
[2022-08-19] MEDS ORDERED: FINASTERIDE 5 MG TAB PO SCH (09:00)
--- NOTE | 2022-08-19 12:12 | Cardiology Consultation ---
Date of Consultation August 19, 2022 Assessment & Plan (1) SVT (supraventricular tachycardia): (2) Syncope: (3) Wide-complex tachycardia: Plan 1. Wide complex tachycardia: The patient has a good recording of the tachycardia experience during his walk several days ago. This is clearly a wide complex and very regular tachycardia. 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 He did not experience syncope, likely due to preserved LV systolic function. It is possible this represents his underlying SVT with aberrant conduction. I do not think we could definitively say this is merchandising representative of aberrant conduction based on the recording available. However, it would make sense for him to have 1 arrhythmia rather than to. He has a history of a nonischemic cardiomyopathy and frequent ventricular ectopy. He also appears to have developed some element of conduction disease over the years. 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 This was not present at the time of his initial diagnosis nearly 3 years ago. It is possible that he suffers from an infiltrative process with resulting conduction disease and arrhythmias. A structural evaluation with a cardiac MRI may be of value in this regard. It is possible that flecainide also had a proarrhythmic affect at this point I would recommend discontinuation of flecainide. Will continue his carvedilol. Based on the unknown etiology of the wide complex tachycardia he will be fitted with a wearable defibrillator. He is already scheduled to follow up for EP study and possible ablation next week. 2. SVT: He was admitted twice over the past couple of months with sustained SVT and syncope. On both occasions he required cardioversion. The arrhythmia is not responsive to adenosine. We do have some recordings of the arrhythmia experience most recently. This suggests an atypical flutter or possibly ectopic atrial tachycardia. He has some history of atrial fibrillation but this likely represents degeneration of his SVT. Not currently felt to require anticoagulation. 3. Frequent PVCs: Improved at his initial diagnosis they were around 8%. 4. Cardiomyopathy: This appears to have been resolved. He has had normal LV systolic function for some time. Does not manifest symptoms of congestive heart failure. No symptoms of angina. 5. Mitral regurgitation: Mild History of Present Illness Reason for Consultation: Wide complex tachycardia Requesting Physician: Ina Attending Physician: Sara Ulloa MD History of Present Illness The patient is a 72-year-old gentleman with a history of a nonischemic cardiomyopathy, frequent PVCs and recent diagnosis of SVT who experienced an episode of presyncope associated with tachycardia 5 days ago. The patient states that he was on a walk. He was not walking particularly fast or feeling poorly in any way. He began to experience some element of lightheadedness and noted on his watch a heart rate around 180 beats per minute. He recorded an EKG from his watch and sat down to rest. He believes 10-15 minutes went by before the tachycardia and symptoms resolved. He did not have associated chest pain. He did not suffer syncope. Afterwards he felt quite well and did not mention this episode to anyone until he visited his primary care physician yesterday. Not only did he mention the episode but he brought the recordings for review. Based on the nature of the recordings and his symptoms he was advised to go to the hospital for observation The patient states that he has otherwise been feeling well. He is generally unaware of palpitations. He has not been experiencing significant breathing difficulty. He has rare and fleeting episodes of dizziness that are not prolonged in nature. No other episodes of syncope. Allergies Allergy/AdvReac Type Severity Reaction Status Date / Time No Known Allergies Allergy Verified 08/18/22 13:46 Home Medications Medication Instructions Recorded Confirmed Type diphenhydramine 25 1 tab PO HS 04/20/21 08/18/22 History mg-acetaminophen 500 mg tablet (Tylenol PM Extra Strength) hyoscyamine sulfate 0.125 mg tablet 0.125 mg PO HS PRN abdominal pain 05/05/21 08/18/22 Rx #90 tabs tamsulosin 0.4 mg capsule 0.4 mg PO HS 08/29/21 08/18/22 History pantoprazole 40 mg tablet,delayed 40 mg PO BID #180 tabs 10/18/21 08/18/22 Rx release atorvastatin 40 mg tablet 40 mg PO QAM #90 tabs 01/16/22 08/18/22 Rx carvedilol 25 mg tablet 25 mg PO BID #180 tabs 04/14/22 08/18/22 Rx sacubitril 97 mg-valsartan 103 mg 1 tab PO BID #180 tabs 04/14/22 08/18/22 Rx tablet (Entresto) amlodipine 5 mg tablet 5 mg PO HS 05/17/22 08/18/22 History finasteride 5 mg tablet 5 mg PO QAM 05/17/22 08/18/22 History mirabegron 50 mg tablet,extended 50 mg PO QAM 05/17/22 08/18/22 History release 24 hr (Myrbetriq) oxybutynin chloride 5 mg 5 mg PO QAM 05/17/22 08/18/22 History tablet,extended release 24 hr mirtazapine 7.5 mg tablet 7.5 mg PO DAILY #90 tabs 07/25/22 08/18/22 Rx apixaban 5 mg tablet 5 mg PO BID #180 tabs 08/03/22 08/18/22 Rx potassium chloride 20 mEq 20 meq PO DAILY #90 tabs 08/09/22 08/18/22 Rx tablet,extended release flecainide 50 mg tablet 50 mg PO Q12H #180 tabs 08/17/22 08/18/22 Rx Patient History Medical History Barretts esophagus BPH with obstruction/lower urinary tract symptoms Congestive heart failure Diverticular disease GERD (gastroesophageal reflux disease) Herniated nucleus pulposus, lumbar Hiatal hernia History of COVID-19 Hyperlipidemia Hypertension Myocardial Infarction Osteoarthritis PVC's (premature ventricular contractions) SVT (supraventricular tachycardia) Syncope Surgical History History of cardiac cath History of colonoscopy (04/25/21) History of esophagogastroduodenoscopy (EGD) (08/02/20) History of hernia repair History of prostate biopsy History of removal of cyst History of right cataract surgery History of surgical procedure on mouth History of tooth extraction Family History Other No family history of adverse response to anesthesia Denies family history of Ovarian cancer Prostate cancer Breast cancer Lung cancer Colorectal cancer Social History Smoking Status: Former smoker Tobacco Type: Cigarettes Cigarettes Per Day: 1 Pack Highschool; Second Hand Exposure: Yes; Do You Dip or Chew Tobacco: No; Hx Alcohol Use: Yes Alcohol type: beer Hx Substance Use: No Preferred Language: Ukrainian Communication Ability: Effective [employer] Required: No Beliefs That Will Affect Care: None marital status: Current Living Situation: Spouse current occupational status: 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 No recent fevers or chills. No other constitutional symptoms. Physical Exam Physical Exam: The patient is alert and oriented. Mood and affect appeared normal. He answered all questions appropriately. HEENT: Pupils are equal and reactive to light and accommodation. Extraocular movements are intact. The sclerae are anicteric. Neuro: Cranial nerves intact Lungs: Normal respiratory effort. Cardiac: Heart demonstrates a regular rate and rhythm. Normal S1 and S2. No ectopy. Pulses: The patient has palpable radial pulses bilaterally that are equal in intensity Extremities: There was no evidence of hypoperfusion. There is no cyanosis or clubbing. There is no edema. Skin: I did not appreciate any rashes on examination today. Results & Data ([facility]) Vital Signs (Past 12 Hours) Vital Signs Temp Pulse Pulse Resp BP Pulse Ox O2 Del Method 08/19/22 11:21 36.7 C 84 18 117/82 95 Room Air 08/19/22 07:09 62 08/19/22 06:45 37 C 75 20 109/72 96 Room Air 08/19/22 03:00 36.9 C 75 20 122/75 97 Room Air Laboratory Results Abnormal Lab Results 08/18/22 08/18/22 08/18/22 17:55 17:55 17:55 WBC 6.55 RBC 4.81 Hgb 14.8 Hct 42.0 MCV 87.3 MCH 30.8 MCHC 35.2 RDW Std Deviation 41.2 RDW Coeff of Stefanie 12.9 Plt Count 185 MPV 10.0 Immature Gran % (Auto) 0.2 Neut % (Auto) 63.7 Lymph % (Auto) 24.0 [place] % (Auto) 9.5 Eos % (Auto) 2.3 Baso % (Auto) 0.3 Neut # (Auto) 4.18 Lymph # (Auto) 1.57 [place] # (Auto) 0.62 Eos # (Auto) 0.15 Baso # (Auto) 0.02 Immature Gran # (Auto) 0.01 PT 10.5 INR 1.0 APTT 31.7 H PTT Ratio 1.2 Sodium 137 Potassium 3.8 Chloride 106 Carbon Dioxide 25 Anion Gap 6 BUN 18 Creatinine 0.88 Est Cr Clr Drug Dosing 79.6 Est GFR ( Amer) 98.8 Est GFR (Non-Af Amer) 85.2 BUN/Creatinine Ratio 20.5 H Glucose 101 H Calcium 9.0 Total Bilirubin 0.5 AST 18 ALT 23 Alkaline Phosphatase 136 H Troponin I High Sens 7.8 D Total Protein 7.4 Albumin 4.1 Globulin 3.3 Albumin/Globulin Ratio 1.2 SARS-CoV-2, RNA, NAAT 08/18/22 19:31 WBC RBC Hgb Hct MCV MCH MCHC RDW Std Deviation RDW Coeff of Stefanie Plt Count MPV Immature Gran % (Auto) Neut % (Auto) Lymph % (Auto) [place] % (Auto) Eos % (Auto) Baso % (Auto) Neut # (Auto) Lymph # (Auto) [place] # (Auto) Eos # (Auto) Baso # (Auto) Immature Gran # (Auto) PT INR APTT PTT Ratio Sodium Potassium Chloride Carbon Dioxide Anion Gap BUN Creatinine Est Cr Clr Drug Dosing Est GFR ( Amer) Est GFR (Non-Af Amer) BUN/Creatinine Ratio Glucose Calcium Total Bilirubin AST ALT Alkaline Phosphatase Troponin I High Sens Total Protein Albumin Globulin Albumin/Globulin Ratio SARS-CoV-2, RNA, NAAT NEGATIVE Diagnostic Findings Echocardiogram performed 07/30/2022: Normal LV systolic function with ejection fraction of 50-55%. Possible anterior wall hypokinesis. No LVH. Normal RV size and function. Mild mitral annular calcification and mild mitral regurgitation. Mild left atrial enlargement. Outpatient Holter monitor dated 07/06/2022: 4% PVCs. Rare atrial ectopy. Symptoms of palpitations appear to correlate with isolated ventricular ectopy Echocardiogram performed 01/03/2021: Normal LV systolic function with ejection fraction of 50-55%. Stage I diastolic dysfunction. Mild LVH. Mild left atrial dilation. Mild mitral annular calcification. Trace mitral regurgitation. Echocardiogram dated 06/18/2020: Mild left ventricular dilation. Mild LVH. Mildly reduced LV systolic function with ejection fraction of 35-40%. Stage I diastolic dysfunction. Mild left atrial dilation. Holter monitor dated 05/24/2020: 7.6% PVCs. Echocardiogram dated 03/15/2020: Severe LV dysfunction with ejection fraction 30%. Mild mitral regurgitation. Mild LVH. Moderate to severe global hypokinesis. Cardiac catheterization 12/08/2019: 50% D1 ostial stenosis. 30% mid RCA stenosis. 20% distal RCA stenosis. Right dominant coronary system. Left ventricular end-diastolic pressure 10 mm of mercury. ECG Additional Comments: Normal sinus rhythm with right bundle branch block. QTC 423 PG Care Time/CCT Total # of Minutes Spent Total Time Spent with Patient: Total time spent is greater than 50% in coordination of care (as documented) at patient's floor/unit and/or counseling patient: Coding Level of Care Code INT OBSERVATION CARE 70M LVL 3 Diagnoses SVT (supraventricular tachycardia) I47.1 Syncope R55 Wide-complex tachycardia I47.2
--- NOTE | 2022-08-19 16:57 | Hospitalist Progress Note ---
Date of Service August 19, 2022 Assessment & Plan (1) Wide-complex tachycardia: Plan: Patient presents with arrythmias picked up on his watch apple device Suspected to have SVT with abberancy and possibly new right bundle branch block vcardiology consulted Suggest outpatient MRI to investigate inflitrative etiology Will stop Flecainaide in view of suspected arrythmogenic effect Continue cravedilol Patient will need a wearable defibrilliator here before discharge For outpatient ablation with EP (2) SVT (supraventricular tachycardia): (3) Atrial fibrillation: Plan: On Apixaban Plan d/c after he obtains a wearable defib Admission and Anticipated Discharge Date Admission Date: August 18, 2022 Subjective patient seen and examined today, no new complaints Review of Systems Review of Systems: All systems reviewed are negative, apart from the ones contained in the history. Physical Exam Physical Exam: The patient is awake, alert and oriented 3, well developed and well nourished, normocephalic and atraumatic, lying in bed and in no acute distress. HEENT--PERRL, EOMI, mucous membranes and oropharynx mildly dry Neck--supple. No JVD. No bruits. Thyroid normal, trachea midline, no adenopathy. Heart--normal S1 and S2. No murmurs, rubs or gallops. Lungs--clear bilaterally, no respiratory distress, no accessory muscle use. Abdomen--normal bowel sounds and soft. Mild epigastric and left sided abdominal pain Extremities--no cyanosis or clubbing. No edema. Dermatologic--normal skin turgor, normal color, no abnormal lymph nodes, no rash. Neurologic--cranial nerves II through XII grossly intact. Rheumatologic--normal range of motion. Psychiatric--normal affect. Results & Data Results & Data ([facility]) Vital Signs (Past 12 Hours) Vital Signs Temp Pulse Pulse Resp BP Pulse Ox O2 Del Method 08/19/22 15:09 67 08/19/22 15:06 97.9 F 61 16 135/78 96 Room Air 08/19/22 11:21 98.1 F 84 18 117/82 95 Room Air 08/19/22 07:09 62 08/19/22 06:45 98.6 F 75 20 109/72 96 Room Air PG Care Time/CCT Total # of Minutes Spent Total Time Spent with Patient: Total time spent is greater than 50% in coordination of care (as documented) at patient's floor/unit and/or counseling patient: Coding Level of Care Code 20230 Subseq Hosp Care Lvl 2 Diagnoses Wide-complex tachycardia I47.2 SVT (supraventricular tachycardia) I47.1 Atrial fibrillation I48.91 Time Spent (min) 35
--- NOTE | 2022-08-19 19:02 | Billing Data ---
Date of Service August 19, 2022 Coding Level of Care Code INT OBSERVATION CARE 70M LVL 3
[2022-08-19] MEDS: amLODIPine BESYLATE 5 MG TAB PO SCH (20:44)
[2022-08-19] MEDS: TAMSULOSIN HCL 0.4 MG CAP PO SCH (20:44)
--- NOTE | 2022-08-19 22:17 | Communication Note ---
Date of Service: August 19, 2022 10:10pm -- Notified by nursing staff that patient was fitted with the wearable defibrillator vest and cleared/completed education on the vest. He is eager for discharge home. 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 Precautions given to return to ED for worsening/recurrent/concerning symptoms. Resident Activity Tracking Resident Involvement: Resident Care Provided Care Provided: Adult Hospital Medicine
--- NOTE | 2022-08-20 07:38 | Discharge Summary ---
Date of Service August 19, 2022 Admission HPI Per Admitting Provider 72yo Male PMH Afib GERD CHF HLD BPH HTN sent to hospital by Manager Investigations out of concern for SVT. Patient states he has had 4 episodes of elevated heart rate since June as measured by his apple watch. Patient states they have happened while he is ambulating outside and at home, has felt lightheaded in this time, was previously admitted for afib and started on Flecainide by cardiology, has had a 3 day halter monitor without findings. He states his last episode of elevated heart rate to 180's as measured by apple watch was on Sunday, he told his PCP at a routine visit today who consulted with cardiology and sent him to the ED. Patient denies any symptoms at this time, is seated comfortably eating a sandwich. Patient states Dr. 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 Principal Diagnosis wide complex arrythmia Discharge Exam The patient is awake, alert and oriented 3, well developed and well nourished, normocephalic and atraumatic, lying in bed and in no acute distress. HEENT--PERRL, EOMI, mucous membranes and oropharynx mildly dry Neck--supple. No JVD. No bruits. Thyroid normal, trachea midline, no adenopathy. Heart--normal S1 and S2. No murmurs, rubs or gallops. Lungs--clear bilaterally, no respiratory distress, no accessory muscle use. Abdomen--normal bowel sounds and soft. Mild epigastric and left sided abdominal pain Extremities--no cyanosis or clubbing. No edema. Dermatologic--normal skin turgor, normal color, no abnormal lymph nodes, no rash. Neurologic--cranial nerves II through XII grossly intact. Rheumatologic--normal range of motion. Psychiatric--normal affect. Discharge Data Allergies Allergy/AdvReac Type Severity Reaction Status Date / Time No Known Allergies Allergy Verified 08/18/22 13:46 Consultations 08/18/22 19:47 ED Decision to Admit Stat 08/18/22 22:29 Consult Cardiology Routine Hospital Course (1) Wide-complex tachycardia: Patient presents with arrythmias picked up on his watch apple device Suspected to have SVT with abberancy and possibly new right bundle branch block vcardiology consulted Suggest outpatient MRI to investigate inflitrative etiology Will stop Flecainaide in view of suspected arrythmogenic effect Continue cravedilol Patient will need a wearable defibrilliator here before discharge For outpatient ablation with EP (2) SVT (supraventricular tachycardia): (3) Atrial fibrillation: Not suggestive of afib No need for anticoagulation per cardiology Plan d/c after he obtains a wearable defib Total Time Total Time Spent Total Time Spent (In Minutes): 35 Discharge Plan Discharge Items Patient Disposition: Home - Self-Care Reason For Visit: ARRYTHMIA Discharge Diagnosis: wide complex tachycardia Activity: Per Instructions section Non-emergency contact: Primary Care Provider and Manager [employer] Call non-emergency contact if: you have any medication questions and your symptoms worsen Follow-up/Referrals: Huyen Villa MD [Primary Care Provider] - Diet: Heart Healthy Addtl Attending Provider Instructions: You were admitted to the hospital for tachycardia and evalauted by cardiology. On discharge, you have been fitted and educated on the use of the wearable defibrillator. You are already scheduled for follow up with cardiac EP (elecrophysiology) next week for further evaluation -- it is very important that you go to that appointment. Medication changes as noted: STOP flecainide Please return to the emergency department if you have any concerning symptoms including chest pain, fast heart rate, palpitations, or shortness of breath. You should also follow up with your primary care physician in 2-3 days. Pending Studies at Discharge: No Stand-Alone Forms: [facility], Smoking Cessation Medications and DC Order Prescriptions: Continued hyoscyamine sulfate 0.125 mg tablet 0.125 mg PO HS PRN (Reason: abdominal pain) Qty: 90 3RF pantoprazole 40 mg tablet,delayed release (DR/EC) 40 mg PO BID Qty: 180 4RF atorvastatin 40 mg tablet 40 mg PO QAM Qty: 90 3RF carvedilol 25 mg tablet 25 mg PO BID Qty: 180 3RF Rx Instructions: must administer with a meal/food Entresto 97-103 mg tablet 1 tab PO BID Qty: 180 3RF mirtazapine 7.5 mg tablet 7.5 mg PO DAILY Qty: 90 2RF potassium chloride 20 mEq tablet extended release 20 meq PO DAILY Qty: 90 3RF tamsulosin 0.4 mg capsule 0.4 mg PO HS diphenhydramine-acetaminophen [Tylenol PM Extra Strength] 25-500 mg Tablet 1 tab PO HS amlodipine 5 mg tablet 5 mg PO HS oxybutynin chloride 5 mg tablet extended release 24 hr 5 mg PO QAM finasteride 5 mg tablet 5 mg PO QAM Myrbetriq 50 mg tablet extended release 24 hr 50 mg PO QAM Discontinued apixaban 5 mg tablet 5 mg PO BID Qty: 180 3RF flecainide 50 mg tablet 50 mg PO Q12H Qty: 180 3RF Discharge Orders: Discharge Order (Routine); Ordered 08/19/22 Ordered By: Cristin Veras Admission Data Admit Date/Time: 08/18/22 20:36 Attending Provider: Sara Ulloa Admit Provider: Reshma Soto Primary Care Provider: Huyen Villa Other Providers: Viraj Vergara ; Parag Del Cid Other Interventions: Discharge Summary Assessment (RN) Last Done: 08/19/22 22:16 Coding Level of Care Code D/C DAY MANAGEMENT >30 MINS Diagnoses Wide-complex tachycardia I47.2 SVT (supraventricular tachycardia) I47.1 Atrial fibrillation I48.91 Time Spent (min) 35
== END 2022-08-19 22:33 | disposition home or self-care (01) ==
LOC: 2W 16:40 → ED 16:40 → SUATTDRO 20:36 → 2W 21:48

== ENCOUNTER 2024-08-01 07:52 | Observation (INO) ==
--- NOTE | 2024-05-27 12:17 | PAT Medication Instructions ---
Medication Instructions Date of Service May 27, 2024 Home Medications Medication Instructions Recorded rosuvastatin 40 mg tablet 40 mg PO DAILY #90 tabs 08/16/23 potassium chloride 20 mEq 20 meq PO DAILY #90 tabs 08/21/23 tablet,extended release amlodipine 2.5 mg tablet 2.5 mg PO HS #90 tabs 09/28/23 apixaban 5 mg tablet (Eliquis) 5 mg PO BID #180 tabs 11/01/23 hyoscyamine sulfate 0.125 mg tablet 0.125 mg PO HS PRN abdominal pain 11/01/23 #90 tabs pantoprazole 40 mg tablet,delayed 40 mg PO BID #180 tabs 11/01/23 release mirtazapine 7.5 mg tablet 7.5 mg PO DAILY #90 tabs 02/13/24 finasteride 5 mg tablet 5 mg PO DAILY #90 tabs 04/30/24 oxybutynin chloride 5 mg 5 mg PO QAM #90 tabs 04/30/24 tablet,extended release 24 hr tamsulosin 0.4 mg capsule 0.8 mg (2 x 0.4 mg) PO DAILY #180 04/30/24 caps carvedilol 25 mg tablet 25 mg PO BID #180 tabs 05/23/24 sacubitril 97 mg-valsartan 103 mg 1 tab PO BID #180 tabs 05/23/24 tablet (Entresto) Medication List: diphenhydramine 25 mg-acetaminophen 500 mg tablet (Tylenol PM Extra Strength) 1 tab PO HS amiodarone 200 mg tablet 100 mg PO QAM rosuvastatin 40 mg tablet 40 mg PO DAILY potassium chloride 20 mEq tablet,extended release 20 meq PO DAILY amlodipine 2.5 mg tablet 2.5 mg PO HS apixaban 5 mg tablet (Eliquis) 5 mg PO BID hyoscyamine sulfate 0.125 mg tablet 0.125 mg PO HS PRN abdominal pain pantoprazole 40 mg tablet,delayed release 40 mg PO BID mirtazapine 7.5 mg tablet 7.5 mg PO DAILY finasteride 5 mg tablet 5 mg PO DAILY oxybutynin chloride 5 mg tablet,extended release 24 hr 5 mg PO QAM tamsulosin 0.4 mg capsule 0.8 mg (2 x 0.4 mg) PO DAILY carvedilol 25 mg tablet 25 mg PO BID sacubitril 97 mg-valsartan 103 mg tablet (Entresto) 1 tab PO BID MEDICATION INSTRUCTIONS: ASK your prescriber and surgeon apixaban 5 mg tablet (Eliquis) 5 mg PO BID DO NOT take the morning of surgery potassium chloride 20 mEq tablet,extended release 20 meq PO DAILY oxybutynin chloride 5 mg tablet,extended release 24 hr 5 mg PO QAM sacubitril 97 mg-valsartan 103 mg tablet (Entresto) 1 tab PO BID Take morning of surgery With a small sip of water, OTHERWISE NOTHING TO EAT OR DRINK AFTER MIDNIGHT: mirtazapine 7.5 mg tablet 7.5 mg PO DAILY amiodarone 200 mg tablet 100 mg PO QAM rosuvastatin 40 mg tablet 40 mg PO DAILY finasteride 5 mg tablet 5 mg PO DAILY tamsulosin 0.4 mg capsule 0.8 mg (2 x 0.4 mg) PO DAILY pantoprazole 40 mg tablet,delayed release 40 mg PO BID carvedilol 25 mg tablet 25 mg PO BID Take evening before surgery amlodipine 2.5 mg tablet 2.5 mg PO HS diphenhydramine 25 mg-acetaminophen 500 mg tablet (Tylenol PM Extra Strength) 1 tab PO HS pantoprazole 40 mg tablet,delayed release 40 mg PO BID carvedilol 25 mg tablet 25 mg PO BID sacubitril 97 mg-valsartan 103 mg tablet (Entresto) 1 tab PO BID hyoscyamine sulfate 0.125 mg tablet 0.125 mg PO HS PRN abdominal pain Other Notes If you have any questions please call us at [phone] or [phone] or [phone] or [phone]
--- NOTE | 2024-06-04 12:36 | Anesthesiology Consultation ---
Date of Service June 04, 2024 Assessment & Plan (1) Encounter for pre-operative examination: - Infectious disease screening: Per assessment on 06/04/24: No known recent infectious disease contacts or current infectious disease symptoms. - Outpatient joint assessment: Pt currently scheduled for inpatient pathway. If surgeon requests review for outpatient joint pathway, patient is not recommended candidate for outpatient joint program from anesthesia standpoint based on available information. - Eliquis instructions: [place] surgeon/prescriber [place] [facility]12/24): "Cardiomyopathy: Last ejection fraction estimated at 50%. Regional wall motion abnormality concerning for old infarct but prior perfusion and cardiac catheterization did not suggest severe coronary disease. Will continue treatment with carvedilol and Entresto. Overall well compensated without an indication for diuretic or more aggressive treatment at this point.. Frequent PVCs: He continues have a relatively low frequency of PVCs. Not symptomatic. I do not think there is a need to change therapy at this point.. Hypertension: Overall good control.. Mild mitral regurgitation on his echocardiogram from [place]. no mention of mitral regurgitation on his recent exercise echocardiogram. Will continue to monitor this over time.. Coronary disease: Branch vessel disease noted at the time of his catheterization performed in November 2019. Normal perfusion study performed in [place]. Continue aggressive secondary prevention.. Atrial Arrhythmia: No symptoms. No reported arrhythmias. No alerts from his watch or recorded on his loop recorder. He is continued on low-dose amiodarone. Liver tests and thyroid tests have been normal.. Fatigue: Improved. Untreated sleep apnea." - EP visit (05/26/24): "..History of heart failure with reduced EF down to about 20 to 25%. He had a heart cath that did not demonstrate any occlusive disease.. He was discharged on GDMT with recovery of his LVEF to about 50%. He was subsequently diagnosed with atrial fibrillation and started on therapy with flecainide when he presented once again to the hospital with a widecomplex tachycardia. In review, I believe this to be most consistent with aberrant conduction on flecainide therapy.However I did take him to the lab for an EP study and we were unable to induce any ventricular arrhythmias. I did subsequently implant an implantable loop recorder.Since then he has had symptomatic paroxysms of atrial fibrillation associated with palpitations. He was started on amiodarone.. Subsequently reduced to current dose.. Due to prolonged QT interval.. On EKG today, he currently remains in sinus rhythm at a rate of about 60 bpm with a corrected QT interval about 470 ms.. I did personally review his most recent device check from his implantable loop recorder. He had 2 very brief episodes of AT, 2 minutes in duration each.. Remains in sinus rhythm today, we will continue his current lowdose of amiodarone. He will also continue apixaban for prevention of thromboembolic events..It is reassuring that his AT/AF burden was very low on his last check." 6 month f/u recommended. - Urology visit (06/02/24): "73-year-old male with a history of BPH on Flomax and finasteride as well as oxybutynin. He previously followed with Dr. Colin. They also were trending PSAs and most recent value was 1.078 on 02/25/2024 which be corrected to 2.14 on finasteride. I recommended cystoscopy for further evaluation. I also do think possibly his sleep apnea is contributing to this but he has not been able to tolerate CPAP. He would like to call back and after he is recovered from his shoulder replacement to schedule cystoscopy which is perfectly reasonable. I will await his call" Chart Review Chart Review: Acceptable Risk for Surgery and Patient seen in Pre Admission Testing Teaching & Discussion Pre-Anesthesia Teaching/Discussion Notes: Instructed NPO after midnight before surgery,except medications with 15 cc of water. Medication instructions provided according to the PAT guidelines. History Surgery Operation Date: 07/11/24 09:10 Proposed Procedures p Left Reverse Total Shoulder Arthroplasty - Alfa Lomeli DO Height/Weight Height: 5 ft 10 in Weight: 82.9 kg Allergies Allergy/AdvReac Type Severity Reaction Status Date / Time No Known Allergies Allergy Verified 05/21/24 11:38 Medications Home Medications Medication Instructions Recorded Confirmed Last Taken diphenhydramine 25 1 tab PO HS 04/20/21 05/21/24 06/13/22 mg-acetaminophen 500 mg tablet (Tylenol PM Extra Strength) amiodarone 200 mg tablet 100 mg PO QAM 06/12/23 05/21/24 Unknown rosuvastatin 40 mg tablet 40 mg PO DAILY #90 tabs 08/16/23 05/21/24 Unknown potassium chloride 20 mEq 20 meq PO DAILY #90 tabs 08/21/23 05/21/24 Unknown tablet,extended release amlodipine 2.5 mg tablet 2.5 mg PO HS #90 tabs 09/28/23 05/21/24 Unknown apixaban 5 mg tablet (Eliquis) 5 mg PO BID #180 tabs 11/01/23 05/21/24 Unknown hyoscyamine sulfate 0.125 mg tablet 0.125 mg PO HS PRN abdominal pain 11/01/23 05/21/24 Unknown #90 tabs pantoprazole 40 mg tablet,delayed 40 mg PO BID #180 tabs 11/01/23 05/21/24 Unknown release mirtazapine 7.5 mg tablet 7.5 mg PO DAILY #90 tabs 02/13/24 05/21/24 Unknown finasteride 5 mg tablet 5 mg PO DAILY #90 tabs 04/30/24 05/21/24 Unknown oxybutynin chloride 5 mg 5 mg PO QAM #90 tabs 04/30/24 05/21/24 Unknown tablet,extended release 24 hr tamsulosin 0.4 mg capsule 0.8 mg (2 x 0.4 mg) PO DAILY #180 04/30/24 05/21/24 Unknown caps carvedilol 25 mg tablet 25 mg PO BID #180 tabs 05/23/24 Unknown sacubitril 97 mg-valsartan 103 mg 1 tab PO BID #180 tabs 05/23/24 Unknown tablet (Entresto) Past Medical History Medical History Atrial fibrillation Mart's esophagus BPH (benign prostatic hyperplasia) CAD (coronary artery disease) Cath 2019: "Mild" non-obstructive CAD Diverticular disease Elevated lipoprotein(a) GERD (gastroesophageal reflux disease) Hiatal hernia History of colon polyps History of heart failure HTN (hypertension) Hx of non-ST elevation myocardial infarction (NSTEMI) (2019) Hx of supraventricular tachycardia (2021) No issues since cardioversion Hyperlipidemia Implantable loop recorder present Nonischemic cardiomyopathy Osteoarthritis PVC's (premature ventricular contractions) Sleep apnea Could not tolerate device Exercise / Class Metabolic Activity III < 4 Walking/Shop/Light housework (one FS: No CP, mild SOB) Past Family History Family History Other No family history of adverse response to anesthesia Denies family history of Ovarian cancer Prostate cancer Breast cancer Lung cancer Colorectal cancer Past Surgical History Surgical History History of cardiac cath (11/2019) [facility]- no stents History of cardioversion (2021) SVT History of colonoscopy History of esophagogastroduodenoscopy (EGD) History of hernia repair Age 11 History of prostate biopsy benign History of removal of cyst lumbar region History of right cataract surgery History of surgical procedure on mouth dental implants History of tooth extraction Past Anesthesia History No Hx of Anesthesia Complications and No Family Hx of Anesthesia Complications History of PONV No Hx of PONV and No Hx of Motion Sickness Social History Smoking Status: Former smoker tobacco type: cigarettes Do You Dip or Chew Tobacco: No Smoking End Date: Quit 50+ years ago (hx 1 Pack Highschool) Hx Alcohol Use: Yes Alcohol type: beer alcohol intake frequency: holidays/special occasions only (Rare) Hx Substance Use: No substance use type: does not use Review of Systems Patient denies chest pain, shortness of breath, fever, chills, cough, wheezing, palpitations. Physical Exam Vital Signs BP 108/73 P 69 TEMP SP02 96%RA RESP 16 Physical Full cervical extension range of motion. Full TMJ range of motion. TMD 3 finger breaths Mallampati Score III Dentition: intact, several caps/crowns/implants (sides/molars + "upper front crown") Lungs: clear throughout to auscultation Cardiac: regular rate and rhythm, no murmurs noted Spine: normal Carotid arteries: negative bruit Extremities: no LE edema Lab Results Anesthesia Preop Results Results Anesthesia Widget: WBC 6.36 K/ul (4.8-10.8) 06/04/24 Hgb 13.9 g/dl (14.0-18.0) L 06/04/24 Hct 40.9 % (42.0-52.0) L 06/04/24 Plt 155 K/uL (130-400) 06/04/24 Na 139 mmol/L (136-145) 06/04/24 K 4.1 mmol/L (3.5-5.1) 06/04/24 Cl 107 mmol/L (98-107) 06/04/24 CO2 25 mmol/L (21-32) 06/04/24 BUN 21 mg/dl (6-23) 06/04/24 Creat 1.00 mg/dl (0.6-1.4) 06/04/24 Glucose Level 92 mg/dl (70-99(Fasting)) 06/04/24 PT 10.9 Seconds (9.0-12.0) 06/04/24 PTT 29 Seconds (21-31) 06/04/24 INR 1.0 (0.9-1.1) 06/04/24 TSH 3.109 uIu/ml (0.300-4.500) 05/27/24 Blood Type A Positive 06/04/24 Antibody Screen NEGATIVE 06/04/24 Testing Electrocardiogram Date: 05/26/24 Wide QRS rhythm at 61 bpm. LAD. Nonspecific Intraventricular conduction block. Chest X-Ray Date: 06/04/24 FINDINGS: PA and lateral chest radiographs are compared to study dated 01/22/2023 and correlated with chest CT dated 07/29/2022. An electronic device projects over the left lower chest. The heart is mildly enlarged noting atherosclerotic calcification of the thoracic aorta. The pulmonary vasculature is noncongested. There is mild bibasilar atelectasis. The lungs and pleural spaces are otherwise clear. There is no pneumothorax. The skeletal structures are osteopenic. The bony thorax appears intact. Degenerative change is noted in the thoracic spine. IMPRESSION: Mild cardiomegaly with no active disease in the chest. Echocardiogram Date: 07/30/22 LVEF 50 to 55%. LV contrast was not used for the study but there appears to be anterior wall hypokinesis. RV systolic pressure is normal. Mild MR/TR. Stress Test Date: 11/01/22 Negative exercise stress echo for ischemia at 89% MPHR. Post-rest, there is no change in LV size, systolic function and wall motion, consistent with myopathic response to exercise. Negative exercise stress EKG for ischemia. 5.2 METS. Frequent PVCs at rest and in recovery with couplets, triplets, fusion complexes and a 5 beat run of NSVT. PVCs improved with exercise. Rest echo: Mild LVD. Basal inferior, basal inferior lateral and basal inferior septal LV echols are akinetic, consistent with RCAterritory infarct. LVEF 50%. No LVH. Cardiac Catheterization Date: 12/16/19 Left main: Left main was normal in size and caliber and bifurcated normally into left anterior descending and left circumflex arteries. No significant disease in this vessel Left anterior descending: Left anterior descending was a normal sized transapical vessel with some luminal irregularities in its proximal portion prior to the takeoff of the first diagonal branch. There did appear to be approximately 50% stenosis at the origin of the first diagonal which was a medium sized vessel. There were several smaller diagonal branches more dis tally. There were no other discrete lesions in this vessel Left circumflex: Left circumflex was a nondominant vessel. It produced a very small first OM branch and a large second OM system. The ongoing AV groove vessel was large in caliber and produced some diminutive additional obtuse marginal branches. There were no discrete lesions in this vessel. Right coronary artery: The right coronary artery was a dominant vessel. It did have some luminal irregularities in 2 discrete stenosis. 1 stenosis in the mid vessel approximately 30%. An additional stenosis slightly more distally approximately 20%. Recommendations: Medical Therapy and/or Counseling
--- NOTE | 2024-07-31 10:13 | History & Physical Report ---
Date of Service July 31, 2024 Assessment & Plan (1) Rotator cuff arthropathy of left shoulder: We will proceed with a left reverse shoulder arthroplasty. Postoperatively he will be placed in a sling and kept overnight in the hospital for postop medical management. He plans to go to [facility] after discharge. History of Present Illness Chief Complaint: Cuff tear arthropathy of the left shoulder. Primary Care Provider: Huyen Villa MD Brando is a pleasant 73-year-old male who fell about 6 weeks ago. He fell onto his left side. 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 After failing conservative treatment, he has elected to proceed with a left reverse shoulder arthroplasty. . Allergies Allergy/AdvReac Type Severity Reaction Status Date / Time No Known Allergies Allergy Verified 07/29/24 13:14 Home Medications Medication Instructions Recorded Confirmed Type diphenhydramine 25 1 tab PO HS 04/20/21 07/29/24 History mg-acetaminophen 500 mg tablet (Tylenol PM Extra Strength) amiodarone 200 mg tablet 100 mg PO QAM 06/12/23 07/29/24 History rosuvastatin 40 mg tablet 40 mg PO DAILY #90 tabs 08/16/23 07/29/24 Rx potassium chloride 20 mEq 20 meq PO DAILY #90 tabs 08/21/23 07/29/24 Rx tablet,extended release amlodipine 2.5 mg tablet 2.5 mg PO HS #90 tabs 09/28/23 07/29/24 Rx apixaban 5 mg tablet (Eliquis) 5 mg PO BID #180 tabs 11/01/23 07/29/24 Rx hyoscyamine sulfate 0.125 mg tablet 0.125 mg PO HS PRN abdominal pain 11/01/23 07/29/24 Rx #90 tabs pantoprazole 40 mg tablet,delayed 40 mg PO BID #180 tabs 11/01/23 07/29/24 Rx release mirtazapine 7.5 mg tablet 7.5 mg PO DAILY #90 tabs 02/13/24 07/29/24 Rx finasteride 5 mg tablet 5 mg PO DAILY #90 tabs 04/30/24 07/29/24 Rx oxybutynin chloride 5 mg 5 mg PO QAM #90 tabs 04/30/24 07/29/24 Rx tablet,extended release 24 hr tamsulosin 0.4 mg capsule 0.8 mg (2 x 0.4 mg) PO DAILY #180 04/30/24 07/29/24 Rx caps carvedilol 25 mg tablet 25 mg PO BID #180 tabs 06/23/24 07/29/24 Rx sacubitril 97 mg-valsartan 103 mg 1 tab PO BID #180 tabs 06/23/24 07/29/24 Rx tablet (Entresto) Past Med/Surg History Problem List Atherosclerosis of aorta on CXR 06/2024 Rotator cuff arthropathy of left shoulder Nocturia Elevated PSA Coronary artery disease Atrial fibrillation Complex sleep apnea syndrome Hypersomnia Insomnia Sleep disturbances Ventricular tachycardia (paroxysmal) (Acute) SVT (supraventricular tachycardia) BPH with obstruction/lower urinary tract symptoms Bilateral tinnitus Sensorineural hearing loss (SNHL) of both ears GERD (gastroesophageal reflux disease) Barretts esophagus Osteoarthritis, shoulder Frequent PVCs Nonischemic cardiomyopathy HLD (hyperlipidemia) Hypertension Medical History Atherosclerosis of aorta on CXR 06/2024 History of COVID-19 (07/08/24) [place]- cough, congestion, sinus drainage; resolved History of heart failure Hx of non-ST elevation myocardial infarction (NSTEMI) (2019) Nonischemic cardiomyopathy BPH (benign prostatic hyperplasia) Mart's esophagus GERD (gastroesophageal reflux disease) CAD (coronary artery disease) Cath 2019: "Mild" non-obstructive CAD Sleep apnea Could not tolerate device Hx of supraventricular tachycardia (2021) No issues since cardioversion Implantable loop recorder present HTN (hypertension) Atrial fibrillation controlled w/ medications; follows w/ Dr Del Cid Elevated lipoprotein(a) Diverticular disease History of colon polyps Osteoarthritis Hiatal hernia Hyperlipidemia PVC's (premature ventricular contractions) Surgical History History of cardioversion (2021) SVT History of right cataract surgery History of removal of cyst lumbar region History of prostate biopsy benign History of colonoscopy History of hernia repair Age 11 History of esophagogastroduodenoscopy (EGD) History of surgical procedure on mouth dental implants History of tooth extraction History of cardiac cath (11/2019) [facility]- no stents Family History Other No family history of adverse response to anesthesia Denies family history of Ovarian cancer Prostate cancer Breast cancer Lung cancer Colorectal cancer Social History Smoking Status: Former smoker Tobacco Type: Cigarettes Smoking End Date: Quit 50+ years ago (hx 1 [employer] Highschool); Second Hand Exposure: Yes (hx); Do You Dip or Chew Tobacco: No; Tobacco Cessation Education Requested by Patient: No Hx Alcohol Use: Yes Alcohol type: beer Hx Substance Use: No Preferred Language: Haitian Communication Ability: Effective Visual Impairment: No Limitations Hearing Ability: Normal Luster Applicator Required: No Beliefs That Will Affect Care: None marital status: Current Living Situation: Spouse current occupational status: retired 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 Physical Exam Physical examination left shoulder, he has a pseudoparalysis. He has pain with glenohumeral joint line.. Constitutional WD/WN, vitals as above Eyes PERRL, conjunctivae normal, anicteric sclerae ENMT external ear and nose normal, oropharynx normal Neck trachea midline, no thyromegaly Respiratory normal respiratory effort Cardiovascular RRR, no murmur, no edema Gastrointestinal (Abdomen) normal bowel sounds, soft, nontender, no hepatosplenomegaly Psychiatric A+Ox3, euthymic affect Results & Data Results & Data Laboratory Results . Diagnostic Findings CT scan of the left shoulder shows a massive retracted rotator cuff tear and superior migration of the humeral head on the glenoid.. PG Care Time/CCT Total # of Minutes Spent Total Time Spent with Patient: Total time spent is greater than 50% in coordination of care (as documented) at patient's floor/unit and/or counseling patient: Coding Level of Care Code None Diagnoses Rotator cuff arthropathy of left shoulder M12.812
[~2024-08-01 07:52] MED LIST changes: +ACETAMINOPHEN 500 MG TAB PO SCH; -ASPI81TA21 PO; -ATOR-22 PO; +BUPIVACAINE 0.5 % 5 MG/1 ML PF 10ML VIAL ONE; -DEXL60CA4 PO; +FAMOTIDINE 20 MG TAB PO SCH; +GABAPENTIN 300 MG CAP PO SCH; -IBUP-1050 PO; -LOSA50TA6 PO; +LR 15ML/HR IV SCH; +LR 60ML/HR IV SCH; -NAPR-998 PO; -RANI150T85 PO; +ROPIV 0.5% 246mg, Ketorolac 30mg, EPINEPHrine 0.5mg in NSS INFIL SCH; -TAMS0.4C59 PO; +TRANEXAMIC ACID 1,000 MG **IV Intra-op IV SCH; +TRANEXAMIC ACID 1,000 MG **IV Pre-op IV SCH; -TRIATAB3 PO; +ceFAZolin 2000MG 2,000 MG/15 ML SYR IV SCH; +dexAMETHasone**PF** 10 MG/ML VIAL IV SCH
--- OUTSIDE RECORDS SUMMARY | 2024-08-01 08:06 | External Medical Summary | Continuity of Care Document ---
Author Name Unknown Organization [facility] [address] [place] [address] SALONI TEIXEIRA [phone] Care Team Providers Care Corn Crop Supervisor Name Role Phone Huyen Villa Primary Care Physician [id number] [id number] Date(s): 07/18/24 - 07/18/24 [facility] [place] - [address], [address], [address] [place] Rain [address] [phone] Discharge Disposition: Home or Self Care Attending Physician: MD Hallman Sarah Referring Physician: MD Hallman Sarah Allergies, Adverse Reactions, Alerts No Known Allergies Medications amiodarone 100 mg oral tablet Start: 11/26/23 1:19:00 PM EST, 1 tab, PO, Daily, Disp# 30 tab, other Start Date: 11/26/23 Stop Date: 12/26/23 Status: Ordered amLODIPine 2.5 mg oral tablet Start: 11/26/23 12:42:00 PM EST, 1 tab, PO, Daily Start Date: 11/26/23 Status: Ordered carvedilol 25 mg oral tablet Start: 07/21/20 8:10:00 AM EDT, 1 tab, PO, bid Start Date: 07/21/20 Status: Ordered Eliquis 5 mg oral tablet Start: 10/19/22 2:18:00 PM EST, 1 tab, PO, bid, Disp# 60 tab, Refills: 3, Note to Pharmacy: Patient may still have some tabs left from his prior prescription., Pharmacy: [facility] Start Date: 10/19/22 Stop Date: 02/16/23 Status: Ordered Entresto 97 mg-103 mg oral tablet Start: 07/21/20 8:11:00 AM EDT, 1 tab, PO, bid Start Date: 07/21/20 Status: Ordered finasteride 5 mg oral tablet Start: 07/27/22 8:21:00 AM EDT, 1 tab, PO, Daily Start Date: 07/27/22 Status: Ordered hyoscyamine Start: 07/26/21 8:14:00 AM EDT, 0.125 mg =, PO, at bedtime as needed for abdominal pain Start Date: 07/26/21 Status: Ordered mirtazapine 7.5 mg oral tablet Start: 07/27/22 8:21:00 AM EDT, 1 tab, PO, qhs Start Date: 07/27/22 Status: Ordered oxybutynin 5 mg/24 hours oral tablet, extended release Start: 07/27/22 8:21:00 AM EDT, 1 tab, PO, Daily, PRN: as needed for urinary discomfort Start Date: 07/27/22 Status: Ordered pantoprazole 40 mg oral delayed release tablet Start: 10/04/22 1:35:00 PM EST, 1 tab, PO, bid Start Date: 10/04/22 Status: Ordered Potassium Chloride ([id number] M20) 20 mEq oral tablet, extended release Start: 12/22/22 9:44:00 AM EST, 1 tab, PO, Daily Start Date: 12/22/22 Status: Ordered rosuvastatin Start: 11/26/23 12:43:00 PM EST, 40 mg =, PO, Daily Start Date: 11/26/23 Status: Ordered tamsulosin 0.4 mg oral capsule Start: 07/08/13 7:53:00 AM EDT, 2 cap, PO, Daily Start Date: 07/08/13 Status: Ordered Tylenol PM Start: 07/09/15 11:03:00 AM EDT, 1 tab, PO, qhs Start Date: 07/09/15 Status: Ordered Problem List Condition Confirmation Course Effective Dates Status Health St atus Informant CHF (congestive heart failure) Confirmed 11/2019 Active Torn rotator cuff 1 Confirmed Active On amiodarone therapy Confirmed Active Dysplastic nevus Confirmed Active Enlarged prostate Confirmed Active High cholesterol Confirmed Active HTN (hypertension) Confirmed Active Heart attack Confirmed 11/2019 Active Near syncope Confirmed Active Atrial fibrillation, rapid Confirmed Active Reflux Confirmed Active SK (seborrheic keratosis) Confirmed Active 1right shoulder Procedures Procedure Date Related Diagnosis Body Site Status Extraction of cataracts from both eyes 06/2022 Completed Echocardiogram 1 12/15/19 Complete d Endoscopy 01/2014 Completed 2 dental implants Complet ed hernia repair Completed Surgery 2 Completed 1see scanned report 2synovial cyst removed spine Social History Social History Type Response Smoking Status Never smoked cigaret elena Sex Male Sex Representation Male (finding) Patient Care team information Care Team Personnel Name: MD Daisy, Huyen León Position: Referring Member Role: Primary Care Provider Address: [facility] Internal Medicine [address], [address] [place] [address] Care Team Related Persons Name: TOM BEEBE
[2024-08-01] MEDS: LR 60ML/HR IV SCH (08:37)
[2024-08-01] MEDS: LR 15ML/HR IV SCH (08:43)
[2024-08-01] MEDS: ACETAMINOPHEN 500 MG TAB PO SCH ×2 (08:43→14:03)
[2024-08-01] MEDS: dexAMETHasone**PF** 10 MG/ML VIAL IV SCH (08:44)
[2024-08-01] MEDS: GABAPENTIN 300 MG CAP PO SCH (08:44)
[2024-08-01] MEDS: FAMOTIDINE 20 MG TAB PO SCH (08:44)
[2024-08-01] MEDS ORDERED: MIDAZOLAM HCL 1 MG/ML 2ML VIAL ONE (08:51)
[2024-08-01] MEDS ORDERED: fentaNYL citrate PF 100 MCG/2 ML VIAL ONE (08:51)
--- NOTE | 2024-08-01 09:21 | History & Physical Bridge Note ---
Date of Service August 01, 2024 History & Physical Bridge Note I have examined the patient, reviewed the History & Physical and in the interval since the performance of the History & Physical I have noted the following changes of clinical significance: no changes noted
[2024-08-01] MEDS ORDERED: fentaNYL citrate PF 100 MCG/2 ML VIAL IV PRN (09:28)
[2024-08-01] MEDS ORDERED: ATROPINE SULFATE 0.1 MG/ML 10ML SYR IV PRN (09:28)
[2024-08-01] MEDS ORDERED: ePHEDrine sulfate 50 MG/ML AMP IV PRN (09:28)
[2024-08-01] MEDS ORDERED: ONDANSETRON INJ 2 MG/ML 2 ML VIAL IV PRN ×2 (09:28→13:33)
[2024-08-01] MEDS ORDERED: PROMETHAZINE HCL 6.25 MG in SODIUM CHLORIDE 0.9% 50 ML IV PRN (09:28)
[2024-08-01] MEDS: TRANEXAMIC ACID 1,000 MG **IV Pre-op IV SCH (09:38)
[2024-08-01] MEDS: ceFAZolin 2000MG 2,000 MG/15 ML SYR IV SCH ×2 (09:50→18:02)
[2024-08-01] MEDS ORDERED: ONDANSETRON INJ 2 MG/ML 2 ML VIAL ONE (10:18)
[2024-08-01] MEDS ORDERED: PROPOFOL IV EMULSION 10 MG/ML 20 ML VIAL IV ONE (10:18)
[2024-08-01] MEDS ORDERED: DEXAMETHASONE SOD INJ 4 MG/ML VIAL ONE (10:18)
[2024-08-01] MEDS: ROPIV 0.5% 246mg, Ketorolac 30mg, EPINEPHrine 0.5mg in NSS INFIL SCH (10:22)
[2024-08-01] MEDS: ORTHO JOINT ANESTHETIC ONE (10:22)
[2024-08-01] MEDS: TRANEXAMIC ACID 1,000 MG **IV Intra-op IV SCH (10:40)
--- NOTE | 2024-08-01 10:45 | Operative Report ---
PG Post Operative Report Pre & Post Diagnosis Operation Date: 08/01/24 10:00 Pre-Op Diagnosis: Left Shoulder cuff tear arthropathy Post-Op Diagnosis: Left Shoulder cuff tear arthropathy I identified the patient and participated in the time-out.: Yes Procedure Operation Date: 08/01/24 10:00 Actual Procedures p Left Reverse Total Shoulder Arthroplasty(Left) - Alfa Lomeli DO Surgeon Alfa Lomeli DO Vice President Financial Alfa Garcia PA-C Estimated Blood Loss 150 Findings Consistent with Post-Op Diagnosis Specimens Left humeral head Description of Procedure Implants used: I used a Biomet Comprehensive reverse total shoulder arthroplasty system with a size 12 press fit micro humeral stem, a +3 offset humeral tray and a standard humeral bearing, a 25 mm small augment baseplate with a 6.5 mm central screw and superior and inferior locking screws, and a size 40 mm eccentric glenosphere. Brando arrived at [facility] for the above procedure. He was seen in the preoperative holding area and the operative extremity was identified and signed. He was given a preoperative antibiotic, TXA, and an interscalene nerve block. He was taken back to the operating room, laid on table in supine position, and put under general anesthesia. He was then put into the beachchair position. The shoulder was then prepped and draped in sterile fashion. A timeout was done and the patient and the operative extremity was properly identified. A deltopectoral approach was used. Dissection was taken down through the fascia and the deltoid was retracted laterally and the conjoined tendon was retracted medially. The anterior shoulder was exposed. The biceps tendon was chronically torn. The subscapularis was then directly released off the lesser tuberosity with a peel technique. The inferior capsule was released and the humeral head was dislocated. A canal finding reamer was sent down the center of the humeral canal. Sequential reaming up to a size 12 reamer was done. Off that reamer, a proximal humeral resection guide was placed. The proximal humerus was resected at 135 of inclination and 25 of retroversion. Osteophytes were then removed and the glenoid was exposed. Time was spent doing a complete capsular and labral release. The glenoid guide was then placed in the inferior aspect of the glenoid. A 3.2 mm Steinmann pin was then placed into the glenoid vault at 10 of inclination. The glenoid baseplate was then reamed. The final size 25 mm small augment baseplate was then impacted in the place. A 6.5 mm central screw was then placed followed by superior and inferior locking screws. A 40 mm eccentric glenosphere was then impacted into place. Surrounding soft tissues were then injected with 100 cc an orthopedic pain control cocktail. The proximal humerus was then exposed. Sequential broaching of the humerus up to a size 12 broach was done. Off that broach a +3 offset humeral tray was trialed. The shoulder was then reduced, brought through a full range of motion, and felt to be stable. The shoulder was then dislocated and the broach was removed. The final size 12 micro press-fit humeral stem was then impacted into place. A standard humeral bearing was then snapped onto a +3 offset humeral tray. The humeral tray was then impacted onto the humeral stem. The shoulder was once again reduced, brought through a full range of motion, and felt to be stable. Subscapularis was chronically retracted and unable to be repaired. A dilute betadyne lavage was then done for 3 minutes. The joint was then irrigated with normal saline solution. Hemostasis was obtained. The interval was closed with 2-0 Vicryl suture. The skin was then closed with 2-0 Vicryl and michelle. A Silverlon dressing was placed and the arm was rested in a regular arm sling. He was then extubated and transferred to a hospital bed. He taken to the postanesthesia care unit in stable condition. He tolerated the procedure well. Alfa Garcia PA-C, was present for the entire procedure. He was critical for patient positioning, prepping, draping, retraction exposure, wound closure and application of sterile dressing. I attest to the content of the Intraoperative Record and any orders documented therein. Any exceptions are noted below.
[2024-08-01] MEDS ORDERED: PHENYLEPHRINE 100MCG/ML 10ML SYR IV ONE (10:46)
--- NOTE | 2024-08-01 11:30 | Anesthesiology Progress Note ---
Date of Service August 01, 2024 Anesthesia Post Procedure Vital Signs Vital Signs: Temp Pulse Pulse Resp BP Pulse Ox O2 Del Method 08/01/24 11:25 59 L 15 128/77 94 Nasal Cannula 08/01/24 11:15 61 15 117/78 96 Oxymask 08/01/24 11:05 36.0 C L 62 17 116/72 94 Oxymask 08/01/24 08:22 Room Air 08/01/24 08:22 36.9 C 67 20 137/88 99 Room Air O2 Flow Rate 08/01/24 11:25 2 08/01/24 11:15 6 08/01/24 11:05 6 08/01/24 08:22 08/01/24 08:22 Pain Intensity Left Shoulder: Pain Intensity: 0 Transfer of Care Handoff Completed per policy Notes Mental Status: alert / awake / arousable Patient Amnestic to Procedure: Yes Nausea / Vomiting: adequately controlled Pain: adequately controlled Airway Patency, RR, SpO2: stable & adequate BP & HR: stable & adequate Hydration State: stable & adequate Anesthetic Complications: no major complications apparent and Pt Satisfied with anesthetic care
[2024-08-01] MEDS ORDERED: oxyCODONE HCL IR 5 MG TAB (IMMEDIATE RELEASE) PO PRN (13:33)
[2024-08-01] MEDS ORDERED: NALOXONE HCL 0.4 MG/1 ML VIAL/CARP IV PRN (13:33)
[2024-08-01] MEDS ORDERED: MAGNESIUM HYDROXIDE SUSP 30 ML UDC PO PRN (13:33)
[2024-08-01] MEDS ORDERED: HYDROmorphone INJ 0.5 MG/0.5 ML SYR IV PRN (13:33)
[2024-08-01] MEDS ORDERED: bisacodyL 10 MG SUPP PR PRN (13:33)
[2024-08-01] MEDS ORDERED: METOCLOPRAMIDE HCL INJ 5 MG/ML 2 ML VIAL IV PRN (13:33)
[2024-08-01] MEDS: KETOROLAC TROMETHAMINE 15 MG/ML VIAL IV SCH (14:03)
[2024-08-01] MEDS: SODIUM CHLORIDE 0.9% 1,000 ML IV SCH (14:03)
--- NOTE | 2024-08-01 17:11 | XRay Report ---
XR shoulder LT min 2V routine CLINICAL HISTORY: Post shoulder surgery TECHNIQUE: 3 views of the left shoulder were obtained. Comparison: Comparison is made to shoulder radiograph 03/23/2024 FINDINGS: Patient is status post shoulder arthroplasty with expected postsurgical changes including soft tissue swelling and subcutaneous emphysema. No periarticular lucency or hardware fracture is seen. IMPRESSION: Expected postoperative appearance status post placement of shoulder arthroplasty. ACT 112: Negative or not required by law. Electronically signed by: Rojas Lamar M.D. 08/01/2024 5:10 PM
[2024-08-01] MEDS: VALSARTAN/SACUBITRIL 103/97MG TAB PO SCH (21:53)
[2024-08-01] MEDS: DOCUSATE SODIUM 100 MG CAP PO SCH (21:53)
[2024-08-01] MEDS: SENNA 8.6 MG TAB PO SCH (21:53)
[2024-08-01] MEDS: carvediloL 25 MG TAB PO SCH (21:54)
[2024-08-01] MEDS: amLODIPine BESYLATE 5 MG TAB PO SCH (21:54)
[2024-08-01] MEDS: diphenhydrAMINE Capsule 25 MG CAP PO SCH (21:54)
--- NOTE | 2024-08-02 08:06 | Orthopedic Progress Note ---
Date of Service August 02, 2024 Assessment & Plan (1) Status post reverse total replacement of left shoulder: Overall he is doing very well. He is not having much pain in the left shoulder. He will be seen by physical therapy today for ambulation and range of motion exercises. He can be discharged home later today. He will follow-up orthopedics in 2 weeks. Jasson Michaels was seen and examined at bedside this morning. Overall is doing very well. Is not having much pain in the left shoulder. The nerve block is still in effect. He has no complaints.. Review of Systems All systems reviewed & are unremarkable except as noted in HPI & below. Physical Exam On physical examination of the left shoulder, the dressing is clean and dry. He is wearing his sling as instructed. He has active motion of his hand and his wrist.. Results & Data Results & Data Laboratory Results . Diagnostic Findings Postoperative x-rays of the left shoulder show the prosthesis to be in anatomic alignment without any evidence of fracture complication, or loosening.. PG Care Time/CCT Total # of Minutes Spent Total Time Spent with Patient: Total time spent is greater than 50% in coordination of care (as documented) at patient's floor/unit and/or counseling patient: Coding Level of Care Code 50874 Post Operative Follow-Up Diagnoses Status post reverse total replacement of left shoulder Z96.612
--- NOTE | 2024-08-02 08:07 | Discharge Summary ---
Date of Service August 02, 2024 Admission HPI (Per Admitting) Brando is a pleasant 73-year-old male who fell about 6 weeks ago. He fell onto his left side. 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 After failing conservative treatment, he has elected to proceed with a left reverse shoulder arthroplasty. . Admission Exam (Per Admitting) Physical examination left shoulder, he has a pseudoparalysis. He has pain with glenohumeral joint line.. Principal Diagnosis Same as "Discharge Diagnosis" noted below under Discharge Instructions. Discharge Exam On physical examination of the left shoulder, the dressing is clean and dry. He is wearing his sling as instructed. He has active motion of his hand and his wrist.. Discharge Data Procedures Performed Operation Date: 08/01/24 10:00 Actual Procedures p Left Reverse Total Shoulder Arthroplasty(Left) - Alfa Lomeli DO Ordered Studies 08/01/24 05:00 US - OR guided needle placemen Routine Hospital Course (1) Status post reverse total replacement of left shoulder: On August 01, 2024 Brando arrived at [facility] and underwent a left reverse shoulder replacement without complication. He had a general anesthetic and a left interscalene nerve block. Postoperatively he was placed in a sling and transferred to the general orthopedic floors. His hospital course was uneventful. On postop day #1, his vital signs were stable and his pain was well-controlled. He was able to participate well with physical therapy doing ambulation and range of motion exercises. He was then discharged to home. He will follow-up with orthopedics in 2 weeks. PG Care Time/CCT Total # of Minutes Spent Total Time Spent with Patient: Total time spent is greater than 50% in coordination of care (as documented) at patient's floor/unit and/or counseling patient: Discharge Plan Discharge Items Patient Disposition: Home - Self-Care Reason For Visit: Left Shoulder Degenerative Joint Disease Discharge Diagnosis: Left reverse shoulder replacement Activity: Per Instructions section Non-emergency contact: Surgeon Call non-emergency contact if: your wound has increased redness and your wound has increased drainage Follow-up/Referrals: Huyen Villa MD [Primary Care Provider] - Diet: Regular Addtl Attending Provider Instructions: Activity and Therapy Recommendations: * If you are using [facility] then therapy will be provided at your home until they feel you have accomplished all of your goals. * If you are using [facility] then Physical Therapy will be provided until they feel you are ready to start Outpatient Physical Therapy. * If you are not using home therapy then Outpatient Physical Therapy should start about 3-5 days from your day of surgery. Therapy will last about 8-12 weeks * Wear your sling for 3 weeks, unless otherwise instructed. You may remove your sling to shower and to dress, but otherwise, you should be in your sling at all times, including while sleeping * The shoulder replacement is very stable and you can use your hand while in the sling * You were shown a series of exercises in the hospital. Do these exercises daily including the exercises you were shown in physical therapy. Medications: * Narcotic You will likely be sent home from the hospital with a prescription for the narcotic pain medication that worked best throughout your stay. * Cefadroxil -take the antibiotic twice a day for 10 days to help prevent infection. * Other medications may be prescribed for specific circumstances. If you have any questions, please call the office at . * Resume previous home medications unless otherwise instructed Dressing Care: Leave the Silverlon dressing in place for 7 days. After 7 days you may remove the dressing. If the incision is not draining then you may leave the michelle open to air. If there is a little bit of drainage or if the michelle are getting stuck on your clothing then cover the incision with a dry dressing. The michelle will be removed at your 2 week follow-up appointment. Showering: You may shower with the Silverlon dressing in place. Do not let the shower spray hit the dressing directly. Pat the Silverlon dressing dry. If the dressing becomes wet underneath, then simply remove the dressing. Keep the incision dry until you are 7 days out from the day of surgery. After 7 days you may remove the Silverlon dressing and shower with the michelle exposed. Let soapy water run over the michelle and pat them dry. Do not scrub or soak the incision. Things To Watch For: * Drainage from the incision site that occurs more than one week after your surgery. * Increased redness at the incision site. * Fever above 102 degrees Fahrenheit. * Unusual chest pain or shortness of breath. * Call [facility] at with any of the above problems Follow-Up Visit: Follow-up with Dr. Lomeli's PA (Alfa Garcia) 2-3 weeks after your day of surgery. He will remove your michelle and answer any questions. If you have any additional questions or concerns, Dr Lomeli is usually in the office at the same time and will be available An appointment was probably scheduled when you signed-up for surgery in the office. If you have any questions call More detailed instructions as well as Frequently Asked Questions were provided in a folder by our office when you signed-up for surgery. Please review these instructions when you get home. If you have any further questions or concerns, please feel free to call the office at [phone] Pending Studies at Discharge: No Stand-Alone Forms: My [facility], Smoking Cessation Medications and DC Order Prescriptions: New oxycodone 5 mg Tablet 5 mg PO Q4H PRN (Reason: pain) Qty: 30 0RF Continued potassium chloride 20 mEq tablet extended release 20 meq PO DAILY Qty: 90 3RF amlodipine 2.5 mg tablet 2.5 mg PO HS Qty: 90 3RF hyoscyamine sulfate 0.125 mg tablet 0.125 mg PO HS PRN (Reason: abdominal pain) Qty: 90 3RF pantoprazole 40 mg tablet,delayed release (DR/EC) 40 mg PO BID Qty: 180 3RF Eliquis 5 mg tablet 5 mg PO BID Qty: 180 3RF mirtazapine 7.5 mg tablet 7.5 mg PO DAILY Qty: 90 3RF carvedilol 25 mg tablet 25 mg PO BID Qty: 180 3RF Rx Instructions: must administer with a meal/food Entresto 97-103 mg tablet 1 tab PO BID Qty: 180 3RF tamsulosin 0.4 mg capsule 0.8 mg PO DAILY Qty: 180 3RF oxybutynin chloride 5 mg tablet extended release 24hr 5 mg PO QAM Qty: 90 3RF finasteride 5 mg tablet 5 mg PO DAILY Qty: 90 3RF rosuvastatin 40 mg tablet 40 mg PO DAILY Qty: 90 3RF amiodarone 200 mg tablet 100 mg PO QAM diphenhydramine-acetaminophen [Tylenol PM Extra Strength] 25-500 mg Tablet 1 tab PO HS Discharge Orders: Discharge Order (Routine); Ordered 08/02/24 Ordered By: Alfa Lomeli Admission Data Admit Date/Time: 08/01/24 11:03 Attending Provider: Afla Lomeli Admit Provider: Alfa Lomeli Primary Care Provider: Huyen Villa
[2024-08-02] MEDS: dexAMETHasone 4 MG TAB PO SCH (09:56)
[2024-08-02] MEDS: AMIODARONE 200 MG TAB PO SCH (09:57)
[2024-08-02] MEDS: ROSUVASTATIN CALCIUM 20 MG TAB PO SCH (09:57)
[2024-08-02] MEDS: MULTIVITAMIN TAB PO SCH (09:57)
[2024-08-02] MEDS: OXYBUTYNIN CHLORIDE XL 5 MG TABCR PO SCH (09:58)
[2024-08-02] MEDS: MIRTAZAPINE TAB 15 MG TAB PO SCH (09:59)
[2024-08-02] MEDS: HYOSCYAMINE SULFATE 0.125 MG TAB PO PRN (09:59)
[2024-08-02] MEDS: FINASTERIDE 5 MG TAB PO SCH (09:59)
[2024-08-02] MEDS: APIXABAN 5 MG TABLET PO SCH (10:01)
[2024-08-02] MEDS: TAMSULOSIN HCL 0.4 MG CAP PO SCH (10:01)
[2024-08-02] MEDS: POTASSIUM CHLORIDE CRTAB 20 MEQ TABCR PO SCH (10:06)
[2024-08-02 10:51] VITALS: BP 110/72; PULSE 74; RESP 16; TEMP 98.1; O2SAT 95
== END 2024-08-02 11:59 | disposition home or self-care (01) ==
LOC: ASU 07:52 → PACUINP 07:52 → 3W 13:26